=== PATIENT | female | born 1935 | race Asian ===

== ENCOUNTER 2019-10-05 23:36 | Inpatient (IN) | payer MEDICARE, MEDICAID ==
[~2019-10-05] VITALS: Ht 160 cm; Wt 46.0 kg
--- NOTE | 2019-10-05 23:40 | NUR ---
ED Nurse Note: Pt brought in by ambulance from [facility] c/o short of breath since 2199. Pt EMS, pt was satting at 77% RA and 91% on high flow NRB. Pt has pink frothy sputum. AO4 NAD. VSS. RT AT BEDSIDE FOR SUCTIONING
--- NOTE | 2019-10-05 23:40 | Emergency Room Report ---
History of Present Illness General Chief Complaint: Dyspnea/Respdistress Source: Patient, EMS Present Illness HPI 84-year-old female, presents with acute shortness of breath, hypoxia started 1 hour prior to arrival no known aggravating relieving factors severity is severe , constant, history is limited due to patient's acute shortness of breath, Allergies: Coded Allergies: No Known Allergies (Unverified , 10/05/19) Patient History Limited by: medical condition - Respiratory distress Reviewed Nursing Documentation: PMH: Agreed; PSxH: Agreed Review of Systems All Other Systems: limited - Acute shortness of breath Physical Exam Sp02 EP Interpretation: reviewed, abnormal - Reduced General Appearance: alert, moderate distress, cachetic Head: normocephalic, atraumatic Eyes: bilateral eye PERRL, bilateral eye EOMI ENT: uvula midline, dry mucus membranes Neck: supple, thyroid normal, supple/symm/no masses Respiratory: respiratory distress, decreased breath sounds, accessory muscle use, crackles, rales Cardiovascular #1: normal peripheral pulses, no edema, no gallop, no murmur, tachycardia Gastrointestinal: non tender, soft, no guarding, no rebound Musculoskeletal: normal inspection Neurologic: alert, oriented x3 Psychiatric: mood/affect normal Skin: no rash, warm/dry Procedures Critical Care Time Critical Care Time Given the critical condition in which the patient arrived, the patient was immediately assessed by myself and the nurse, and cardiac monitoring initiated due to the potential for rapid decompensation of the patient's clinical condition. During the course of the patient's stay, I spent a considerable amount of time at the bedside performing serial re-evaluations of the patient's hemodynamic and clinical status because of the recognized potential threat to life or limb in this condition. I then had a chance to review not only all of the available current laboratory and radiographic studies obtained today, but I also reviewed old records available to me at the time. Additionally, any ancillary information available including electronics test engineer records were reviewed. Sequential vital signs were obtained. Critical Care time of 37 minutes was performed exclusive of billable procedures. Medical Decision Making Diagnostic Impression: Primary Impression: Dyspnea Qualified Codes: R06.00 - Dyspnea, unspecified Additional Impressions: Respiratory distress CHF exacerbation Qualified Codes: I50.9 - Heart failure, unspecified ER Course 84-year-old female presents with acute shortness of breath, differential diagnosis includes ACS, and STEMI, CHF exacerbation, pneumonia Broad-spectrum antibiotic started, patient stated on BiPAP due to her respiratory distress patient improved with BiPAP administration additionally patient was given Lasix as well as nitroglycerin with significant improvement in her breathing Patient will be admitted to Dr. Schmitt Patient will be admitted to step down unit. Laboratory Tests Test 10/05/19 23:36 10/06/19 00:00 10/06/19 01:30 Arterial Blood pH 7.326 (7.350-7.450) Arterial Blood Partial Pressure CO2 51.0 mmHg (35.0-45.0) H Arterial Blood Partial Pressure O2 89.0 mmHg (75.0-100.0) Arterial Blood HCO3 26.0 mmol/L (22.0-26.0) Arterial Blood Oxygen Saturation 95.5 % (95-100) Arterial Blood Base Excess -0.8 (-2-2) Norm Test Positive White Blood Count 6.6 K/UL (4.8-10.8) Red Blood Count 4.45 M/UL (4.20-5.40) Hemoglobin 15.9 G/DL (12.0-16.0) Hematocrit 45.7 % (37.0-47.0) Mean Corpuscular Volume 103 FL (80-99) H Mean Corpuscular Hemoglobin 35.7 PG (27.0-31.0) H Mean Corpuscular Hemoglobin Concent 34.8 G/DL (32.0-36.0) Red Cell Distribution Width 12.9 % (11.6-14.8) Platelet Count 65 K/UL (150-450) L Mean Platelet Volume 9.4 FL (6.5-10.1) Neutrophils (%) (Auto) % (45.0-75.0) Lymphocytes (%) (Auto) % (20.0-45.0) Monocytes (%) (Auto) % (1.0-10.0) Eosinophils (%) (Auto) % (0.0-3.0) Basophils (%) (Auto) % (0.0-2.0) Differential Total Cells Counted 100 Neutrophils % (Manual) 97 % (45-75) H Lymphocytes % (Manual) 2 % (20-45) L Monocytes % (Manual) 1 % (1-10) Eosinophils % (Manual) 0 % (0-3) Basophils % (Manual) 0 % (0-2) Band Neutrophils 0 % (0-8) Platelet Estimate Decreased L Platelet Morphology Normal Prothrombin Time 13.6 SEC (9.30-11.50) H Prothrombin Time INR 1.3 (0.9-1.1) H Activated Partial Thromboplast Time 24 SEC (23-33) Urine Color Brown Urine Appearance Clear Urine pH 5 (4.5-8.0) Urine Specific [place] 1.015 (1.005-1.035) Urine Protein 2+ (NEGATIVE) H Urine Glucose (UA) Negative (NEGATIVE) Urine Ketones Negative (NEGATIVE) Urine Blood 2+ (NEGATIVE) H Urine Nitrite Negative (NEGATIVE) Urine Bilirubin Negative (NEGATIVE) Urine Urobilinogen 4 MG/DL (0.0-1.0) H Urine Leukocyte Esterase 1+ (NEGATIVE) H Urine RBC 2-4 /HPF (0 - 2) H Urine WBC 2-4 /HPF (0 - 2) Urine Squamous Epithelial Cells Occasional /LPF Urine Calcium Oxalate Crystals Few /LPF (NONE) Urine Amorphous Sediment Few /LPF (NONE) H Urine Bacteria Occasional /HPF (NONE) Urine Hyaline Casts 2-4 /LPF (NONE) H Urine Mucus Few /LPF (NONE/OCC) H Sodium Level 133 MMOL/L (136-145) L Potassium Level 5.4 MMOL/L (3.5-5.1) H Chloride Level 96 MMOL/L (98-107) L Carbon Dioxide Level 27 MMOL/L (21-32) Anion Gap 10 mmol/L (5-15) Blood Urea Nitrogen 32 mg/dL (7-18) H Creatinine 0.9 MG/DL (0.55-1.30) Estimate Glomerular Filtration Rate mL/min (>60) Glucose Level 122 MG/DL (74-106) H Lactic Acid Level 3.90 mmol/L (0.4-2.0) H 4.40 mmol/L (0.66-2.22) H Calcium Level 8.8 MG/DL (8.5-10.1) Phosphorus Level 5.2 MG/DL (2.5-4.9) H Magnesium Level 1.6 MG/DL (1.8-2.4) L Total Bilirubin 2.8 MG/DL (0.2-1.0) H Direct Bilirubin 0.9 MG/DL (0.0-0.3) H Aspartate Amino Transferase (AST) 65 U/L (15-37) H Alanine Aminotransferase (ALT) 49 U/L (12-78) Alkaline Phosphatase 103 U/L (46-116) Troponin I 0.069 ng/mL (0.000-0.056) Pro-B-Type Natriuretic Peptide > 60910 pg/mL (0-125) H Total Protein 6.7 G/DL (6.4-8.2) Albumin 3.0 G/DL (3.4-5.0) L Globulin 3.7 g/dL Albumin/Globulin Ratio 0.8 (1.0-2.7) L Lipase 134 U/L (73-393) EKG Diagnostic Results EKG Time: 00:07 EP Interpretation: Atrial fibrillation, rate 93, QTc 417, no acute ST elevations, right axis d Rhythm Strip Diag. Results Rhythm Strip Time: 02:27 EP Interpretation: yes Rate: 89 Rhythm: other - Atrial fibrillation Chest X-Ray Diagnostic Results Chest X-Ray Diagnostic Results : Chest X-Ray Ordered: Yes # of Views/Limited/Complete: 1 View Indication: Shortness of Breath EP Interpretation: Yes Interpretation: other - Pulmonary edema Impression: Other - Pulmonary edema Electronically Signed by: Rao Tafoya MD Disposition: ADMITTED INPATIENT Condition: Serious Rao Tafoya MD Oct 05, 2019 23:40
[2019-10-05] MEDS ORDERED: Cefepime HCl 2 GM in NS 110 ML IV ONE (23:45)
[2019-10-05] MEDS ORDERED: Nitroglycerin Patch 0.4mg TDERMAL ONE (23:45)
[2019-10-06] VITALS (9 sets, daily range): BP systolic 90–132; BP diastolic 41–82
--- NOTE | 2019-10-06 | NUR ---
ED Nurse Note: BANSAL INSERTED; INTACT AND PATENT; DRAINING WELL TO GRAVITY. IV ACCESS ESTABLISHED. BLOOD, INITIAL LACTIC, URINE, VRECRE MRSA SWAB COLLECTED; SENT DOWN TO LAB. WOUND NOTED ON SACRAL; PHOTO TAKEN AND UPLOADED.
[2019-10-06] MEDS ORDERED: SENOKOT8.6 MG PO (00:10)
[2019-10-06] MEDS ORDERED: COLACE100 MG ORAL (00:10)
[2019-10-06] MEDS ORDERED: SPIRONOLACTONE50 MG ORAL (00:10)
[2019-10-06] MEDS ORDERED: OMEPRAZOLE20 M2 ORAL (00:10)
[2019-10-06] MEDS ORDERED: GLUCOTROL10 MG ORAL (00:10)
[2019-10-06] MEDS ORDERED: ALBUTEROL2.5 MG/0.1 IH (00:10)
[2019-10-06] MEDS ORDERED: PANTOPRAZOLE SO40 MG ORAL (00:10)
[2019-10-06] MEDS ORDERED: GLUCOTROL5 MG ORAL (00:10)
[2019-10-06] MEDS ORDERED: Vancomycin 1 GM in NS 275 ML IVPB ONE (00:15)
[2019-10-06] MEDS ORDERED: Cefepime 2gm ONE (00:25)
[2019-10-06] MEDS ORDERED: Nitroglycerin Patch 0.4mg TDERMAL ONE (00:25)
[2019-10-06] MEDS ORDERED: TYLENOL325 M1 PO (00:44)
[2019-10-06] MEDS ORDERED: BISACODYL5 MG RECTAL (00:44)
[2019-10-06] MEDS ORDERED: PROSCAR5 MG ORAL (00:44)
[2019-10-06] MEDS ORDERED: MILK OF MA400 MG/51 ORAL (00:44)
[2019-10-06] MEDS ORDERED: NIFEDIPINE10 MG ORAL (00:44)
[2019-10-06] MEDS ORDERED: HUMULIN R100 UNIT/1 SUBQ (00:44)
[2019-10-06] MEDS ORDERED: METFORMIN HCL500 M1 ORAL (00:44)
[2019-10-06 00:45] LABS: APPEARANCE,URINE CLEAR; BILIRUBIN, URINE NEGATIVE (NEGATIVE); COLOR,URINE BROWN; GLUCOSE, URINE (UA) NEGATIVE (NEGATIVE); KETONES,URINE NEGATIVE (NEGATIVE); LEUKOCYTE ESTERASE ,URINE 1+ (NEGATIVE); NITRITE,URINE NEGATIVE (NEGATIVE); PH,URINE 5 (4.5-8.0); PROTEIN,URINE 2+ (NEGATIVE); UROBILINOGEN,URINE 4 MG/DL (0.0-1.0)
[2019-10-06 00:47] LABS: HEMATOCRIT 45.7 % (37.0-47.0); HEMOGLOBIN 15.9 G/DL (12.0-16.0); MEAN CORPUSCULAR VOLUME 103 FL (80-99); PLATELET COUNT 65 K/UL (150-450); RED BLOOD COUNT 4.45 M/UL (4.20-5.40); RED CELL DISTRIBUTION WIDTH 12.9 % (11.6-14.8); WHITE BLOOD COUNT 6.6 K/UL (4.8-10.8)
[2019-10-06 01:00] LABS: ANION GAP 10 mmol/L (5-15); BLOOD UREA NITROGEN 32 mg/dL (7-18); CALCIUM 8.8 MG/DL (8.5-10.1); CARBON DIOXIDE 27 MMOL/L (21-32); CHLORIDE 96 MMOL/L (98-107); CREATININE 0.9 MG/DL (0.55-1.30); POTASSIUM 5.4 MMOL/L (3.5-5.1); SODIUM 133 MMOL/L (136-145)
[2019-10-06 01:12] LABS: INR 1.3 (0.9-1.1)
[2019-10-06 01:19] LABS: ALANINE AMINOTRANSFERASE 49 U/L (12-78); ALBUMIN/GLOBULIN RATIO 0.8 (1.0-2.7); ALKALINE PHOSPHATASE 103 U/L (46-116); ASPARTATE AMINO TRANSFERASE 65 U/L (15-37); BILIRUBIN,TOTAL 2.8 MG/DL (0.2-1.0); PHOSPHORUS 5.2 MG/DL (2.5-4.9)
[2019-10-06 01:20] LABS: BILIRUBIN,DIRECT 0.9 MG/DL (0.0-0.3)
--- NOTE | 2019-10-06 01:33 | NUR ---
ED Nurse Note: LACTIC REFLEX COLLECTED; SENT DOWN TO LAB.
--- NOTE | 2019-10-06 02:00 | NUR ---
ED Nurse Note: patient resting in bed with no acute distress. family at bedside.
--- NOTE | 2019-10-06 04:00 | NUR ---
ED Nurse Note: patient sleeping in bed with no acute distress. pt and family member aware of pending admission. waiting for bed to be available.
--- NOTE | 2019-10-06 04:57 | NUR ---
NURSE NOTES: Received report from ROSA Angeles, pt. brought up form ER, pt.. in bed awake, appears to be alert to name xs'1- no signs or symptoms of acute cardiac or respiratory distress noted, ice cream freezer helper placed, full body assessment done- skin dry and thin, purplish reddish discoloration all over left and right arm- sacral area appears to be open wound 3" x 4"- wound care pictures taken- but unable to upload as camera is not working, wound care assessment done, call light within easy reach, bed in low position, bed engaged in position and side rails up x's3, pt. appears to be tolerating current BIPAP settings 10/5 Fio2 at 50%, Left and right AC both 18G IV s intact and patent, Orozco intact and draining to gravity, safety measures continued, will continue with plan of care. pt. has no belongings, Will call primary MD for orders. Addendum: 10/06/19 at 0525 by CODY GOULD RN RN Also upon assessment noted pace maker to left side chest area. Addendum: 10/06/19 at 0658 by CODY GOULD RN RN also noted ecchymosis to left eye.
--- NOTE | 2019-10-06 05:00 | NUR ---
TRANSFER TO FLOOR: Patient transferred to sdu 234 as ordered, per sera robbins. Report given to cony metz. patient stable for transfer. patient transferred to unit via gurney with 2 rn and rt. belongings list and admission packet sent with pt.
--- NOTE | 2019-10-06 06:23 | NUR ---
NURSE NOTES: Called Doctor for admission orders - Dr. Rincon answering- orders given over the phone- orders read back and verified- per Doctor Mckenzie, to keep pt. NPO for now as she is on BIPAP, [facility] medications gone over with doctor - to hold all Diabetes medications for now - and continue other medications okay over the phone, will carry out all orders given by doctor.
[2019-10-06] MEDS ORDERED: NIFEdipine 10mg cap ORAL PRN (06:30)
[2019-10-06] MEDS ORDERED: Milk of Magnesia 30ml Ud ORAL PRN (06:30)
[2019-10-06] MEDS: NovoLOG Insulin Flexpen SUBQ SCH ×4 (06:30→21:00)
[2019-10-06] MEDS ORDERED: Sennosides 8.6mg tab ORAL PRN (06:30)
--- NOTE | 2019-10-06 06:59 | NUR ---
HAND-OFF: Report given to ROSA Balderrama- pt. remains stable and no distress noted- nurse aware to f/u with doctor if he would like to order swallow eval, notify MD of plt 65, any lab orders and IV hydration.
--- NOTE | 2019-10-06 07:00 | NUR ---
NURSE NOTES: received patient report from ceci metz. patient is on bed awake. not in acute distress. on bipap at prescribed rate. bed is low and locked for safety. will follow plan of care. Addendum: 10/06/19 at 0740 by ALLIE SAMPSON RN disregard note above. wrong entry.
[2019-10-06] MEDS: Albuterol/Ipratropium 3ml neb HHN SCH ×5 (07:10→23:16)
--- NOTE | 2019-10-06 07:40 | NUR ---
NURSE NOTES: received patient report from cony metz. patient is on bed awake. not in acute distress. on bipap at prescribed rate. bed is low and locked for safety. will follow plan of care.
[2019-10-06] MEDS: Spironolactone 50mg tab ORAL SCH (08:57)
[2019-10-06] MEDS: Docusate 100mg cap ORAL SCH (08:57)
[2019-10-06] MEDS: Piperacillin/Tazobactam 3.375 GM in NS 110 ML IVPB SCH ×2 (08:59→15:26)
[2019-10-06] MEDS ORDERED: Heparin 5000 units/ml inj SUBQ SCH ×2 (09:00→21:00)
--- NOTE | 2019-10-06 09:30 | History and Physical Report ---
DATE OF ADMISSION: 10/06/2019 CHIEF COMPLAINT: Shortness of breath and respiratory failure. HISTORY OF PRESENT ILLNESS: The patient is an 84-year-old female. She has a history of congestive heart failure, sick sinus syndrome status post pacemaker, hyponatremia, dementia, and diabetes. She was transferred from a snf facility with complaints of acute onset of shortness of breath. On evaluation in the emergency room, the patient had x-ray evidence of possible pneumonia and congestive heart failure. She was started on broad-spectrum antibiotics. She required BiPAP for respiratory support. She is now admitted to a monitored bed. She is unable to provide any history. PAST MEDICAL HISTORY: As above. PAST SURGICAL HISTORY: Unknown. CURRENT MEDICATIONS: Reconciled and reviewed. ALLERGIES: None. FAMILY HISTORY: Unknown. SOCIAL HISTORY: There is no known history of tobacco, ethanol, or drugs. REVIEW OF SYSTEMS: From the patient is unobtainable as she is confused. PHYSICAL EXAMINATION: VITAL SIGNS: Temperature 97.5, pulse 76, respirations 20, and blood pressure 106/44. GENERAL: The patient is a thin elderly female, in no apparent distress. HEART: Regular rate and rhythm. LUNGS: Clear anteriorly with diminished breath sounds. ABDOMEN: Soft, nontender, and nondistended. EXTREMITIES: Without clubbing, cyanosis, or edema. LABORATORY DATA: Chest x-ray results are currently pending. UA showed only 2 to 4 wbc's. White count was 6, hemoglobin 15, hematocrit 45, and platelet count of 65,000. ABG showed pH of 7.326, pCO2 of 51, pO2 of 89, bicarb 26. O2 saturation 95%. Sodium is 133, potassium 5.4, chloride 96, bicarb 27. Lactic acid level is 4.4. Magnesium 1.6. Total bilirubin of 2.8 and indirect bilirubin of . Troponin was 0.069. Natriuretic peptide level was greater than 35,000. EKG showed AFib. ASSESSMENT: This is an unfortunate 84-year-old female admitted with complaints of shortness of breath secondary to congestive heart failure exacerbation, cannot rule out underlying pneumonia. Additional problems include hyponatremia, diabetes, and elevated liver function tests. PLAN: 1. Cautious diuresis. 2. IV antibiotics. 3. Supplemental oxygen. 4. Breathing treatments and BiPAP as needed. 5. Check venous duplex of the legs. 6. SCDs if duplex is negative. 7. Monitor electrolytes with diuretic treatment. Hakan Rincon M.D. DR: BENJAMÍN JOB#: [id number] CC:
--- NOTE | 2019-10-06 11:25 | Consultation ---
History of Present Illness General Date patient seen: Oct 06, 2019 Reason for Hospitalization: Dyspnea/Respdistress Present Illness HPI 84-year-old female, presents with acute shortness of breath, hypoxia started 1 hour prior to arrival no known aggravating relieving factors severity is severe , constant, history is limited due to patient's acute shortness of breath. family at bedside with her. no n/v/f/c. she has been otherwise okay. has multiple wounds on upper arms. family states she is a hard stick and multiple attempts for iv access in ED. surgery called to evaluate. abnormal LFT's, biliary obstruction? labs reviewed, exam performed. discussed with family. Allergies: Coded Allergies: No Known Allergies (Unverified , 10/05/19) Medication History Scheduled Albuterol Sulfate (Albuterol Sulfate), 2.5 MG IH EVERY 6 HOURS, (Reported) Bisacodyl* (Dulcolax*), 10 MG RECTAL PRN, (Reported) Docusate Sodium* (Colace*), 200 MG ORAL DAILY, (Reported) Glipizide* (Glipizide*), 2.5 MG ORAL BIDAC, (Reported) Glipizide* (Glipizide*), 1.25 MG ORAL BIDAC, (Reported) Metformin Hcl* (Metformin Hcl*), 500 MG ORAL TWICE A DAY, (Reported) Multivitamin Liquid* (Multi-Delyn*), 15 ML GT DAILY, (Reported) Omeprazole (Omeprazole), 20 MG ORAL DAILY, (Reported) Sennosides (Senokot), 8.6 MG PO DAILY, (Reported) Spironolactone* (Aldactone*), 50 MG ORAL DAILY, (Reported) Scheduled PRN Acetaminophen (Tylenol), 650 MG PO Q4HR PRN for Mild Pain (Pain Scale 1-3), ( Reported) Magnesium Hydroxide* (Milk Of Magnesia*), 30 ML ORAL DAILY PRN for Constipation, (Reported) Nifedipine* (Nifedipine*), 10 MG ORAL TID PRN for SBP > 170, (Reported) Miscellaneous Medications Insulin Regular, Human (Humulin R), SUBQ, (Reported) Discontinued Medications Glipizide (Glipizide Xl), 2.5 MG ORAL DAILY, (Reported) Discontinued Reason: Prescription changed Glipizide (Glipizide Er), 1.25 MG PO, (Reported) Discontinued Reason: Prescription changed Glipizide* (Glucotrol*), 2.5 MG ORAL ACBREAKFAST, (Reported) Discontinued Reason: Prescription changed Glipizide* (Glucotrol*), 1.25 MG ORAL AC, (Reported) Discontinued Reason: Prescription changed Patient History Limited by: age, medical condition History Provided By: Family Member, Medical Record, PMD Healthcare decision maker Olinda Gandara [phone]/ sandro cordova [phone] Resuscitation status Advanced Directive on File Past Medical/Surgical History Past Medical/Surgical History: (1) Hypoxia (2) Sepsis (3) PNA (pneumonia) (4) CHF exacerbation (5) Dyspnea (6) Respiratory distress Review of Systems Review of Symptoms cannot obtain given medical condition Physical Exam Physical Exam General appearance: no distress, appears stated age Head: Normocephalic, without obvious abnormality, atraumatic Eyes: conjunctivae/corneas clear. PERRL, EOM's intact. Fundi benign Throat: Lips, mucosa, and tongue normal. Teeth and gums normal Neck: supple, symmetrical, trachea midline, no adenopathy, thyroid: not enlarged, symmetric, no tenderness/mass/nodules, no carotid bruit and no JVD Lungs: clear to auscultation bilaterally Heart: regular rate and rhythm, S1, S2 normal, no murmur, click, rub or gallop Abdomen: soft, non-tender. Bowel sounds normal. No masses, no organomegaly Extremities: extremities with multiple bruises from iv sticks, mild edema in left upper arm. no cellulitis Pulses: symmetric Skin: frail with bruising Neurologic: Grossly normal Last 24 Hour Vital Signs Date Time Temp Pulse Resp B/P (MAP) Pulse Ox O2 Delivery O2 Flow Rate FiO2 10/06/19 09:05 71 28 97 Facial 30 10/06/19 08:00 Bi-pap 10/06/19 08:00 50 10/06/19 08:00 80 10/06/19 07:00 76 27 97 Facial 30 Bi-Pap 30 10/06/19 05:30 72 19 95 Facial 30 10/06/19 05:03 50 10/06/19 05:00 97.5 78 20 106/44 (64) 95 10/06/19 04:55 79 10/06/19 04:50 Bi-pap 10/06/19 04:40 99.0 79 12 126/81 97 Bi-pap 15.0 30 10/06/19 04:00 99.0 79 12 126/81 97 Bi-pap 30 10/06/19 03:04 77 19 98 Facial 30 10/06/19 02:00 99.0 86 18 132/82 97 Bi-pap 40 10/06/19 00:32 121/82 10/06/19 00:30 89 18 97 Facial 40 10/06/19 00:30 89 18 97 Bi-Pap 40 10/06/19 00:00 99.0 86 32 121/82 91 Non-Rebreather 15.0 10/06/19 00:00 86 32 Non-Rebreather 15.0 10/05/19 23:36 99.0 86 32 121/82 (95) 91 Non-Rebreather 15.0 Intake and Output 10/05/19 10/06/19 19:00 07:00 Output Total 200 ml Balance -200 ml Output Urine Total 200 ml # Bowel Movements 2 Laboratory Tests Test 10/05/19 23:36 10/06/19 00:00 10/06/19 01:30 Arterial Blood pH 7.326 (7.350-7.450) Arterial Blood Partial Pressure CO2 51.0 mmHg (35.0-45.0) H Arterial Blood Partial Pressure O2 89.0 mmHg (75.0-100.0) Arterial Blood HCO3 26.0 mmol/L (22.0-26.0) Arterial Blood Oxygen Saturation 95.5 % (95-100) Arterial Blood Base Excess -0.8 (-2-2) Norm Test Positive White Blood Count 6.6 K/UL (4.8-10.8) Red Blood Count 4.45 M/UL (4.20-5.40) Hemoglobin 15.9 G/DL (12.0-16.0) Hematocrit 45.7 % (37.0-47.0) Mean Corpuscular Volume 103 FL (80-99) H Mean Corpuscular Hemoglobin 35.7 PG (27.0-31.0) H Mean Corpuscular Hemoglobin Concent 34.8 G/DL (32.0-36.0) Red Cell Distribution Width 12.9 % (11.6-14.8) Platelet Count 65 K/UL (150-450) L Mean Platelet Volume 9.4 FL (6.5-10.1) Neutrophils (%) (Auto) % (45.0-75.0) Lymphocytes (%) (Auto) % (20.0-45.0) Monocytes (%) (Auto) % (1.0-10.0) Eosinophils (%) (Auto) % (0.0-3.0) Basophils (%) (Auto) % (0.0-2.0) Differential Total Cells Counted 100 Neutrophils % (Manual) 97 % (45-75) H Lymphocytes % (Manual) 2 % (20-45) L Monocytes % (Manual) 1 % (1-10) Eosinophils % (Manual) 0 % (0-3) Basophils % (Manual) 0 % (0-2) Band Neutrophils 0 % (0-8) Platelet Estimate Decreased L Platelet Morphology Normal Prothrombin Time 13.6 SEC (9.30-11.50) H Prothromb Time International Ratio 1.3 (0.9-1.1) H Activated Partial Thromboplast Time 24 SEC (23-33) Urine Color Brown Urine Appearance Clear Urine pH 5 (4.5-8.0) Urine Specific [place] 1.015 (1.005-1.035) Urine Protein 2+ (NEGATIVE) H Urine Glucose (UA) Negative (NEGATIVE) Urine Ketones Negative (NEGATIVE) Urine Blood 2+ (NEGATIVE) H Urine Nitrite Negative (NEGATIVE) Urine Bilirubin Negative (NEGATIVE) Urine Urobilinogen 4 MG/DL (0.0-1.0) H Urine Leukocyte Esterase 1+ (NEGATIVE) H Urine RBC 2-4 /HPF (0 - 2) H Urine WBC 2-4 /HPF (0 - 2) Urine Squamous Epithelial Cells Occasional /LPF Urine Calcium Oxalate Crystals Few /LPF (NONE) Urine Amorphous Sediment Few /LPF (NONE) H Urine Bacteria Occasional /HPF (NONE) Urine Hyaline Casts 2-4 /LPF (NONE) H Urine Mucus Few /LPF (NONE/OCC) H Sodium Level 133 MMOL/L (136-145) L Potassium Level 5.4 MMOL/L (3.5-5.1) H Chloride Level 96 MMOL/L (98-107) L Carbon Dioxide Level 27 MMOL/L (21-32) Anion Gap 10 mmol/L (5-15) Blood Urea Nitrogen 32 mg/dL (7-18) H Creatinine 0.9 MG/DL (0.55-1.30) Estimat Glomerular Filtration Rate mL/min (>60) Glucose Level 122 MG/DL (74-106) H Lactic Acid Level 3.90 mmol/L (0.4-2.0) H 4.40 mmol/L (0.66-2.22) H Calcium Level 8.8 MG/DL (8.5-10.1) Phosphorus Level 5.2 MG/DL (2.5-4.9) H Magnesium Level 1.6 MG/DL (1.8-2.4) L Total Bilirubin 2.8 MG/DL (0.2-1.0) H Direct Bilirubin 0.9 MG/DL (0.0-0.3) H Aspartate Amino Transf (AST/SGOT) 65 U/L (15-37) H Alanine Aminotransferase (ALT/SGPT) 49 U/L (12-78) Alkaline Phosphatase 103 U/L (46-116) Troponin I 0.069 ng/mL (0.000-0.056) Pro-B-Type Natriuretic Peptide > 39090 pg/mL (0-125) H Total Protein 6.7 G/DL (6.4-8.2) Albumin 3.0 G/DL (3.4-5.0) L Globulin 3.7 g/dL Albumin/Globulin Ratio 0.8 (1.0-2.7) L Lipase 134 U/L (73-393) Height (Feet): 5 Height (Inches): 3.00 Weight (Pounds): 110 Medications Current Medications Medications (Trade) Dose Ordered Sig/Zach Route PRN Reason Start Time Stop Time Status Last Admin Dose Admin Acetaminophen (Tylenol) 650 mg Q4H PRN ORAL Mild Pain/Temp > 100.5 10/06/19 06:30 11/05/19 06:29 Albuterol/ Ipratropium (Albuterol/ Ipratropium) 3 ml Q4HRT HHN 10/06/19 07:00 10/11/19 06:59 10/06/19 07:10 Bisacodyl (Dulcolax) 10 mg DAILYPRN PRN RECTAL Constipation 10/06/19 06:30 11/05/19 06:29 Dextrose (Dextrose 50%) 25 ml Q30M PRN IV Hypoglycemia 10/06/19 06:30 11/05/19 06:29 Dextrose (Dextrose 50%) 50 ml Q30M PRN IV Hypoglycemia 10/06/19 06:30 11/05/19 06:29 Docusate Sodium (Colace) 200 mg DAILY ORAL 10/06/19 09:00 11/05/19 08:59 10/06/19 08:57 Furosemide (Lasix) 40 mg DAILY IV 10/06/19 09:00 11/05/19 08:59 10/06/19 08:57 Heparin Sodium (Porcine) (Heparin 5000 units/ml) 5,000 units EVERY 12 HOURS SUBQ 10/06/19 09:00 11/05/19 08:59 UNV Insulin Aspart (NovoLOG) BEFORE MEALS AND HS SUBQ 10/06/19 06:30 11/05/19 06:29 Magnesium Hydroxide (Mom) 30 ml DAILYPRN PRN ORAL Constipation 10/06/19 06:30 11/05/19 06:29 Midodrine (Pro-Amatine) 2.5 mg THREE TIMES A DAY ORAL 10/06/19 09:00 11/05/19 08:59 10/06/19 08:57 Nifedipine (Adalat) 10 mg Q8HR PRN ORAL SBP >170 10/06/19 06:30 11/05/19 06:29 Pantoprazole (Protonix) 40 mg 0630 ORAL 10/07/19 06:30 11/06/19 06:29 Piperacillin Sod/ Tazobactam Sod 3.375 gm/Sodium Chloride 110 ml @ 27.5 mls/hr Q8H IVPB 10/06/19 08:00 10/13/19 07:59 10/06/19 08:59 Sennosides (Senokot) 8.6 mg DAILY PRN ORAL Constipation 10/06/19 06:30 11/05/19 06:29 Spironolactone (Aldactone) 50 mg DAILY ORAL 10/06/19 09:00 11/05/19 08:59 Vancomycin HCl (Vanco rx to dose) 1 ea DAILY PRN MISC Per rx protocol 10/06/19 06:30 11/05/19 06:29 Vancomycin HCl 1 gm/Sodium Chloride 275 ml @ 183.708 mls/hr Q24H IVPB 10/07/19 00:00 10/12/19 00:00 Assessment/Plan Problem List: (1) Abnormal LFTs (liver function tests) Assessment & Plan: lactic acidosis t bili elevated lft's abnormal US abd ordered trend labs okay for diet will follow with recs thank you ICD Codes: R94.5 - Abnormal results of liver function studies SNOMED: 409303126 (2) Decubitus skin ulcer ICD Codes: L89.90 - Pressure ulcer of unspecified site, unspecified stage SNOMED: 645622760 Norris Davies Oct 06, 2019 11:25
--- NOTE | 2019-10-06 14:00 | NUR ---
NURSE NOTES: dr sanchez made aware that patients Na133, k 5.4, mag 1.6 and l[address] acid 4.40. [address] sanchez ordered kayexalate 30g enema. will take note and carry out.
[2019-10-06] MEDS ORDERED: Sodium Polystyrene Sulfonate Enema RECTAL ONE (15:30)
[2019-10-06] MEDS: Xarelto 15mg tab ORAL SCH (17:28)
--- NOTE | 2019-10-06 19:29 | NUR ---
NURSE NOTES: report given to hazel metz
--- NOTE | 2019-10-06 19:30 | NUR ---
NURSE NOTES: received pt from ROSA Balderrama. pt is observed in bed, AO X1, no s/sx of pain noted at this time. pt's son is at bedside. pt is on 2 L O2 via NC, tolerating well. no s/sx of respiratory distress noted. no acute cardiac distress noted. F/C is patent and intact, draining larry urine to gravity. skin alterations noted. LAC 18 g and RAC 18 g IV sites are patent and intact, asymptomatic. bed in lowest position and locked, siderails up X3, call light within reach. will continue to monitor.
--- NOTE | 2019-10-06 20:54 | NUR ---
NURSE NOTES: called and informed MD regarding pt's low BP readings of 88/38 and 85/42. received new orders from MD. will carry out.
[2019-10-06] MEDS ORDERED: NS 250 ML IVPB ONE (21:15)
[2019-10-06] MEDS ORDERED: Midodrine 10mg tab ORAL SCH (21:15)
[2019-10-06] MEDS: Vancomycin 1 GM in NS 275 ML IVPB SCH (23:52)
[2019-10-07] VITALS: BP 93/45
[2019-10-07] MEDS: Piperacillin/Tazobactam 3.375 GM in NS 110 ML IVPB SCH ×3 (00:28→15:57)
[2019-10-07] MEDS: Albuterol/Ipratropium 3ml neb HHN SCH ×5 (02:50→21:27)
[2019-10-07 04:00] VITALS: BP 108/64
[2019-10-07 05:18] LABS: HEMATOCRIT 39.3 % (37.0-47.0); HEMOGLOBIN 14.1 G/DL (12.0-16.0); MEAN CORPUSCULAR VOLUME 101 FL (80-99); PLATELET COUNT 70 K/UL (150-450); RED BLOOD COUNT 3.88 M/UL (4.20-5.40); RED CELL DISTRIBUTION WIDTH 12.9 % (11.6-14.8); WHITE BLOOD COUNT 10.7 K/UL (4.8-10.8)
[2019-10-07 05:22] LABS: INR 1.6 (0.9-1.1)
[2019-10-07 06:19] LABS: ALANINE AMINOTRANSFERASE 41 U/L (12-78); ALBUMIN 2.4 G/DL (3.4-5.0); ALBUMIN/GLOBULIN RATIO 0.8 (1.0-2.7); ALKALINE PHOSPHATASE 72 U/L (46-116); ANION GAP 5 mmol/L (5-15); ASPARTATE AMINO TRANSFERASE 45 U/L (15-37); BILIRUBIN,TOTAL 2.5 MG/DL (0.2-1.0); BLOOD UREA NITROGEN 30 mg/dL (7-18); CALCIUM 8.1 MG/DL (8.5-10.1); CARBON DIOXIDE 35 MMOL/L (21-32); CHLORIDE 99 MMOL/L (98-107); CREATININE 0.8 MG/DL (0.55-1.30); POTASSIUM 2.9 MMOL/L (3.5-5.1); SODIUM 139 MMOL/L (136-145)
[2019-10-07] MEDS: NovoLOG Insulin Flexpen SUBQ SCH ×4 (06:30→21:39)
--- NOTE | 2019-10-07 07:30 | NUR ---
NURSE NOTES: Received report from ROSA Vidal. Patient is resting in bed, in stable condition. Observed no presence of pain or discomfort a this time. Dr. Rincon at nurse station, made aware of potassium level of 2.9 no new orders at this time. Dr. Rincon ordered STAT ABG and to be made aware of results. Patient is on 2 L nasal cannula SpO2 100%. Bed is in lowest position, brakes engaged. Call light is kept within easy reach. Will continue to monitor patient.
--- NOTE | 2019-10-07 07:41 | General Progress Note ---
Assessment/Plan Problem List: (1) Afib ICD Codes: I48.91 - Unspecified atrial fibrillation SNOMED: 73315760 (2) CHF exacerbation ICD Codes: I50.9 - Heart failure, unspecified SNOMED: 412460826, [id number] Qualifiers: Qualified Codes: I50.9 - Heart failure, unspecified (3) Sepsis ICD Codes: A41.9 - Sepsis, unspecified organism SNOMED: 97083674 (4) PNA (pneumonia) ICD Codes: J18.9 - Pneumonia, unspecified organism SNOMED: 928914765 (5) Decubitus skin ulcer ICD Codes: L89.90 - Pressure ulcer of unspecified site, unspecified stage SNOMED: 419357215 (6) Abnormal LFTs (liver function tests) ICD Codes: R94.5 - Abnormal results of liver function studies SNOMED: 564586878 Status: stable, not improved, unchanged Assessment/Plan: cautious diuresis echo follow up cxr iv abx abg pending bipap resp rx swallow eval abd us Subjective ROS Limited/Unobtainable: No Constitutional: Reports: malaise, weakness HEENT: Reports: no symptoms Cardiovascular: Reports: no symptoms Respiratory: Reports: SOB at rest Gastrointestinal/Abdominal: Reports: difficulty swallowing Genitourinary: Reports: no symptoms Neurologic/Psychiatric: Reports: pre-existing deficit Endocrine: Reports: no symptoms Hematologic/Lymphatic: Reports: anemia Allergies: Coded Allergies: No Known Allergies (Unverified , 10/05/19) All Systems: reviewed and negative except above Subjective hypotensive last night. +sob. given ivf bolus. weak. off bipap currently. Objective Last 24 Hour Vital Signs Date Time Temp Pulse Resp B/P (MAP) Pulse Ox O2 Delivery O2 Flow Rate FiO2 10/07/19 04:00 81 10/07/19 04:00 Bi-pap 10/07/19 04:00 97.6 71 16 108/64 (79) 100 10/07/19 04:00 2.0 10/07/19 02:50 60 20 100 65 20 100 10/07/19 02:50 62 18 100 Nasal Cannula 2.0 28 60 18 100 10/07/19 00:00 98.1 69 20 93/45 (61) 100 10/07/19 00:00 Bi-pap 2/3/20 00:00 2.0 10/07/19 00:00 75 10/06/19 23:16 70 20 100 72 20 100 10/06/19 23:16 72 18 100 Nasal Cannula 2.0 28 70 18 100 10/06/19 20:09 63 20 100 65 20 100 10/06/19 20:09 70 18 100 Nasal Cannula 2.0 28 68 18 100 10/06/19 20:09 68 18 100 Nasal Cannula 2.0 28 10/06/19 20:00 2.0 10/06/19 20:00 74 10/06/19 20:00 Bi-pap 10/06/19 17:07 81 10/06/19 16:46 97.7 74 24 100/42 (61) 97 10/06/19 16:00 Bi-pap 10/06/19 16:00 97.6 70 25 96/41 (59) 100 10/06/19 16:00 14.0 10/06/19 15:28 65 20 99 62 20 100 10/06/19 12:13 68 20 98 65 18 99 10/06/19 12:07 14.0 10/06/19 12:00 Bi-pap 10/06/19 12:00 97.6 70 25 96/41 (59) 100 10/06/19 11:44 63 10/06/19 11:00 69 16 99 10/06/19 09:05 71 28 97 Facial 30 10/06/19 08:00 Bi-pap 10/06/19 08:00 50 10/06/19 08:00 97.9 73 31 90/42 (58) 97 10/06/19 08:00 80 Intake and Output 10/06/19 10/07/19 19:00 07:00 Intake Total 385.000 ml Output Total 500 ml 1600 ml Balance -500 ml -1215.000 ml Intake IV Total 385.000 ml Output Urine Total 500 ml 1600 ml # Bowel Movements 4 4 Laboratory Tests 10/07/19 04:25: White Blood Count 10.7#, Red Blood Count 3.88L, Hemoglobin 14.1, Hematocrit 39.3 , Mean Corpuscular Volume 101H, Mean Corpuscular Hemoglobin 36.3H, Mean Corpuscular Hemoglobin Concent 35.9, Red Cell Distribution Width 12.9, Platelet Count 70L, Mean Platelet Volume 8.2, Neutrophils (%) (Auto) , Lymphocytes (%) ( Auto) , Monocytes (%) (Auto) , Eosinophils (%) (Auto) , Basophils (%) (Auto) , Neutrophils % (Manual) [Pending], Lymphocytes % (Manual) [Pending], Platelet Estimate [Pending], Platelet Morphology [Pending], Erythrocyte Sedimentation Rate 18, Prothrombin Time 16.4H, Prothromb Time International Ratio 1.6H, Activated Partial Thromboplast Time 33, Sodium Level 139, Potassium Level 2.9L, Chloride Level 99, Carbon Dioxide Level 35H, Anion Gap 5, Blood Urea Nitrogen 30H, Creatinine 0.8, Estimat Glomerular Filtration Rate , Glucose Level 110H, Lactic Acid Level 1.10, Calcium Level 8.1L, Total Bilirubin 2.5H, Direct Bilirubin 1.0H, Aspartate Amino Transf (AST/SGOT) 45H, Alanine Aminotransferase (ALT/SGPT) 41, Alkaline Phosphatase 72, C-Reactive Protein, Quantitative 15.5H, Total Protein 5.5L, Albumin 2.4L, Globulin 3.1, Albumin/Globulin Ratio 0.8L, Amylase Level 17L, Lipase 70L Height (Feet): 5 Height (Inches): 3.00 Weight (Pounds): 110 General Appearance: WD/WN, lethargic, confused, cachetic, thin Neck: supple Cardiovascular: normal rate, regular rhythm Respiratory/Chest: lungs clear Abdomen: normal bowel sounds, non tender, soft, no organomegaly Edema: no edema noted Arm (L), no edema noted Arm (R), no edema noted Leg (L), no edema noted Leg (R), no edema noted Pedal (L), no edema noted Pedal (R), no edema noted Generalized Hakan Rincon MD Oct 07, 2019 07:41
[2019-10-07] MEDS ORDERED: Sodium Chloride for KCL Premix X 3hrs IV SCH (07:45)
[2019-10-07] MEDS: Spironolactone 50mg tab ORAL SCH (08:11)
[2019-10-07] MEDS: Xarelto 15mg tab ORAL SCH (08:11)
[2019-10-07] MEDS: Docusate 100mg cap ORAL SCH (08:12)
--- NOTE | 2019-10-07 08:30 | NUR ---
NURSE NOTES: Dr. Villanueva seen and examined patient at bedside. Made aware of this morning's, 10/07/19, ABG results, Dr. Villanueva acknowledged and states has seen them. No new orders given at this time. Noted. Will continue to monitor patient.
--- NOTE | 2019-10-07 08:43 | Pulmonology Progress Note ---
Assessment/Plan Assessment/Plan CHF pulmonary edema acute respiratory failure pulmonary congestion sepsis hypoxemia severe PCM PLAN care noted monitor fluids respiratory care acid base better antibiotics empiric care noted impression, plan, and exam edited and reviewed in detail care discussed with RN Subjective ROS Limited/Unobtainable: Yes Allergies: Coded Allergies: No Known Allergies (Unverified , 10/05/19) Subjective care noted respiratory care reviewed on oxygen Objective Last 24 Hour Vital Signs Date Time Temp Pulse Resp B/P (MAP) Pulse Ox O2 Delivery O2 Flow Rate FiO2 10/07/19 08:00 Bi-pap 10/07/19 08:00 2.0 10/07/19 07:08 51 16 97 Nasal Cannula 2.0 28 50 16 95 10/07/19 04:00 81 10/07/19 04:00 Bi-pap 10/07/19 04:00 97.6 71 16 108/64 (79) 100 10/07/19 04:00 2.0 10/07/19 02:50 60 20 100 65 20 100 10/07/19 02:50 62 18 100 Nasal Cannula 2.0 28 60 18 100 10/07/19 00:00 98.1 69 20 93/45 (61) 100 10/07/19 00:00 Bi-pap 10/07/19 00:00 2.0 10/07/19 00:00 75 10/06/19 23:16 70 20 100 72 20 100 10/06/19 23:16 72 18 100 Nasal Cannula 2.0 28 70 18 100 10/06/19 20:09 63 20 100 65 20 100 10/06/19 20:09 70 18 100 Nasal Cannula 2.0 28 68 18 100 10/06/19 20:09 68 18 100 Nasal Cannula 2.0 28 10/06/19 20:00 2.0 10/06/19 20:00 74 10/06/19 20:00 Bi-pap 10/06/19 17:07 81 10/06/19 16:46 97.7 74 24 100/42 (61) 97 10/06/19 16:00 Bi-pap 10/06/19 16:00 97.6 70 25 96/41 (59) 100 10/06/19 16:00 14.0 10/06/19 15:28 65 20 99 62 20 100 10/06/19 12:13 68 20 98 65 18 99 10/06/19 12:07 14.0 10/06/19 12:00 Bi-pap 10/06/19 12:00 97.6 70 25 96/41 (59) 100 10/06/19 11:44 63 10/06/19 11:00 69 16 99 10/06/19 09:05 71 28 97 Facial 30 Intake and Output 10/06/19 10/07/19 19:00 07:00 Intake Total 385.000 ml Output Total 500 ml 1600 ml Balance -500 ml -1215.000 ml Intake IV Total 385.000 ml Output Urine Total 500 ml 1600 ml # Bowel Movements 4 4 Objective WDWN cachectic reduced breath sounds bilaterally without rhonchi or wheeze [id number] without MRG NABS nontender no HSM no CCE nonfocal reduced skin turgor reviewed and edited Microbiology Date/Time Source Procedure Growth Status 10/06/19 00:15 Blood Blood Culture - Preliminary NO GROWTH AFTER 24 HOURS Resulted 10/06/19 00:00 Blood Blood Culture - Preliminary NO GROWTH AFTER 24 HOURS Resulted Laboratory Tests 10/07/19 04:25: White Blood Count 10.7#, Red Blood Count 3.88L, Hemoglobin 14.1, Hematocrit 39.3 , Mean Corpuscular Volume 101H, Mean Corpuscular Hemoglobin 36.3H, Mean Corpuscular Hemoglobin Concent 35.9, Red Cell Distribution Width 12.9, Platelet Count 70L, Mean Platelet Volume 8.2, Neutrophils (%) (Auto) , Lymphocytes (%) ( Auto) , Monocytes (%) (Auto) , Eosinophils (%) (Auto) , Basophils (%) (Auto) , Neutrophils % (Manual) [Pending], Lymphocytes % (Manual) [Pending], Platelet Estimate [Pending], Platelet Morphology [Pending], Erythrocyte Sedimentation Rate 18, Prothrombin Time 16.4H, Prothromb Time International Ratio 1.6H, Activated Partial Thromboplast Time 33, Sodium Level 139, Potassium Level 2.9L, Chloride Level 99, Carbon Dioxide Level 35H, Anion Gap 5, Blood Urea Nitrogen 30H, Creatinine 0.8, Estimat Glomerular Filtration Rate , Glucose Level 110H, Lactic Acid Level 1.10, Calcium Level 8.1L, Total Bilirubin 2.5H, Direct Bilirubin 1.0H, Aspartate Amino Transf (AST/SGOT) 45H, Alanine Aminotransferase (ALT/SGPT) 41, Alkaline Phosphatase 72, C-Reactive Protein, Quantitative 15.5H, Total Protein 5.5L, Albumin 2.4L, Globulin 3.1, Albumin/Globulin Ratio 0.8L, Amylase Level 17L, Lipase 70L 10/07/19 07:40: Arterial Blood pH 7.374, Arterial Blood Partial Pressure CO2 58.5*H, Arterial Blood Partial Pressure O2 72.5L, Arterial Blood HCO3 33.4H, Arterial Blood Oxygen Saturation 93.9L, Arterial Blood Base Excess 6.2H, Norm Test Positive Current Medications Medications (Trade) Dose Ordered Sig/Zach Route PRN Reason Start Time Stop Time Status Last Admin Dose Admin Acetaminophen (Tylenol) 650 mg Q4H PRN ORAL Mild Pain/Temp > 100.5 10/06/19 06:30 11/05/19 06:29 Albuterol/ Ipratropium (Albuterol/ Ipratropium) 3 ml Q4HRT HHN 10/06/19 07:00 10/11/19 06:59 10/07/19 06:58 Bisacodyl (Dulcolax) 10 mg DAILYPRN PRN RECTAL Constipation 10/06/19 06:30 11/05/19 06:29 Dextrose (Dextrose 50%) 25 ml Q30M PRN IV Hypoglycemia 10/06/19 06:30 11/05/19 06:29 Dextrose (Dextrose 50%) 50 ml Q30M PRN IV Hypoglycemia 10/06/19 06:30 11/05/19 06:29 Docusate Sodium (Colace) 200 mg DAILY ORAL 10/06/19 09:00 11/05/19 08:59 10/06/19 08:57 Furosemide (Lasix) 40 mg DAILY IV 10/06/19 09:00 11/05/19 08:59 10/07/19 08:10 Insulin Aspart (NovoLOG) BEFORE MEALS AND HS SUBQ 10/06/19 06:30 11/05/19 06:29 Magnesium Hydroxide (Mom) 30 ml DAILYPRN PRN ORAL Constipation 10/06/19 06:30 11/05/19 06:29 Midodrine (Pro-Amatine) 10 mg THREE TIMES A DAY ORAL 10/07/19 09:00 11/05/19 08:59 10/07/19 08:11 Nifedipine (Adalat) 10 mg Q8HR PRN ORAL SBP >170 10/06/19 06:30 11/05/19 06:29 Pantoprazole (Protonix) 40 mg 0630 ORAL 10/07/19 06:30 11/06/19 06:29 10/07/19 06:27 Piperacillin Sod/ Tazobactam Sod 3.375 gm/Sodium Chloride 110 ml @ 27.5 mls/hr Q8H IVPB 10/06/19 08:00 10/13/19 07:59 10/07/19 08:13 Potassium Chloride 100 ml @ 100 mls/hr Q1HR IVPB 10/07/19 08:00 10/07/19 10:59 10/07/19 08:10 Rivaroxaban (Xarelto) 15 mg DAILY ORAL 10/06/19 17:10 11/06/19 08:59 10/07/19 08:11 Sennosides (Senokot) 8.6 mg DAILY PRN ORAL Constipation 10/06/19 06:30 11/05/19 06:29 Sodium Chloride 300 ml @ 100 mls/hr Q3H IV 10/07/19 07:45 10/07/19 10:44 10/07/19 08:10 Spironolactone (Aldactone) 50 mg DAILY ORAL 10/06/19 09:00 11/05/19 08:59 10/07/19 08:11 Vancomycin HCl (Vanco rx to dose) 1 ea DAILY PRN MISC Per rx protocol 10/06/19 06:30 11/05/19 06:29 Vancomycin HCl 1 gm/Sodium Chloride 275 ml @ 183.708 mls/hr Q24H IVPB 10/07/19 00:00 10/12/19 00:00 10/06/19 23:52 Mason Villanueva MD Oct 07, 2019 08:43
[2019-10-07] MEDS ORDERED: Xarelto 15mg tab ORAL SCH (09:00)
--- NOTE | 2019-10-07 09:01 | Consultation ---
DATE OF CONSULTATION: 10/06/2019 PULMONARY CONSULTATION CONSULTING PHYSICIAN: Mason Villanueva M.D. REFERRING PHYSICIAN: Amrit Schmitt M.D. REASON FOR CONSULTATION: Shortness of breath and respiratory distress. HISTORY OF PRESENT ILLNESS: This is an 84-year-old female patient with history of CHF and sick sinus syndrome. The patient was transferred with noted worsening shortness of breath and distress. X-ray with possible pneumonia and CHF. The patient was placed on IV antibiotics and admitted to the telemetry/step-down unit. The patient requiring BiPAP therapy on admit. The patient's current evaluation reveals that she is currently on a facial mask. She does have evidence of acute respiratory acidosis at present She is unable to provide any history. History is noted from chart. ER chart was reviewed. Care discussed with admitting physician as well. The patient remains ill and withdrawn at this time. The patient has had multiple medical problems. The patient is at risk for respiratory failure. PAST MEDICAL HISTORY: Notable for CHF, sick sinus syndrome, pacemaker, dementia, and diabetes. MEDICATIONS: Reviewed. ALLERGIES: Reviewed. SOCIAL HISTORY: The patient is a [facility] patient. Nonsmoker and nondrinker at this time. FAMILY HISTORY: Not obtainable. REVIEW OF SYSTEMS: Not obtainable. PHYSICAL EXAMINATION: GENERAL: The patient is an ill-appearing female of advanced age. VITAL SIGNS: Blood pressure 106/44, heart rate 76, respiratory rate 20, saturation is 100%. The patient is on 30% facial mask. HEENT: Overall negative. NECK: Supple. The patient has mild jugular venous distention. LUNGS: With coarse breath sounds. Moderate air entry. CARDIAC: S1 and S2, noted. Soft systolic murmur. The patient's rhythm is irregularly irregular. ABDOMEN: Soft, nontender. No distention. EXTREMITIES: No cyanosis or clubbing. NEUROLOGICAL: Withdrawn at this time, responds to pain. SKIN: Noted. LABORATORY DATA: Reviewed. Platelets of 65,000, CBC is otherwise negative. Arterial blood gas, 7.32/51/89/26. Chemistries with lactic acid 3.9, sodium 133, potassium 5.4. Troponin is elevated. [place] [address]. IMPRESSION: 1. Acute on chronic respiratory failure. 2. Pulmonary edema. 3. Possible pneumonia. 4. Thrombocytopenia of unclear etiology. 5. Hyponatremia. 6. Hyperkalemia. 7. Mild protein-calorie malnutrition. 8. Possible non-STEMI. 9. Dementia. 10. Hypoxic metabolic encephalopathy. RECOMMENDATIONS: Supportive care. IV antibiotics empirically. BiPAP as needed. Monitor arterial blood gases. Lasix daily and monitor natriuretic peptide. DVT prophylaxis. Close followup of imaging. At present, the patient is Full Code. Monitor for acute deterioration in respiratory failure. Mason Villanueva M.D. DR: GIANCARLO JOB#: [id number] CC: [email or web address]
--- NOTE | 2019-10-07 09:19 | NUR ---
RADIOLOGY DEPT., CHEST X-RAY DONE.-P.DYE
--- NOTE | 2019-10-07 10:09 | NUR ---
RD ASSESSMENT & RECOMMENDATIONS SEE CARE ACTIVITY FOR COMPLETE ASSESSMENT DAILY ESTIMATED NEEDS: Needs based on Underweight, wound 48.4kg 30-35 kcals/kg 3020-0953 total kcals 1.25-1.5 g protein/kg 61-73 g total protein Fluid per MD, on lasix NUTRITION DIAGNOSIS: Increased kcal and pro needs r/t wound healing and wasting as evidenced by sacral wound, eval pending, pt w/ generalized moderate to severe muscle and fat wasting. CURRENT DIET: NPO PO DIET RECOMMENDATIONS-->> Liberalized REGULAR DIET / texture per BURR MACHINE OPERATOR ENTERAL NUTRITION RECOMMENDATIONS: Consult RD for non oral feeds should pt remain not alert ADDITIONAL RECOMMENDATIONS: 1) Maintain calibrated bed scale wts 2) B[employer] MACHINE OPERATOR EVAL PRIOR TO ORAL DIET -> consider non oral feeds if pt remains minimally alert 3) Wound care: w/ diet order add JERRY BID + Vit C 250,g daily 4) Continuous oral hygiene care-> pt appears to have severe dry mouth 5) Rec Ensure TID w/ oral diet 6) Rec added D5 w/ NPO status to prevent hypoglycemia
--- NOTE | 2019-10-07 11:05 | Surgery Progress Note ---
Surgery Progress Note Subjective Additional Comments no acute events lactic acidosis resolved labs reviewed exam stable Objective Last 24 Hour Vital Signs Date Time Temp Pulse Resp B/P (MAP) Pulse Ox O2 Delivery O2 Flow Rate FiO2 10/07/19 08:00 Bi-pap 10/07/19 08:00 2.0 10/07/19 07:08 51 16 97 Nasal Cannula 2.0 28 50 16 95 10/07/19 04:00 81 10/07/19 04:00 Bi-pap 10/07/19 04:00 97.6 71 16 108/64 (79) 100 10/07/19 04:00 2.0 10/07/19 02:50 60 20 100 65 20 100 10/07/19 02:50 62 18 100 Nasal Cannula 2.0 28 60 18 100 10/07/19 00:00 98.1 69 20 93/45 (61) 100 10/07/19 00:00 Bi-pap 10/07/19 00:00 2.0 10/07/19 00:00 75 10/06/19 23:16 70 20 100 72 20 100 10/06/19 23:16 72 18 100 Nasal Cannula 2.0 28 70 18 100 10/06/19 20:09 63 20 100 65 20 100 10/06/19 20:09 70 18 100 Nasal Cannula 2.0 28 68 18 100 10/06/19 20:09 68 18 100 Nasal Cannula 2.0 28 10/06/19 20:00 2.0 10/06/19 20:00 74 10/06/19 20:00 Bi-pap 10/06/19 17:07 81 10/06/19 16:46 97.7 74 24 100/42 (61) 97 10/06/19 16:00 Bi-pap 10/06/19 16:00 97.6 70 25 96/41 (59) 100 10/06/19 16:00 14.0 10/06/19 15:28 65 20 99 62 20 100 10/06/19 12:13 68 20 98 65 18 99 10/06/19 12:07 14.0 10/06/19 12:00 Bi-pap 10/06/19 12:00 97.6 70 25 96/41 (59) 100 10/06/19 11:44 63 I&O Intake and Output 10/06/19 10/07/19 19:00 07:00 Intake Total 385.000 ml Output Total 500 ml 1600 ml Balance -500 ml -1215.000 ml Intake IV Total 385.000 ml Output Urine Total 500 ml 1600 ml # Bowel Movements 4 4 Dressing: dry Wound: clean Cardiovascular: RSR Respiratory: clear, decreased breath sounds Abdomen: soft, present bowel sounds Extremities: no cyanosis, other Laboratory Tests Test 10/07/19 04:25 10/07/19 07:40 White Blood Count 10.7 K/UL (4.8-10.8) # Red Blood Count 3.88 M/UL (4.20-5.40) L Hemoglobin 14.1 G/DL (12.0-16.0) Hematocrit 39.3 % (37.0-47.0) Mean Corpuscular Volume 101 FL (80-99) H Mean Corpuscular Hemoglobin 36.3 PG (27.0-31.0) H Mean Corpuscular Hemoglobin Concent 35.9 G/DL (32.0-36.0) Red Cell Distribution Width 12.9 % (11.6-14.8) Platelet Count 70 K/UL (150-450) L Mean Platelet Volume 8.2 FL (6.5-10.1) Neutrophils (%) (Auto) % (45.0-75.0) Lymphocytes (%) (Auto) % (20.0-45.0) Monocytes (%) (Auto) % (1.0-10.0) Eosinophils (%) (Auto) % (0.0-3.0) Basophils (%) (Auto) % (0.0-2.0) Differential Total Cells Counted 100 Neutrophils % (Manual) 94 % (45-75) H Lymphocytes % (Manual) 2 % (20-45) L Monocytes % (Manual) 4 % (1-10) Eosinophils % (Manual) 0 % (0-3) Basophils % (Manual) 0 % (0-2) Band Neutrophils 0 % (0-8) Platelet Estimate Decreased L Platelet Morphology Normal Macrocytosis 1+ Erythrocyte Sedimentation Rate 18 MM/HR (0-30) Prothrombin Time 16.4 SEC (9.30-11.50) H Prothromb Time International Ratio 1.6 (0.9-1.1) H Activated Partial Thromboplast Time 33 SEC (23-33) Sodium Level 139 MMOL/L (136-145) Potassium Level 2.9 MMOL/L (3.5-5.1) L Chloride Level 99 MMOL/L (98-107) Carbon Dioxide Level 35 MMOL/L (21-32) H Anion Gap 5 mmol/L (5-15) Blood Urea Nitrogen 30 mg/dL (7-18) H Creatinine 0.8 MG/DL (0.55-1.30) Estimat Glomerular Filtration Rate mL/min (>60) Glucose Level 110 MG/DL (74-106) H Lactic Acid Level 1.10 mmol/L (0.4-2.0) Calcium Level 8.1 MG/DL (8.5-10.1) L Total Bilirubin 2.5 MG/DL (0.2-1.0) H Direct Bilirubin 1.0 MG/DL (0.0-0.3) H Aspartate Amino Transf (AST/SGOT) 45 U/L (15-37) H Alanine Aminotransferase (ALT/SGPT) 41 U/L (12-78) Alkaline Phosphatase 72 U/L (46-116) C-Reactive Protein, Quantitative 15.5 mg/dL (0.00-0.90) H Total Protein 5.5 G/DL (6.4-8.2) L Albumin 2.4 G/DL (3.4-5.0) L Globulin 3.1 g/dL Albumin/Globulin Ratio 0.8 (1.0-2.7) L Amylase Level 17 U/L (25-115) L Lipase 70 U/L (73-393) L Arterial Blood pH 7.374 (7.350-7.450) Arterial Blood Partial Pressure CO2 58.5 mmHg (35.0-45.0) *H Arterial Blood Partial Pressure O2 72.5 mmHg (75.0-100.0) L Arterial Blood HCO3 33.4 mmol/L (22.0-26.0) H Arterial Blood Oxygen Saturation 93.9 % (95-100) L Arterial Blood Base Excess 6.2 (-2-2) H Norm Test Positive Plan Problems: (1) Abnormal LFTs (liver function tests) Assessment & Plan: lactic acidosis t bili elevated lft's abnormal US abd ordered trend labs okay for diet will follow with recs thank you (2) Decubitus skin ulcer Norris Davies Oct 07, 2019 11:05
[2019-10-07 12:00] VITALS: BP_SYST 101; BP_DIAS 42; BP_DIAS 48
--- NOTE | 2019-10-07 12:05 | NUR ---
NURSE NOTES: Called and informed Dr. Rincon that patient's blood sugar was 44 mg/dL, gave PRN D50W IVP as ordered, reassessed blood sugar 15 minutes later and showed 145 mg/dL, patient is NPO awaiting speech therapist evaluation. Dr. Rincon acknowledged and ordered to start patient on D5NS IV 50 ml/hr, discontinue IV fluids when patient is placed on PO diet. Also informed Dr. 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 Rincon acknowledged and stated Xarelto 15 mg PO daily is okay for therapy. Orders entered, noted, and carried out. Will continue to monitor patient.
[2019-10-07] MEDS ORDERED: D5NS 1,000 ML IV SCH ×2 (13:00)
--- NOTE | 2019-10-07 13:45 | Consultation ---
DATE OF CONSULTATION: 10/07/2019 INFECTIOUS DISEASES CONSULTATION CONSULTING PHYSICIAN: Dalila Zuniga M.D. REFERRING PHYSICIAN: Hakan Rincon M.D. REASON FOR CONSULTATION: Pneumonia. HISTORY OF PRESENTING ILLNESS: This is an 84-year-old lady with history of congestive heart failure, diabetes, dementia, sick sinus syndrome, status post pacemaker placement, who came in with shortness of breath. She was found to have congestive heart failure and possible pneumonia and an Infectious Diseases consultation has been obtained for antibiotics. PAST MEDICAL HISTORY: 1. History of diabetes. 2. Dementia. 3. Sick sinus syndrome, status post pacemaker placement. 4. Congestive heart failure. SOCIAL HISTORY: No history of smoking, alcohol, or drug use. FAMILY HISTORY: Unknown. REVIEW OF SYSTEMS: Unable to obtain currently. MEDICATIONS: As an inpatient, she is on midodrine, potassium, Protonix, vancomycin, Xarelto, docusate, spironolactone, Lasix, Zosyn, albuterol ipratropium, insulin, Tylenol, Dulcolax, milk of magnesia, nifedipine, and senna. ALLERGIES: No known drug allergies. PHYSICAL EXAMINATION: VITAL SIGNS: Temperature of 97.6, T-max of 99, pulse of 51, respiratory rate 16, blood pressure 108/64, O2 saturation of 95%. HEENT: Pupils equally reactive to light and accommodation. Mouth appears clean without thrush. NECK: Supple. No adenopathy. No JVD. CARDIOVASCULAR: Regular rate and rhythm. No murmurs. LUNGS: Clear to auscultation bilaterally. No crackles. No wheezes. ABDOMEN: Soft and nontender. No organomegaly. EXTREMITIES: No cyanosis, no clubbing, no edema. LABORATORY AND DIAGNOSTIC DATA: White count 10.7, hemoglobin 14.1, hematocrit 39.3, MCV 101, platelet count of 70, neutrophils of 94%. Sodium 139, potassium 2.9, chloride 99, bicarb 35, BUN 30, creatinine 0.8, glucose 110, and calcium 8.1. Total bilirubin 2.5, direct bilirubin 1. AST 45, ALT 41, alkaline phosphatase 72. Total protein 5.5. Albumin 2.4. Amylase of 17, lipase of 70. UA is showing 2 to 4 white cells. Blood cultures are negative. Chest x-ray is showing pulmonary edema. ASSESSMENT: This is an 84-year-old lady with history of diabetes, dementia, congestive heart failure, who comes in with shortness of breath and was found to have: 1. Possible community-acquired pneumonia. 2. Congestive heart failure. 3. Diabetes. PLAN: 1. Continue vancomycin and Zosyn for now. 2. We will order sputum for Gram stain and culture. 3. We will follow up cultures and adjust antibiotics accordingly. I would like to thank, Dr. Rincon for this consultation. Dalila Zuniga M.D. DR: ELIAS JOB#: [id number] CC: Hakan Rincon M.D.
--- NOTE | 2019-10-07 14:29 | NUR ---
ST NOTES: REFERRED FOR SWALLOW EVAL ACUTE POSS PNA (ALSO AT [facility] 09/24/19), ACUTE ON CHRONIC RESPIRATORY FAILURE REQUIRED BIPAP YESTERDAY AND EARLIER TODAY NOW ON 2 LITERS NC, 89-100 SP02 AND RR 18, PULMONARY CONGESTION AND EDEMA, MET ENCEPHALOPATHY, LOW BLOOD PRESSURE. 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 NO POLST BUT HAD ADVANCE DIRECTIVE NOT IN CHART. PER DTR, OK TO HAVE TEMPORARY NGT (12 MOZAMBICAN) FOR NOW. AT SNF ON A CARB CONTROLLED PUREED DIET AND THIN LIQUIDS BUT VERY SLOW INTAKE AND POOR INTAKE. NOW NPO SINCE YESTERDAY. REFUSED PO CRUSHED MEDS WITH APPLESAUCE WITH [facility] OPENER AND RN. PER RN, DIFFICULTY WITH NECTAR THICK WATER TSP, NEEDED TO GIVE ANOTHER TSP TO PUSH BACK LIQUID. ALERT BUT VERY TIRED AND VOICE IS WEAK AND BARELY AUDIBLE. HAD SOME TEETH BUT DIFFICULT TO SEE. DID NOT FOLLOW ORAL COMMANDS. INITIAL IMPRESSIONS: S/S OF A SIGNIFICANT OROPHARYNGEAL DYSPHAGIA WITH SOME RISK FOR SILENT ASPIRATION GIVEN H/O CVA AND DEMENTIA PROBLEMS COMPOUNDED BY CURRENT REFUSAL OF PO (POOR APPETITE SINCE 5 YEARS AGO), FATIGUE, POSSIBLE PNA AND RESP DISTRESS/FAILURE GIVEN TSP NECTAR THICK WATER, THE PATIENT HELD IT IN HER MOUTH AND DID NOT SWALLOW FOR 10 SECONDS WITH MILD DECREASE IN HYOLARYNGEAL EXCURSION. NO OVERT ASPIRATION, HAS SILENT ASPIRATION RISK PATIENT REFUSED FURTHER TRIALS DIFFERENT FOODS/LIQUIDS OFFERED TO HER. HIGH RISK FOR MALNUTRITION/DEHYDRATION RECOMMENDATIONS: CONSIDER INITIATING NONORAL FEEDINGS (PREFER 12 MOZAMBICAN SMALLER BORE SO IT DOESN'T AFFECT SWALLOW STUDY LATER). CONTINUE WITH ORAL CARE (NO APPARENT NEED FOR SUCTION) CONSIDER MODIFIED BARIUM SWALLOW STUDY WHEN PATIENT IS RECEPTIVE TO AT LEAST SOME PO TRIALS WITH [facility] OPENER AT BEDSIDE TO FURTHER ASSESS SWALLOW, DETERMINE SILENT ASP RISK/ETIOLOGY, AND ATTEMPT TRIAL TX TECHNIQUES D/W RN,FAMILIA, DR CARPENTER, HER DTR WHO AGREED TO NGT, AND RD (WHO WILL PUT IN FORMULA FOR TUBE FEEDINGS). EDUCATED/TRAINED RN IN POSTED ASPIRATION PRECAUTIONS WITH TUBE FEEDINGS RUNNING AND ORAL CARE NEEDS.
--- NOTE | 2019-10-07 14:36 | NUR ---
NURSE NOTES: Called and informed Dr. Rincon that patient has failed speech therapy swallow evaluation and per recommendations to insert NGT [address] Rincon acknowledged and ordered to insert NGT, speech therapist spoke with patient's daughter Olinda Gandara and per Ms. Olinda leigh to insert NGT. Dr. Rincon also ordered nutrition consult and. Also informed Dr. Rincon that patient's current blood pressure is 93/36, unable to swallow Midodrine 10 mg PO, current urine output 1000 ml, no s/sx of SOB patient is on 2LNC SpO2 98%. Dr. Rincon acknowledged and gave no new orders regarding blood pressure at this time. Noted. Will continue to monitor patient.
--- NOTE | 2019-10-07 14:46 | NUR ---
RD ASSESSMENT & RECOMMENDATIONS SEE CARE ACTIVITY FOR COMPLETE ASSESSMENT DAILY ESTIMATED NEEDS: Needs based on Underweight, wound 48.4kg 30-35 kcals/kg 9045-7064 total kcals 1.25-1.5 g protein/kg 61-73 g total protein Fluid per MD, on lasix NUTRITION DIAGNOSIS: Increased kcal and pro needs r/t wound healing and wasting as evidenced by sacral wound, eval pending, pt w/ generalized moderate to severe muscle and fat wasting. ENTERAL NUTRITION RECOMMENDATIONS: Glucerna 1.2 @55ml/hr x24 hrs to provide 1320ml, 1584 kcal, 73g pro, 1063ml free H2O - Obtain GI access, initiate Glucerna 1.2 @low rate 15ml/hr. - Advance as tolerated 10ml/hr q4-6 hrs to goal - Flush per MD. HOB over 30 degrees ADDITIONAL RECOMMENDATIONS: 1) Maintain calibrated bed scale wts 2) DIRECTOR OF MEDICARE EVAL PRIOR TO ORAL DIET -> consider non oral feeds if pt remains minimally alert 3) Wound care: w/ diet order add JERRY BID + Vit C 250,g daily 4) Continuous oral hygiene care-> pt appears to have severe dry mouth 5) TF recs as above 6) Rec added D5 w/ NPO status to prevent hypoglycemia
[2019-10-07] MEDS ORDERED: NS 275ml ONE (14:58)
[2019-10-07] MEDS ORDERED: NS 500ML ONE (14:58)
[2019-10-07] MEDS ORDERED: Tubing IV Secondary IV ONE (14:58)
--- NOTE | 2019-10-07 15:28 | NUR ---
NURSE NOTES:WOUND CARE NOTES:Pt presented on admission with multiple pressure injuries. DTPI sacrum that is partially opened at upper sacrum with an area of soft necrosis. Non-blanching erythema along borders and periwound. (L)8.5cm x (W)11cm. DTPI L heel. Base of wound is purple in center with surrounding maroon colour and is fluctuant. Periwound boggy but blanchable. (L)4cm x (W)6cm. DTPI R heel. Base of wound is maroon with marginal erythema and is fluctuant(L)4.5cm x (W)6cm. Both feet and toes are dusky and cool to touch . No other skin concerns noted.Cavilon Skin barrier applied to bony prominences of both shoulders ,both hips/trochanterics,and malleoli and each site mentioned covered with Optifoam drsgs to minimize pressure and friction. Tx.plan: Cleanse Sacral wound with Saline. Apply Therahoney. Cover with Optifoam drsg. Daily and prn. Apply Cavilon Skin Barrier to R and L hips/trochanteric areas. Cover each area with Optifoam drsg. Change every 7 days and prn. Apply Cavilon Skin Barrier to Both heels and malleoli. Cover each site with Optifoam drsgs. Change every 7 days and prn. APM/CARLA Mattress overlay. Reposition at least every 2hours or as tolerated. Off-load heels with pillow.
[2019-10-07 16:00] VITALS: BP 104/45
--- NOTE | 2019-10-07 16:34 | Diagnostic Imaging Report ---
Indication: Dyspnea Comparison: 10/06/2019 A single view chest radiograph was obtained. Findings: Prominent pulmonary vascularity and interstitium are demonstrated. There is evidence of a left pleural effusion once again. Groundglass opacities also present within both lungs. Left-sided pacemaker is noted. IMPRESSION: Worsening CHF
--- NOTE | 2019-10-07 17:00 | Diagnostic Imaging Report ---
Indication: Abdominal pain Technique: Grayscale and duplex Doppler imaging of the abdomen performed. Comparison: None Findings: The liver is heterogeneous with surface nodularity. Doppler interrogation of the main portal vein shows patency with hepatopedal, monophasic flow. There is no biliary ductal dilatation identified. Gallbladder is absent. CBD is 7.4 mm. Accounting for age and prior cholecystectomy this could be normal. Correlate clinically. There demonstrated part of the pancreas shows no definite abnormalities. Aorta is heavily calcified. Renal echogenicity is abnormally increased bilaterally. There is no hydronephrosis. Orozco catheter noted. There is a moderate right pleural effusion. IMPRESSION: Chronic liver disease/cirrhosis. Status post cholecystectomy Right pleural effusion Medical renal disease. Orozco catheter Atherosclerotic disease
--- NOTE | 2019-10-07 17:15 | NUR ---
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 98.9 HR 86 RR 32 B/P 121/82 BIPAP FIO2 40% NA 133 K 5.4 TROP 0.069 BNP>38552 AST 65 CXR=Worsening CHF IS: LASIX IV CEFEPIME IV IV BOLUS NS X 1 LITER VANCO IV ADMITTED TO STEP DOWN @ 0440 STEP DOWN STATUS DCP PENDING HOSPITAL STAY
[2019-10-07] MEDS: Midodrine 10mg tab ORAL SCH (18:00)
--- NOTE | 2019-10-07 18:15 | Diagnostic Imaging Report ---
Indication: Abdominal pain Comparison: None Single view of the abdomen obtained Findings: Bowel gas pattern is nonspecific. No mass, ectopic calcifications, or abnormal gas collections are identified. NG tube is present in good position. The bones are osteopenic. Impression: No acute findings
--- NOTE | 2019-10-07 19:00 | NUR ---
NURSE NOTES: Contacted Dr. Rincon, patient is on Xarelto 15 mg PO daily, patient has chronic left leg DVT, patient's platelet level today is 70,000. Inquired from Dr. Rincon if still okay to give Xarelto [address] Rincon acknowledged and stated still okay to give Xarelto 15 mg PO daily at this time. Noted.
--- NOTE | 2019-10-07 19:07 | NUR ---
NURSE NOTES: Received report from Paul Torres RN. Patient resting in bed. No signs of distress. On O2 2L via NC, tolerating well. NGT in place. Safety precautions in place. HOB elevated. Bed locked and lowest position. Call light within reach. Will continue to monitor.
[2019-10-07] MEDS ORDERED: GLIPIZIDE XL2.5 MG ORAL (19:10)
[2019-10-07] MEDS ORDERED: GLIPIZIDE ER2.5 MG PO (19:10)
[2019-10-07] MEDS ORDERED: MULTI-DELYN237 ML GT (19:10)
[2019-10-07] MEDS ORDERED: GLIPIZIDE5 MG ORAL (19:16)
--- NOTE | 2019-10-07 19:30 | NUR ---
HAND-OFF: Report given to ROSA Aguilera.
[2019-10-07 20:00] VITALS: BP 90/64
[2019-10-08] VITALS: BP 100/51
[2019-10-08] MEDS: Vancomycin 1 GM in NS 275 ML IVPB SCH (00:19)
[2019-10-08] MEDS: Albuterol/Ipratropium 3ml neb HHN SCH ×7 (00:47→23:05)
--- NOTE | 2019-10-08 01:20 | NUR ---
Spoke with Bud from [facility] to reschedule Zosyn IVPB. Explained to him that patient only has one line and has 2 medications due at the same time and they are incompatible and unable to start another IV. Waiting for call back. Waiting for med to be rescheduled. Will continue to monitor. Addendum: 10/08/19 at 0440 by Ale Carson RN NURSE NOTES: Spoke with Bud from [facility] to reschedule Zosyn IVPB. Explained to him that patient only has one line and has 2 medications due at the same time and they are incompatible and unable to start another IV. Waiting for call back. Waiting for med to be rescheduled. Will continue to monitor.
--- NOTE | 2019-10-08 02:33 | NUR ---
NURSE NOTES: Spoke with Lynsey from [facility] regarding reschedule of Zosyn IV. Wanted to verify if med can still be rescheduled. Pt still unable to insert another IV with 2 nurse attempts. Lynsey stated, she will let the pharmacist know. Will continue to monitor.
--- NOTE | 2019-10-08 02:38 | NUR ---
NURSE NOTES: Spoke with Lucretia from [facility]. Stated to pharmacist that 2 nurses are unable to start another IV to run Vanco and Zosyn that was due at midnight on 10/08/19. Pharmacist acknowledged and stated will reschedule Zosyn.
[2019-10-08] MEDS: Piperacillin/Tazobactam 3.375 GM in NS 110 ML IVPB SCH ×3 (03:29→19:37)
[2019-10-08 04:00] VITALS: BP 98/50
[2019-10-08] MEDS ORDERED: Albuterol/Ipratropium 3ml neb ONE (04:05)
--- NOTE | 2019-10-08 05:38 | General Progress Note ---
Assessment/Plan Problem List: (1) Afib ICD Codes: I48.91 - Unspecified atrial fibrillation SNOMED: 96755078 (2) CHF exacerbation ICD Codes: I50.9 - Heart failure, unspecified SNOMED: 225320641, [id number] Qualifiers: Qualified Codes: I50.9 - Heart failure, unspecified (3) Sepsis ICD Codes: A41.9 - Sepsis, unspecified organism SNOMED: 96263687 (4) PNA (pneumonia) ICD Codes: J18.9 - Pneumonia, unspecified organism SNOMED: 772028473 (5) Decubitus skin ulcer ICD Codes: L89.90 - Pressure ulcer of unspecified site, unspecified stage SNOMED: 133116326 (6) Abnormal LFTs (liver function tests) ICD Codes: R94.5 - Abnormal results of liver function studies SNOMED: 224572007 Status: stable, not improved, unchanged Assessment/Plan: cautious diuresis echo follow up cxr iv abx monitor abg bipap as needed resp rx swallow rx abd us picc line Subjective ROS Limited/Unobtainable: Yes Constitutional: Reports: malaise, weakness HEENT: Reports: no symptoms Cardiovascular: Reports: no symptoms Respiratory: Reports: cough Gastrointestinal/Abdominal: Reports: difficulty swallowing Genitourinary: Reports: no symptoms Neurologic/Psychiatric: Reports: pre-existing deficit Endocrine: Reports: no symptoms Hematologic/Lymphatic: Reports: no symptoms Allergies: Coded Allergies: No Known Allergies (Unverified , 10/05/19) All Systems: reviewed and negative except above Subjective no events. failed swallow eval. ngt in place. tolerating feeds. poor iv access. on multiple abx. Objective Last 24 Hour Vital Signs Date Time Temp Pulse Resp B/P (MAP) Pulse Ox O2 Delivery O2 Flow Rate FiO2 10/08/19 04:00 97.5 74 16 98/50 (66) 100 10/08/19 04:00 74 18 97 Nasal Cannula 2.0 28 71 18 96 10/08/19 04:00 2.0 10/08/19 03:25 74 10/08/19 00:00 76 18 100 Nasal Cannula 2.0 28 72 18 98 10/08/19 00:00 Bi-pap 10/08/19 00:00 97.5 72 12 100/51 (67) 100 10/08/19 00:00 2.0 10/07/19 23:46 81 10/07/19 21:30 98 Nasal Cannula 2.0 28 10/07/19 20:00 80 10/07/19 20:00 70 18 100 Nasal Cannula 2.0 28 69 18 100 10/07/19 20:00 2.0 10/07/19 20:00 Bi-pap 10/07/19 20:00 97.8 78 12 90/64 (73) 100 10/07/19 16:00 76 10/07/19 16:00 97.8 61 16 104/45 (64) 100 10/07/19 16:00 2.0 10/07/19 16:00 Bi-pap 10/07/19 15:22 72 18 100 Nasal Cannula 2.0 28 70 18 100 10/07/19 12:00 80 10/07/19 12:00 Bi-pap 10/07/19 12:00 97.9 80 16 101/48 (65) 100 10/07/19 12:00 2.0 10/07/19 11:14 64 18 96 Nasal Cannula 2.0 28 62 18 96 10/07/19 08:00 94 10/07/19 08:00 Bi-pap 10/07/19 08:00 2.0 10/07/19 07:08 51 16 97 Nasal Cannula 2.0 28 50 16 95 Intake and Output 10/07/19 10/08/19 19:00 07:00 Output Total 1000 ml Balance -1000 ml Output Urine Total 1000 ml # Bowel Movements 3 2 Laboratory Tests 10/07/19 07:40: Arterial Blood pH 7.374, Arterial Blood Partial Pressure CO2 58.5*H, Arterial Blood Partial Pressure O2 72.5L, Arterial Blood HCO3 33.4H, Arterial Blood Oxygen Saturation 93.9L, Arterial Blood Base Excess 6.2H, Norm Test Positive Height (Feet): 5 Height (Inches): 3.00 Weight (Pounds): 110 Objective General Appearance: WD/WN, lethargic, confused, cachetic, thin Neck: supple Cardiovascular: normal rate, regular rhythm Respiratory/Chest: lungs clear Abdomen: normal bowel sounds, non tender, soft, no organomegaly Edema: no edema noted Arm (L), no edema noted Arm (R), no edema noted Leg (L), no edema noted Leg (R), no edema noted Pedal (L), no edema noted Pedal (R), no edema noted Generalized Hakan Rincon MD Oct 08, 2019 05:38
[2019-10-08] MEDS ORDERED: Lidocaine 1% Plain 30 ml INJ SCH (05:45)
[2019-10-08] MEDS ORDERED: Heparin1,000 units/500ml Premix(Conc:2 units/ml) IV SCH (05:45)
[2019-10-08] MEDS: NovoLOG Insulin Flexpen SUBQ SCH ×4 (06:17→20:51)
[2019-10-08] MEDS ORDERED: Heparin1,000 units/500ml Premix(Conc:2 units/ml) ONE (07:00)
[2019-10-08] MEDS ORDERED: Lidocaine 1% Plain 30 ml INJ ONE (07:00)
--- NOTE | 2019-10-08 07:25 | NUR ---
HAND-OFF: Report given to ROSA Cooper. Patient in stable condition. Telephone consent for PICC given by patient's daughter, Olinda Gandara.
--- NOTE | 2019-10-08 07:26 | NUR ---
NURSE NOTES: Received pt, drowsy, arousable to touch and voice. Nods for yes or no. A/Ox3; primarily speaks Macedonian. 2LNC, Spo2 100%. Bilateral breath sounds are diminished. NGT running Glucerna 1.2@30ml/hr. RAC 18G patent and asymptomatic. FC draining well to gravity. Bilateral upper extremities edematous without pitting. PICC consent signed. Bed locked, alarmed and in lowest position. No signs of distress noted.
[2019-10-08 07:29] LABS: ALANINE AMINOTRANSFERASE 48 U/L (12-78); ALBUMIN 2.6 G/DL (3.4-5.0); ALBUMIN/GLOBULIN RATIO 0.7 (1.0-2.7); ALKALINE PHOSPHATASE 91 U/L (46-116); ANION GAP 6 mmol/L (5-15); ASPARTATE AMINO TRANSFERASE 45 U/L (15-37); BILIRUBIN,TOTAL 2.2 MG/DL (0.2-1.0); BLOOD UREA NITROGEN 26 mg/dL (7-18); CALCIUM 8.6 MG/DL (8.5-10.1); CARBON DIOXIDE 37 MMOL/L (21-32); CHLORIDE 100 MMOL/L (98-107); CREATININE 0.7 MG/DL (0.55-1.30); POTASSIUM 3.3 MMOL/L (3.5-5.1); SODIUM 143 MMOL/L (136-145)
[2019-10-08 07:57] LABS: BILIRUBIN,DIRECT 0.7 MG/DL (0.0-0.3)
--- NOTE | 2019-10-08 08:13 | NUR ---
NURSE NOTES: Received orders to give K-dur 40meq x1 via NGT per Dr. Rincon. Read back given and verified.
[2019-10-08] MEDS: Docusate 100mg cap ORAL SCH (08:28)
[2019-10-08] MEDS: Pantoprazole Inj IVP SCH (08:28)
--- NOTE | 2019-10-08 08:29 | Pulmonology Progress Note ---
Assessment/Plan Assessment/Plan CHF pulmonary edema acute respiratory failure pulmonary congestion sepsis hypoxemia severe PCM PLAN care noted monitor fluids respiratory care acid base better antibiotics empiric and taper repeat imaging care noted impression, plan, and exam edited and reviewed in detail care discussed with RN Subjective ROS Limited/Unobtainable: Yes Allergies: Coded Allergies: No Known Allergies (Unverified , 10/05/19) Subjective care noted respiratory care reviewed on oxygen low flow weak Objective Last 24 Hour Vital Signs Date Time Temp Pulse Resp B/P (MAP) Pulse Ox O2 Delivery O2 Flow Rate FiO2 10/08/19 07:18 71 20 100 Nasal Cannula 2.0 28 70 20 100 10/08/19 07:06 100 Nasal Cannula 2.0 28 10/08/19 04:00 97.5 74 16 98/50 (66) 100 10/08/19 04:00 74 18 97 Nasal Cannula 2.0 28 71 18 96 10/08/19 04:00 Bi-pap 10/08/19 04:00 2.0 10/08/19 03:25 74 10/08/19 00:00 76 18 100 Nasal Cannula 2.0 28 72 18 98 10/08/19 00:00 Bi-pap 10/08/19 00:00 97.5 72 12 100/51 (67) 100 10/08/19 00:00 2.0 10/07/19 23:46 81 10/07/19 21:30 98 Nasal Cannula 2.0 28 10/07/19 20:00 80 10/07/19 20:00 70 18 100 Nasal Cannula 2.0 28 69 18 100 10/07/19 20:00 2.0 10/07/19 20:00 Bi-pap 10/07/19 20:00 97.8 78 12 90/64 (73) 100 10/07/19 16:00 76 10/07/19 16:00 97.8 61 16 104/45 (64) 100 10/07/19 16:00 2.0 10/07/19 16:00 Bi-pap 10/07/19 15:22 72 18 100 Nasal Cannula 2.0 28 70 18 100 10/07/19 12:00 80 10/07/19 12:00 Bi-pap 10/07/19 12:00 97.9 80 16 101/48 (65) 100 10/07/19 12:00 2.0 10/07/19 11:14 64 18 96 Nasal Cannula 2.0 28 62 18 96 Intake and Output 10/07/19 10/08/19 19:00 07:00 Intake Total 530.708 ml Output Total 1000 ml 800 ml Balance -1000 ml -269.292 ml Intake Free Water 50 ml IV Total 330.708 ml Tube Feeding 150 ml Output Urine Total 1000 ml 800 ml # Bowel Movements 3 3 Objective WDWN cachectic reduced breath sounds bilaterally with some rhonchi [id number] without MRG NABS nontender no HSM no CCE nonfocal reduced skin turgor reviewed and edited Microbiology Date/Time Source Procedure Growth Status 10/06/19 00:15 Blood Blood Culture - Preliminary NO GROWTH AFTER 48 HOURS Resulted 10/06/19 00:00 Blood Blood Culture - Preliminary NO GROWTH AFTER 48 HOURS Resulted Laboratory Tests 10/08/19 04:51: Sodium Level 143, Potassium Level 3.3L, Chloride Level 100, Carbon Dioxide Level 37H, Anion Gap 6, Blood Urea Nitrogen 26H, Creatinine 0.7, Estimat Glomerular Filtration Rate , Glucose Level 148H, Calcium Level 8.6, Total Bilirubin 2.2H, Direct Bilirubin 0.7H, Aspartate Amino Transf (AST/SGOT) 45H, Alanine Aminotransferase (ALT/SGPT) 48, Alkaline Phosphatase 91, Total Protein 6.2L, Albumin 2.6L, Globulin 3.6, Albumin/Globulin Ratio 0.7L Current Medications Medications (Trade) Dose Ordered Sig/Zach Route PRN Reason Start Time Stop Time Status Last Admin Dose Admin Acetaminophen (Tylenol) 650 mg Q4H PRN ORAL Mild Pain/Temp > 100.5 10/06/19 06:30 11/05/19 06:29 Albuterol/ Ipratropium (Albuterol/ Ipratropium) 3 ml Q4HRT HHN 10/06/19 07:00 10/11/19 06:59 10/08/19 07:06 Bisacodyl (Dulcolax) 10 mg DAILYPRN PRN RECTAL Constipation 10/06/19 06:30 11/05/19 06:29 Chlorhexidine Gluconate (Elayne-Hex 2%) 1 applic DAILY@2000 TOPIC 10/08/19 20:00 11/07/19 19:59 Dextrose (Dextrose 50%) 25 ml Q30M PRN IV Hypoglycemia 10/06/19 06:30 11/05/19 06:29 Dextrose (Dextrose 50%) 50 ml Q30M PRN IV Hypoglycemia 10/06/19 06:30 11/05/19 06:29 10/07/19 11:43 Docusate Sodium (Colace) 200 mg DAILY ORAL 10/06/19 09:00 11/05/19 08:59 10/06/19 08:57 Furosemide (Lasix) 40 mg DAILY IV 10/06/19 09:00 11/05/19 08:59 10/07/19 08:10 Heparin Sodium/ Sodium Chloride (Heparin 1000 units/500ml Premix) 1,000 unit ONCE IV 10/08/19 05:45 10/08/19 16:00 Insulin Aspart (NovoLOG) BEFORE MEALS AND HS SUBQ 10/06/19 06:30 11/05/19 06:29 10/08/19 06:17 Lidocaine HCl (Xylocaine 1% 30ml) 30 ml ONCE INJ 10/08/19 05:45 10/08/19 16:00 Magnesium Hydroxide (Mom) 30 ml DAILYPRN PRN ORAL Constipation 10/06/19 06:30 11/05/19 06:29 Midodrine (Pro-Amatine) 10 mg THREE TIMES A DAY ORAL 10/07/19 18:00 11/06/19 17:59 Nifedipine (Adalat) 10 mg Q8HR PRN ORAL SBP >170 10/06/19 06:30 11/05/19 06:29 Pantoprazole (Protonix) 40 mg DAILY IVP 10/08/19 09:00 11/07/19 08:59 Piperacillin Sod/ Tazobactam Sod 3.375 gm/Sodium Chloride 110 ml @ 27.5 mls/hr Q8H IVPB 10/08/19 03:00 10/15/19 02:59 10/08/19 03:29 Potassium Chloride (K-Dur) 40 meq ONCE ORAL 10/08/19 09:00 10/08/19 10:00 Rivaroxaban (Xarelto) 15 mg DAILY ORAL 10/08/19 09:00 11/07/19 08:59 Sennosides (Senokot) 8.6 mg DAILY PRN ORAL Constipation 10/06/19 06:30 11/05/19 06:29 Spironolactone (Aldactone) 50 mg DAILY ORAL 10/06/19 09:00 11/05/19 08:59 10/07/19 08:11 Vancomycin HCl (Vanco rx to dose) 1 ea DAILY PRN MISC Per rx protocol 10/06/19 06:30 11/05/19 06:29 Vancomycin HCl 1 gm/Sodium Chloride 275 ml @ 183.708 mls/hr Q24H IVPB 10/07/19 00:00 10/12/19 00:00 10/08/19 00:19 Mason Villanueva MD Oct 08, 2019 08:29
[2019-10-08] MEDS: Xarelto 15mg tab ORAL SCH (08:36)
[2019-10-08] MEDS: Spironolactone 50mg tab ORAL SCH (08:36)
[2019-10-08] MEDS: Midodrine 10mg tab ORAL SCH ×3 (08:36→17:51)
--- NOTE | 2019-10-08 09:20 | Infectious Diseases Prog Note ---
Assessment/Plan Assessment/Plan A; 1. Possible community-acquired pneumonia. 2. Congestive heart failure. 3. Diabetes. 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 Cirrhosis 6. Anemia 7. Thrombocytopenia PLAN: 1. Continue vancomycin and Zosyn for now. 2. We will follow up cultures and adjust antibiotics accordingly Subjective ROS Limited/Unobtainable: Yes Constitutional: Denies: fever Allergies: Coded Allergies: No Known Allergies (Unverified , 10/05/19) Objective Vital Signs Last 24 Hour Vital Signs Date Time Temp Pulse Resp B/P (MAP) Pulse Ox O2 Delivery O2 Flow Rate FiO2 10/08/19 07:18 71 20 100 Nasal Cannula 2.0 28 70 20 100 10/08/19 07:06 100 Nasal Cannula 2.0 28 10/08/19 04:00 97.5 74 16 98/50 (66) 100 10/08/19 04:00 74 18 97 Nasal Cannula 2.0 28 71 18 96 10/08/19 04:00 Bi-pap 10/08/19 04:00 2.0 10/08/19 03:25 74 10/08/19 00:00 76 18 100 Nasal Cannula 2.0 28 72 18 98 10/08/19 00:00 Bi-pap 10/08/19 00:00 97.5 72 12 100/51 (67) 100 10/08/19 00:00 2.0 10/07/19 23:46 81 10/07/19 21:30 98 Nasal Cannula 2.0 28 10/07/19 20:00 80 10/07/19 20:00 70 18 100 Nasal Cannula 2.0 28 69 18 100 10/07/19 20:00 2.0 10/07/19 20:00 Bi-pap 10/07/19 20:00 97.8 78 12 90/64 (73) 100 10/07/19 16:00 76 10/07/19 16:00 97.8 61 16 104/45 (64) 100 10/07/19 16:00 2.0 10/07/19 16:00 Bi-pap 10/07/19 15:22 72 18 100 Nasal Cannula 2.0 28 70 18 100 10/07/19 12:00 80 10/07/19 12:00 Bi-pap 10/07/19 12:00 97.9 80 16 101/48 (65) 100 10/07/19 12:00 2.0 10/07/19 11:14 64 18 96 Nasal Cannula 2.0 28 62 18 96 Height (Feet): 5 Height (Inches): 3.00 Weight (Pounds): 110 General Appearance: cachetic HEENT: other - dry mouth Respiratory/Chest: lungs clear Cardiovascular: normal rate Abdomen: soft, non tender, other - NG tube feeding Extremities: no edema Skin: other - left eye bruise, icterus Neurologic/Psychiatric: alert, responsive Microbiology Date/Time Source Procedure Growth Status 10/06/19 00:15 Blood Blood Culture - Preliminary NO GROWTH AFTER 48 HOURS Resulted 10/06/19 00:00 Blood Blood Culture - Preliminary NO GROWTH AFTER 48 HOURS Resulted 10/06/19 00:00 Nasal Nares MRSA Culture - Final NO METHICILLIN RESISTANT STAPH AUREUS... Complete 10/06/19 00:00 Rectum VRE Culture - Final Enterococcus Faecium - Vre Complete 10/06/19 00:00 Rectum - Final NO CARBAPENEM-RESISTANT ENTEROBACTERI... Complete Laboratory Tests Test 10/08/19 04:51 Sodium Level 143 MMOL/L (136-145) Potassium Level 3.3 MMOL/L (3.5-5.1) L Chloride Level 100 MMOL/L (98-107) Carbon Dioxide Level 37 MMOL/L (21-32) H Anion Gap 6 mmol/L (5-15) Blood Urea Nitrogen 26 mg/dL (7-18) H Creatinine 0.7 MG/DL (0.55-1.30) Estimat Glomerular Filtration Rate mL/min (>60) Glucose Level 148 MG/DL (74-106) H Calcium Level 8.6 MG/DL (8.5-10.1) Total Bilirubin 2.2 MG/DL (0.2-1.0) H Direct Bilirubin 0.7 MG/DL (0.0-0.3) H Aspartate Amino Transf (AST/SGOT) 45 U/L (15-37) H Alanine Aminotransferase (ALT/SGPT) 48 U/L (12-78) Alkaline Phosphatase 91 U/L (46-116) Total Protein 6.2 G/DL (6.4-8.2) L Albumin 2.6 G/DL (3.4-5.0) L Globulin 3.6 g/dL Albumin/Globulin Ratio 0.7 (1.0-2.7) L Current Medications Medications (Trade) Dose Ordered Sig/Zach Route PRN Reason Start Time Stop Time Status Last Admin Dose Admin Acetaminophen (Tylenol) 650 mg Q4H PRN ORAL Mild Pain/Temp > 100.5 10/06/19 06:30 11/05/19 06:29 Albuterol/ Ipratropium (Albuterol/ Ipratropium) 3 ml Q4HRT HHN 10/06/19 07:00 10/11/19 06:59 10/08/19 07:06 Bisacodyl (Dulcolax) 10 mg DAILYPRN PRN RECTAL Constipation 10/06/19 06:30 11/05/19 06:29 Chlorhexidine Gluconate (Elayne-Hex 2%) 1 applic DAILY@2000 TOPIC 10/08/19 20:00 11/07/19 19:59 Dextrose (Dextrose 50%) 25 ml Q30M PRN IV Hypoglycemia 10/06/19 06:30 11/05/19 06:29 Dextrose (Dextrose 50%) 50 ml Q30M PRN IV Hypoglycemia 10/06/19 06:30 11/05/19 06:29 10/07/19 11:43 Docusate Sodium (Colace) 200 mg DAILY ORAL 10/06/19 09:00 11/05/19 08:59 10/08/19 08:28 Furosemide (Lasix) 40 mg DAILY IV 10/06/19 09:00 11/05/19 08:59 10/08/19 08:36 Heparin Sodium/ Sodium Chloride (Heparin 1000 units/500ml Premix) 1,000 unit ONCE IV 10/08/19 05:45 10/08/19 16:00 Insulin Aspart (NovoLOG) BEFORE MEALS AND HS SUBQ 10/06/19 06:30 11/05/19 06:29 10/08/19 06:17 Lidocaine HCl (Xylocaine 1% 30ml) 30 ml ONCE INJ 10/08/19 05:45 10/08/19 16:00 Magnesium Hydroxide (Mom) 30 ml DAILYPRN PRN ORAL Constipation 10/06/19 06:30 11/05/19 06:29 Midodrine (Pro-Amatine) 10 mg THREE TIMES A DAY ORAL 10/07/19 18:00 11/06/19 17:59 10/08/19 08:36 Nifedipine (Adalat) 10 mg Q8HR PRN ORAL SBP >170 10/06/19 06:30 11/05/19 06:29 Pantoprazole (Protonix) 40 mg DAILY IVP 10/08/19 09:00 11/07/19 08:59 10/08/19 08:28 Piperacillin Sod/ Tazobactam Sod 3.375 gm/Sodium Chloride 110 ml @ 27.5 mls/hr Q8H IVPB 10/08/19 03:00 10/15/19 02:59 10/08/19 03:29 Potassium Chloride (K-Dur) 40 meq ONCE ORAL 10/08/19 09:00 10/08/19 10:00 10/08/19 08:35 Rivaroxaban (Xarelto) 15 mg DAILY ORAL 10/08/19 09:00 11/07/19 08:59 10/08/19 08:36 Sennosides (Senokot) 8.6 mg DAILY PRN ORAL Constipation 10/06/19 06:30 11/05/19 06:29 Spironolactone (Aldactone) 50 mg DAILY ORAL 10/06/19 09:00 11/05/19 08:59 10/08/19 08:36 Vancomycin HCl (Vanco rx to dose) 1 ea DAILY PRN MISC Per rx protocol 10/06/19 06:30 11/05/19 06:29 Vancomycin HCl 1 gm/Sodium Chloride 275 ml @ 183.708 mls/hr Q24H IVPB 10/07/19 00:00 10/12/19 00:00 10/08/19 00:19 Jayme Hay MD Oct 08, 2019 09:20
--- NOTE | 2019-10-08 10:42 | Diagnostic Imaging Report ---
Indication:Leg pain and swelling Technique: Grayscale and duplex Doppler imaging of the veins in both lower extremities performed in real time utilizing compression and augmentation. Comparison: None Findings: Duplex Doppler interrogation of the veins in both lower extremity is performed from the common femoral vein to the popliteal vein. Normal venous compressibility demonstrated throughout on the right. No thrombus identified. Waveform analysis shows good respiratory phasicity and augmentation. On the left side, there is partial noncompressibility of the left common femoral vein probably due to mild nonocclusive wall adherent thrombus. This is probably due to an old DVT. No evidence of acute thrombosis. IMPRESSION: No evidence of acute deep venous thrombosis involving the lower extremities. 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
[2019-10-08 12:00] VITALS: BP 93/49
--- NOTE | 2019-10-08 12:24 | NUR ---
ST NOTES: SWALLOW STATUS: PATIENT IS MORE ALERT BUT STILL VERY TIRED (PER ROLO LEE CARDIAC PROBLEMS MAKE HER TIRED AND WEAK). RESP RATE AT 18-20, Fi02 28%, SP02 66 AT TIMES WITH 2 LITERS NC. TOLERATED TSP OF NECTAR THICK LIQUID WATER X2 TOOK 5-7 SEC PRIOR TO SWALLOW, FAIR TO WEAK HYOLARYNGEAL EXCURSION, NO ORAL RESIDUE AND NO OVERT ASPIRATION. VITALS STABLE GIVEN PUREED TSP X2 APPEARED TO CHEW AND SLOWLY PUSHED BACK AND SWALLOWED AFTER 10-15 SEC NO ORAL RESIDUE NOR OVERT ASPIRATION. NO SIGNIFICANT CHANGE IN VITAL SIGNS. WILL NOD "NO" WHEN ASKED IF SHE WANTS MORE BUT WHEN IT IS STILL OFFERED TO HER, SHE WILL TAKE IT. SPEECH/VOICE STATUS: APHONIC AND NOT ABLE TO MAKE A VOICE NOR VOWEL TO IMITATION. VERY WEAK COUGH W/O VOICING. PLAN: CONTINUE WITH NGT FEEDINGS FOR NOW PRIMARY MODE OF NUTRITION/HYDRATION INITIATE LIQUIFIED PUREED LIKE NECTAR THICK SOUP CONSISTENCY TSP ONLY TOLERATED FOR ORAL GRATIFICATION WITH POSTED ASP PRECAUTIONS AND ONE TO ONE FEEDING. SEND HIGH HEAVEN SUP (GLUCERNA FORMULA PER RD) CONSIDER CALORIE COUNT BUT UNLIKELY TO MEET NUTRITION/HYDRATION NEEDS AND MAY NEED LONGER TERM NONORAL FEEDINGS ONLY IF PATIENT/FAMILY RECEPTIVE. CONSIDER MOD BARIUM SWALLOW STUDY TO FURTHER ASSESS SWALLOW, DETERMINE SILENT ASP RISK/ETIOLOGY, AND ATTEMPT TRIAL TX TECHNIQUES. 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
--- NOTE | 2019-10-08 13:20 | Surgery Progress Note ---
Surgery Progress Note Subjective Additional Comments no acute events labs improved exam stable imaging noted Objective Last 24 Hour Vital Signs Date Time Temp Pulse Resp B/P (MAP) Pulse Ox O2 Delivery O2 Flow Rate FiO2 10/08/19 12:00 2.0 10/08/19 12:00 97.0 70 16 93/49 (64) 100 10/08/19 12:00 Nasal Cannula 2.0 10/08/19 11:10 65 20 100 Nasal Cannula 2.0 28 67 20 100 10/08/19 08:00 2.0 10/08/19 08:00 72 10/08/19 08:00 Nasal Cannula 2.0 10/08/19 07:18 71 20 100 Nasal Cannula 2.0 28 70 20 100 10/08/19 07:06 100 Nasal Cannula 2.0 28 10/08/19 04:00 97.5 74 16 98/50 (66) 100 10/08/19 04:00 74 18 97 Nasal Cannula 2.0 28 71 18 96 10/08/19 04:00 Bi-pap 10/08/19 04:00 2.0 10/08/19 03:25 74 10/08/19 00:00 76 18 100 Nasal Cannula 2.0 28 72 18 98 10/08/19 00:00 Bi-pap 10/08/19 00:00 97.5 72 12 100/51 (67) 100 10/08/19 00:00 2.0 10/07/19 23:46 81 10/07/19 21:30 98 Nasal Cannula 2.0 28 10/07/19 20:00 80 10/07/19 20:00 70 18 100 Nasal Cannula 2.0 28 69 18 100 10/07/19 20:00 2.0 10/07/19 20:00 Bi-pap 10/07/19 20:00 97.8 78 12 90/64 (73) 100 10/07/19 16:00 76 10/07/19 16:00 97.8 61 16 104/45 (64) 100 10/07/19 16:00 2.0 10/07/19 16:00 Bi-pap 10/07/19 15:22 72 18 100 Nasal Cannula 2.0 28 70 18 100 I&O Intake and Output 10/07/19 10/08/19 19:00 07:00 Intake Total 620.708 ml Output Total 1000 ml 800 ml Balance -1000 ml -179.292 ml Intake Free Water 110 ml IV Total 330.708 ml Tube Feeding 180 ml Output Urine Total 1000 ml 800 ml # Bowel Movements 3 3 Dressing: other Wound: other Drains: other Cardiovascular: RSR Respiratory: decreased breath sounds Abdomen: soft, present bowel sounds Extremities: no edema, no tenderness, no cyanosis, other Laboratory Tests Test 10/08/19 04:51 Sodium Level 143 MMOL/L (136-145) Potassium Level 3.3 MMOL/L (3.5-5.1) L Chloride Level 100 MMOL/L (98-107) Carbon Dioxide Level 37 MMOL/L (21-32) H Anion Gap 6 mmol/L (5-15) Blood Urea Nitrogen 26 mg/dL (7-18) H Creatinine 0.7 MG/DL (0.55-1.30) Estimat Glomerular Filtration Rate mL/min (>60) Glucose Level 148 MG/DL (74-106) H Calcium Level 8.6 MG/DL (8.5-10.1) Total Bilirubin 2.2 MG/DL (0.2-1.0) H Direct Bilirubin 0.7 MG/DL (0.0-0.3) H Aspartate Amino Transf (AST/SGOT) 45 U/L (15-37) H Alanine Aminotransferase (ALT/SGPT) 48 U/L (12-78) Alkaline Phosphatase 91 U/L (46-116) Total Protein 6.2 G/DL (6.4-8.2) L Albumin 2.6 G/DL (3.4-5.0) L Globulin 3.6 g/dL Albumin/Globulin Ratio 0.7 (1.0-2.7) L Plan Problems: (1) Abnormal LFTs (liver function tests) Assessment & Plan: lactic acidosis t bili elevated lft's abnormal The liver is heterogeneous with surface nodularity. Doppler interrogation of the main portal vein shows patency with hepatopedal, monophasic flow. There is no biliary ductal dilatation identified. Gallbladder is absent. CBD is 7.4 mm. Accounting for age and prior cholecystectomy this could be normal. Correlate clinically. There demonstrated part of the pancreas shows no definite abnormalities. Aorta is heavily calcified. Renal echogenicity is abnormally increased bilaterally. There is no hydronephrosis. Orozco catheter noted. There is a moderate right pleural effusion. IMPRESSION: Chronic liver disease/cirrhosis. Status post cholecystectomy Right pleural effusion Medical renal disease. Orozco catheter Atherosclerotic disease trend labs okay for diet will follow with recs thank you (2) Decubitus skin ulcer Assessment & Plan: Patient had an evaluation of stage III sacral decubitus ulcer full-thickness breakdown around the area of mid sacrum. Open wound approximately 5 cm x 4 cm with no signs of active infection. Periwound erythema mild. No fluctuance. No drainage. No foul odor. Apply Thera honey followed by foam dressing daily and as needed saturation. Turn every 2 hours. Air soft mattress. Will follow with recommendations. Thank you for let me participate in patient's care Norris Davies Oct 08, 2019 13:20
--- NOTE | 2019-10-08 15:41 | NUR ---
RADIOLOGY NOTE: RIGHT UPPER PICC LINE PLACEMENT BY DR. KRISTIE MOCTEZUMA AT 1445 HRS. FA
--- NOTE | 2019-10-08 15:50 | NUR ---
NURSE NOTES: PICC placed on right upper arm, dressing intact with biopatch. O.K. to use PICC per Dr. Liu.
--- NOTE | 2019-10-08 16:11 | Diagnostic Imaging Report ---
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 The right upper extremity was prepped with alcohol. All elements of maximal sterile barrier technique were followed including usage of a cap, mask, sterile gown, sterile gloves, hand hygiene and a large sterile sheet. Sonographic evaluation of the upper extremity was performed demonstrating a patent and compressible basilic vein. Access was obtained under real-time ultrasound guidance (with utilization of sterile gel and sterile probe cover) and digital image was saved and archived. An .018 wire was introduced. Needle exchanged for a 5 Colombian peel-away sheath. Measurements were obtained. A 5 [place]ian dual-lumen Power PICC line catheter was cut to 35 cm and introduced over the wire. Peel-away sheath and wire were removed.Catheter was secured to the skin using 2-0 Prolene suture. Both ports aspirate and flush easily. Post procedure chest x-ray demonstrates good position of the PICC line catheter within the SVC. Total fluoroscopic time: seconds. Impression: Successful placement of an upper extremity PICC line catheter
--- NOTE | 2019-10-08 19:20 | NUR ---
NURSE NOTES: Pt report received from catherine Preez RN SDU ICU. pt is alert and oriented times 1. pt is on surveillance system monitor showing V pace with no abnormalities. pt is on 2 L NC sating at 98%, no acute resp distress noted. pt bed is low, locked, armed, side rails up times 3, call light within easy reach. will follow plan of care. family member nehemiah by bed side.
[2019-10-08] MEDS: Dyna-Hex 2% Top Sol 2oz TOPIC SCH (19:38)
[2019-10-08 20:00] VITALS: BP 89/52
--- NOTE | 2019-10-08 20:28 | NUR ---
NURSE NOTES: spoke to MD sanchez via Telephone about Pt being Hypotensive (please refer to Q4 vitals). is aware of pt having low blood pressure. no new orders.
--- NOTE | 2019-10-08 20:30 | NUR ---
NURSE NOTES: Family member Karis Gandara spoke to MD Mckenzie Gonzales. they have both came to a decision via telephone that the PT is now DNR/DNI. Charge nurse Jonathan LEE witnessed telephone conversation and Telephone order.
[2019-10-09] VITALS: BP 83/53
--- NOTE | 2019-10-09 00:06 | NUR ---
NURSE NOTES: spoke to Pharmacist Maya from [employer]. she reviewed current vanco trough level and current vanco med dosage. she stated to continue the same med dosage for now. will follow orders.
[2019-10-09] MEDS: Vancomycin 1 GM in NS 275 ML IVPB SCH (00:24)
[2019-10-09] MEDS: Albuterol/Ipratropium 3ml neb HHN SCH ×6 (03:28→23:00)
[2019-10-09] MEDS: Piperacillin/Tazobactam 3.375 GM in NS 110 ML IVPB SCH ×3 (03:35→18:19)
[2019-10-09] MEDS: NovoLOG Insulin Flexpen SUBQ SCH ×4 (05:35→20:08)
[2019-10-09 05:50] LABS: HEMOGLOBIN 13.7 G/DL (12.0-16.0); MEAN CORPUSCULAR VOLUME 103 FL (80-99); PLATELET COUNT 73 K/UL (150-450); RED CELL DISTRIBUTION WIDTH 13.4 % (11.6-14.8); WHITE BLOOD COUNT 7.5 K/UL (4.8-10.8)
--- NOTE | 2019-10-09 07:00 | NUR ---
NURSE NOTES: MD CARPENTER seen pt. signed POLST. POLST is in pts file/ binder.
--- NOTE | 2019-10-09 07:15 | NUR ---
HAND-OFF: Report given to Paul Blevins day shift RN SDU. Pt remains stable.
--- NOTE | 2019-10-09 07:32 | General Progress Note ---
Assessment/Plan Problem List: (1) Afib ICD Codes: I48.91 - Unspecified atrial fibrillation SNOMED: 61845154 (2) CHF exacerbation ICD Codes: I50.9 - Heart failure, unspecified SNOMED: 508796051, [id number] Qualifiers: Qualified Codes: I50.9 - Heart failure, unspecified (3) Sepsis ICD Codes: A41.9 - Sepsis, unspecified organism SNOMED: 84123013 (4) PNA (pneumonia) ICD Codes: J18.9 - Pneumonia, unspecified organism SNOMED: 017953847 (5) Decubitus skin ulcer ICD Codes: L89.90 - Pressure ulcer of unspecified site, unspecified stage SNOMED: 988953641 (6) Abnormal LFTs (liver function tests) ICD Codes: R94.5 - Abnormal results of liver function studies SNOMED: 164144802 Status: stable, not improved, unchanged Assessment/Plan: cautious diuresis monitor renal fxn echo with very poor ef follow up cxr iv abx monitor abg bipap as needed resp rx swallow rx/encourage po- feeds for now d/w dtr- agrees to dnr. conservative rx only Subjective ROS Limited/Unobtainable: No Constitutional: Reports: malaise, weakness HEENT: Reports: no symptoms Cardiovascular: Reports: no symptoms Respiratory: Reports: cough, shortness of breath Gastrointestinal/Abdominal: Reports: difficulty swallowing Genitourinary: Reports: no symptoms Neurologic/Psychiatric: Reports: pre-existing deficit Endocrine: Reports: no symptoms Hematologic/Lymphatic: Reports: no symptoms Allergies: Coded Allergies: No Known Allergies (Unverified , 10/05/19) All Systems: reviewed and negative except above Subjective no events. tolerating ngt feeds. passed swallow eval but minimal po intake/ refused. on iv abx. less congested and sob. Objective Last 24 Hour Vital Signs Date Time Temp Pulse Resp B/P (MAP) Pulse Ox O2 Delivery O2 Flow Rate FiO2 10/09/19 04:00 Nasal Cannula 2.0 10/09/19 04:00 71 10/09/19 04:00 2.0 10/09/19 03:28 76 16 98 Nasal Cannula 2.0 28 72 18 95 10/09/19 00:00 70 10/09/19 00:00 97.9 81 18 83/53 (63) 100 10/09/19 00:00 Nasal Cannula 2.0 10/09/19 00:00 2.0 10/08/19 23:05 75 18 98 Nasal Cannula 2.0 28 71 16 95 10/08/19 20:00 97.8 72 17 89/52 (64) 100 10/08/19 20:00 Nasal Cannula 2.0 10/08/19 20:00 77 10/08/19 20:00 2.0 10/08/19 19:32 95 Nasal Cannula 2.0 28 10/08/19 19:27 61 20 95 Nasal Cannula 2.0 28 56 18 92 10/08/19 16:00 80 10/08/19 16:00 2.0 10/08/19 16:00 Nasal Cannula 2.0 10/08/19 12:00 2.0 10/08/19 12:00 97.0 70 16 93/49 (64) 100 10/08/19 12:00 72 10/08/19 12:00 Nasal Cannula 2.0 10/08/19 11:10 65 20 100 Nasal Cannula 2.0 28 67 20 100 10/08/19 08:00 2.0 10/08/19 08:00 72 10/08/19 08:00 Nasal Cannula 2.0 Intake and Output 10/08/19 10/09/19 19:00 07:00 Intake Total 620.0 ml 1090.000 ml Output Total 1900 ml 500 ml Balance -1280.0 ml 590.000 ml Intake Free Water 120 ml 120 ml IV Total 110.0 ml 640.000 ml Tube Feeding 390 ml 330 ml Output Urine Total 1900 ml 500 ml # Bowel Movements 3 3 Laboratory Tests 10/08/19 23:00: Vancomycin Level Trough 12.7H 10/09/19 03:25: White Blood Count 7.5, Red Blood Count 3.80L, Hemoglobin 13.7, Hematocrit 39.0, Mean Corpuscular Volume 103H, Mean Corpuscular Hemoglobin 36.1H, Mean Corpuscular Hemoglobin Concent 35.3, Red Cell Distribution Width 13.4, Platelet Count 73L, Mean Platelet Volume 7.4, Neutrophils (%) (Auto) , Lymphocytes (%) ( Auto) , Monocytes (%) (Auto) , Eosinophils (%) (Auto) , Basophils (%) (Auto) , Magnesium Level 1.8 Height (Feet): 5 Height (Inches): 3.00 Weight (Pounds): 101 Objective General Appearance: WD/WN, lethargic, confused, cachetic, thin Neck: supple Cardiovascular: normal rate, regular rhythm Respiratory/Chest: lungs clear Abdomen: normal bowel sounds, non tender, soft, no organomegaly Edema: no edema noted Arm (L), no edema noted Arm (R), no edema noted Leg (L), no edema noted Leg (R), no edema noted Pedal (L), no edema noted Pedal (R), no edema noted Generalized Hakan Rincon MD Oct 09, 2019 07:32
[2019-10-09 07:56] LABS: ALANINE AMINOTRANSFERASE 53 U/L (12-78); ALBUMIN 2.4 G/DL (3.4-5.0); ALBUMIN/GLOBULIN RATIO 0.7 (1.0-2.7); ALKALINE PHOSPHATASE 97 U/L (46-116); ANION GAP 3 mmol/L (5-15); ASPARTATE AMINO TRANSFERASE 46 U/L (15-37); BILIRUBIN,TOTAL 1.8 MG/DL (0.2-1.0); BLOOD UREA NITROGEN 27 mg/dL (7-18); CALCIUM 8.6 MG/DL (8.5-10.1); CHLORIDE 102 MMOL/L (98-107); CREATININE 0.7 MG/DL (0.55-1.30); POTASSIUM 3.1 MMOL/L (3.5-5.1); SODIUM 146 MMOL/L (136-145)
[2019-10-09 07:57] LABS: CARBON DIOXIDE 41 MMOL/L (21-32)
[2019-10-09 08:00] VITALS: BP 87/50
[2019-10-09 08:00] LABS: BILIRUBIN,DIRECT 0.6 MG/DL (0.0-0.3)
[2019-10-09] MEDS: Pantoprazole Inj IVP SCH (08:07)
[2019-10-09] MEDS: Docusate 100mg cap ORAL SCH (08:08)
[2019-10-09] MEDS: Xarelto 15mg tab ORAL SCH (08:08)
[2019-10-09] MEDS: Midodrine 10mg tab ORAL SCH ×3 (08:08→17:03)
[2019-10-09] MEDS: Spironolactone 50mg tab ORAL SCH (08:09)
--- NOTE | 2019-10-09 09:00 | NUR ---
NURSE NOTES: Contacted and informed Dr. Rincon that patient's potassium level today is 3.1. Dr. Rincon acknowledged and ordered K-dur 30 mEq via NGT x 1. Orders entered, noted, and carried out. Will continue to monitor patient.
--- NOTE | 2019-10-09 10:05 | NUR ---
NURSE NOTES: Patient noted having eating 90% of [place] PO diet. Patient tolerated PO diet. Informed speech therapist, , per may discontinue NGT if patient tolerates 2-3 PO meals. Noted. Will continue to monitor patient.
--- NOTE | 2019-10-09 11:08 | NUR ---
NURSE NOTES: Patient noted with CO2 level of 41 from chemistry lab, patient is alert and oriented x3-4 with SpO2 of 97% on 2LNC, no SOB noted. Contacted Dr. Villanueva of lab values and assessment. Dr. Villanueva acknowledged and ordered ABG. Order entered and informed RT.
--- NOTE | 2019-10-09 11:44 | NUR ---
NURSE NOTES: Contacted and informed Dr. Villanueva of new ABG while patient is on 2LNC results. They are: pH 7.430, pCO2 59.1, pO2 108.7, HCO3 38.3, O2 saturation 97. Patient is currently on 2LNC with SpO2 of 95%, no SOB noted. Dr. Villanueva acknowledged and gave no new orders at this time. Will continue to monitor patient.
[2019-10-09 11:53] VITALS: BP 101/53
--- NOTE | 2019-10-09 12:13 | Infectious Diseases Prog Note ---
Assessment/Plan Assessment/Plan A; 1. Possible community-acquired pneumonia. 2. Congestive heart failure, systolic 3. Diabetes. 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 Cirrhosis 6. Anemia 7. Thrombocytopenia PLAN: 1. Discontinue vancomycin and continue Zosyn for now. 2. We will follow up cultures and adjust antibiotics accordingly Subjective ROS Limited/Unobtainable: Yes Constitutional: Reports: other - better appetite today Allergies: Coded Allergies: No Known Allergies (Unverified , 10/05/19) Objective Vital Signs Last 24 Hour Vital Signs Date Time Temp Pulse Resp B/P (MAP) Pulse Ox O2 Delivery O2 Flow Rate FiO2 10/09/19 11:53 97.3 73 18 101/53 (69) 100 10/09/19 10:49 74 20 100 Nasal Cannula 2.0 28 71 20 98 10/09/19 08:00 97.0 80 18 87/50 (62) 100 10/09/19 08:00 Nasal Cannula 2.0 10/09/19 08:00 2.0 10/09/19 07:47 74 10/09/19 07:45 72 20 99 Nasal Cannula 2.0 28 74 20 97 10/09/19 07:32 97 Nasal Cannula 2.0 28 10/09/19 04:00 Nasal Cannula 2.0 10/09/19 04:00 71 10/09/19 04:00 2.0 10/09/19 03:28 76 16 98 Nasal Cannula 2.0 28 72 18 95 10/09/19 00:00 70 10/09/19 00:00 97.9 81 18 83/53 (63) 100 10/09/19 00:00 Nasal Cannula 2.0 10/09/19 00:00 2.0 10/08/19 23:05 75 18 98 Nasal Cannula 2.0 28 71 16 95 10/08/19 20:00 97.8 72 17 89/52 (64) 100 10/08/19 20:00 Nasal Cannula 2.0 10/08/19 20:00 77 10/08/19 20:00 2.0 10/08/19 19:32 95 Nasal Cannula 2.0 28 10/08/19 19:27 61 20 95 Nasal Cannula 2.0 28 56 18 92 10/08/19 16:00 80 10/08/19 16:00 2.0 2/4/20 16:00 Nasal Cannula 2.0 Height (Feet): 5 Height (Inches): 3.00 Weight (Pounds): 101 General Appearance: no acute distress, cachetic HEENT: mucous membranes moist Respiratory/Chest: lungs clear Cardiovascular: normal rate Abdomen: soft, non tender Extremities: no edema Neurologic/Psychiatric: alert, responsive Musculoskeletal: atrophy Laboratory Tests Test 10/08/19 23:00 10/09/19 03:20 10/09/19 03:25 Vancomycin Level Trough 12.7 ug/mL (5.0-12.0) H Sodium Level 146 MMOL/L (136-145) H Potassium Level 3.1 MMOL/L (3.5-5.1) L Chloride Level 102 MMOL/L (98-107) Carbon Dioxide Level 41 MMOL/L (21-32) *H Anion Gap 3 mmol/L (5-15) L Blood Urea Nitrogen 27 mg/dL (7-18) H Creatinine 0.7 MG/DL (0.55-1.30) Estimat Glomerular Filtration Rate mL/min (>60) Glucose Level 142 MG/DL (74-106) H Calcium Level 8.6 MG/DL (8.5-10.1) Total Bilirubin 1.8 MG/DL (0.2-1.0) H Direct Bilirubin 0.6 MG/DL (0.0-0.3) H Aspartate Amino Transf (AST/SGOT) 46 U/L (15-37) H Alanine Aminotransferase (ALT/SGPT) 53 U/L (12-78) Alkaline Phosphatase 97 U/L (46-116) Total Protein 5.8 G/DL (6.4-8.2) L Albumin 2.4 G/DL (3.4-5.0) L Globulin 3.4 g/dL Albumin/Globulin Ratio 0.7 (1.0-2.7) L White Blood Count 7.5 K/UL (4.8-10.8) Red Blood Count 3.80 M/UL (4.20-5.40) L Hemoglobin 13.7 G/DL (12.0-16.0) Hematocrit 39.0 % (37.0-47.0) Mean Corpuscular Volume 103 FL (80-99) H Mean Corpuscular Hemoglobin 36.1 PG (27.0-31.0) H Mean Corpuscular Hemoglobin Concent 35.3 G/DL (32.0-36.0) Red Cell Distribution Width 13.4 % (11.6-14.8) Platelet Count 73 K/UL (150-450) L Mean Platelet Volume 7.4 FL (6.5-10.1) Neutrophils (%) (Auto) % (45.0-75.0) Lymphocytes (%) (Auto) % (20.0-45.0) Monocytes (%) (Auto) % (1.0-10.0) Eosinophils (%) (Auto) % (0.0-3.0) Basophils (%) (Auto) % (0.0-2.0) Magnesium Level 1.8 MG/DL (1.8-2.4) Current Medications Medications (Trade) Dose Ordered Sig/Zach Route PRN Reason Start Time Stop Time Status Last Admin Dose Admin Acetaminophen (Tylenol) 650 mg Q4H PRN ORAL Mild Pain/Temp > 100.5 10/06/19 06:30 11/05/19 06:29 Albuterol/ Ipratropium (Albuterol/ Ipratropium) 3 ml Q4HRT HHN 10/06/19 07:00 10/11/19 06:59 10/09/19 10:39 Bisacodyl (Dulcolax) 10 mg DAILYPRN PRN RECTAL Constipation 10/06/19 06:30 11/05/19 06:29 Chlorhexidine Gluconate (Elayne-Hex 2%) 1 applic DAILY@2000 TOPIC 10/08/19 20:00 11/07/19 19:59 10/08/19 19:38 Dextrose (Dextrose 50%) 25 ml Q30M PRN IV Hypoglycemia 10/06/19 06:30 11/05/19 06:29 Dextrose (Dextrose 50%) 50 ml Q30M PRN IV Hypoglycemia 10/06/19 06:30 11/05/19 06:29 10/07/19 11:43 Docusate Sodium (Colace) 200 mg DAILY ORAL 10/06/19 09:00 11/05/19 08:59 10/09/19 08:08 Furosemide (Lasix) 40 mg DAILY IV 10/06/19 09:00 11/05/19 08:59 10/09/19 08:09 Insulin Aspart (NovoLOG) BEFORE MEALS AND HS SUBQ 10/06/19 06:30 11/05/19 06:29 10/09/19 12:03 Magnesium Hydroxide (Mom) 30 ml DAILYPRN PRN ORAL Constipation 10/06/19 06:30 11/05/19 06:29 Midodrine (Pro-Amatine) 10 mg THREE TIMES A DAY ORAL 10/07/19 18:00 11/06/19 17:59 10/09/19 12:05 Nifedipine (Adalat) 10 mg Q8HR PRN ORAL SBP >170 10/06/19 06:30 11/05/19 06:29 Pantoprazole (Protonix) 40 mg DAILY IVP 10/08/19 09:00 11/07/19 08:59 10/09/19 08:07 Piperacillin Sod/ Tazobactam Sod 3.375 gm/Sodium Chloride 110 ml @ 27.5 mls/hr Q8H IVPB 10/08/19 03:00 10/15/19 02:59 10/09/19 12:01 Rivaroxaban (Xarelto) 15 mg DAILY ORAL 10/08/19 09:00 11/07/19 08:59 10/09/19 08:08 Sennosides (Senokot) 8.6 mg DAILY PRN ORAL Constipation 10/06/19 06:30 11/05/19 06:29 Spironolactone (Aldactone) 50 mg DAILY ORAL 10/06/19 09:00 11/05/19 08:59 10/09/19 08:09 Vancomycin HCl (Vanco rx to dose) 1 ea DAILY PRN MISC Per rx protocol 10/06/19 06:30 11/05/19 06:29 Vancomycin HCl 1 gm/Sodium Chloride 275 ml @ 183.708 mls/hr Q24H IVPB 10/07/19 00:00 10/12/19 00:00 10/09/19 00:24 Jayme Hay MD Oct 09, 2019 12:13
--- NOTE | 2019-10-09 12:30 | NUR ---
NURSE NOTES: Patient ate 90% of lunch PO meal. Tolerated meal. Patient is alert, on 2LNC SpO2 95%. Noted. Will continue to monitor patient.
--- NOTE | 2019-10-09 12:45 | NUR ---
NURSE NOTES: Dr. Raghav Hay seen and examined patient at bedside. Informed MD that we are unable to obtain sputum culture. MD acknowledged and ordered to discontinued sputum culture collection. Order discontinued. Will continue to monitor patient.
--- NOTE | 2019-10-09 12:55 | NUR ---
NURSE NOTES: Contacted and informed Dr. Rincon that per speech therapist if patient tolerated 2-3 PO meals, may discontinue NG-tube. Informed Dr. Rincon that patient tolerated and ate 90% of PO breakfast and lunch. Dr. Rincon acknowledged and ordered to discontinue NG-tube and tube feeding. Orders entered, noted, and carried out. Will continue to monitor patient.
--- NOTE | 2019-10-09 13:27 | NUR ---
ST NOTES: SWALLOW STATUS: PATIENT IS GETTING BETTER AND TOLERATING 90% OF TWO MEALS WITH FAMILY AND RN W/O OVERT ASPIRATION. WILL D/C NGT FOR NOW. NEW STAFF AND FAMILY AWARE OF POSTED ASPIRATION PRECAUTIONS. PLAN: CONTINUE WITH CURRENT LIQUIFIED PUREED LIKE NECTAR THICK SOUP CONSISTENCY FOR NOW WITH POSTED PRECAUTIONS.
--- NOTE | 2019-10-09 14:51 | NUR ---
NURSE NOTES: NG-tube discontinued at bedside as ordere. Tip is intact. Patient tolerated procedure, pt is on room air SpO2 97%. Daughter at bedside. Will continue to monitor patient.
--- NOTE | 2019-10-09 15:06 | Surgery Progress Note ---
Surgery Progress Note Subjective Additional Comments no acute events comfortable stable Objective Last 24 Hour Vital Signs Date Time Temp Pulse Resp B/P (MAP) Pulse Ox O2 Delivery O2 Flow Rate FiO2 10/09/19 12:00 2.0 10/09/19 12:00 Nasal Cannula 2.0 10/09/19 11:53 97.3 73 18 101/53 (69) 100 10/09/19 11:36 71 10/09/19 10:49 74 20 100 Nasal Cannula 2.0 28 71 20 98 10/09/19 08:00 97.0 80 18 87/50 (62) 100 10/09/19 08:00 Nasal Cannula 2.0 10/09/19 08:00 2.0 10/09/19 07:47 74 10/09/19 07:45 72 20 99 Nasal Cannula 2.0 28 74 20 97 10/09/19 07:32 97 Nasal Cannula 2.0 28 10/09/19 04:00 Nasal Cannula 2.0 10/09/19 04:00 71 10/09/19 04:00 2.0 10/09/19 03:28 76 16 98 Nasal Cannula 2.0 28 72 18 95 10/09/19 00:00 70 10/09/19 00:00 97.9 81 18 83/53 (63) 100 10/09/19 00:00 Nasal Cannula 2.0 10/09/19 00:00 2.0 10/08/19 23:05 75 18 98 Nasal Cannula 2.0 28 71 16 95 10/08/19 20:00 97.8 72 17 89/52 (64) 100 10/08/19 20:00 Nasal Cannula 2.0 10/08/19 20:00 77 10/08/19 20:00 2.0 10/08/19 19:32 95 Nasal Cannula 2.0 28 10/08/19 19:27 61 20 95 Nasal Cannula 2.0 28 56 18 92 10/08/19 16:00 80 10/08/19 16:00 2.0 10/08/19 16:00 Nasal Cannula 2.0 I&O Intake and Output 10/08/19 10/09/19 19:00 07:00 Intake Total 620.0 ml 1090.000 ml Output Total 1900 ml 500 ml Balance -1280.0 ml 590.000 ml Intake Free Water 120 ml 120 ml IV Total 110.0 ml 640.000 ml Tube Feeding 390 ml 330 ml Output Urine Total 1900 ml 500 ml # Bowel Movements 3 3 Dressing: other Wound: other Drains: other Cardiovascular: RSR Respiratory: decreased breath sounds Abdomen: soft, present bowel sounds Extremities: no cyanosis Laboratory Tests Test 10/08/19 23:00 10/09/19 03:20 10/09/19 03:25 10/09/19 11:55 Vancomycin Level Trough 12.7 ug/mL (5.0-12.0) H Sodium Level 146 MMOL/L (136-145) H Potassium Level 3.1 MMOL/L (3.5-5.1) L Chloride Level 102 MMOL/L (98-107) Carbon Dioxide Level 41 MMOL/L (21-32) *H Anion Gap 3 mmol/L (5-15) L Blood Urea Nitrogen 27 mg/dL (7-18) H Creatinine 0.7 MG/DL (0.55-1.30) Estimat Glomerular Filtration Rate mL/min (>60) Glucose Level 142 MG/DL (74-106) H Calcium Level 8.6 MG/DL (8.5-10.1) Total Bilirubin 1.8 MG/DL (0.2-1.0) H Direct Bilirubin 0.6 MG/DL (0.0-0.3) H Aspartate Amino Transf (AST/SGOT) 46 U/L (15-37) H Alanine Aminotransferase (ALT/SGPT) 53 U/L (12-78) Alkaline Phosphatase 97 U/L (46-116) Total Protein 5.8 G/DL (6.4-8.2) L Albumin 2.4 G/DL (3.4-5.0) L Globulin 3.4 g/dL Albumin/Globulin Ratio 0.7 (1.0-2.7) L White Blood Count 7.5 K/UL (4.8-10.8) Red Blood Count 3.80 M/UL (4.20-5.40) L Hemoglobin 13.7 G/DL (12.0-16.0) Hematocrit 39.0 % (37.0-47.0) Mean Corpuscular Volume 103 FL (80-99) H Mean Corpuscular Hemoglobin 36.1 PG (27.0-31.0) H Mean Corpuscular Hemoglobin Concent 35.3 G/DL (32.0-36.0) Red Cell Distribution Width 13.4 % (11.6-14.8) Platelet Count 73 K/UL (150-450) L Mean Platelet Volume 7.4 FL (6.5-10.1) Neutrophils (%) (Auto) % (45.0-75.0) Lymphocytes (%) (Auto) % (20.0-45.0) Monocytes (%) (Auto) % (1.0-10.0) Eosinophils (%) (Auto) % (0.0-3.0) Basophils (%) (Auto) % (0.0-2.0) Magnesium Level 1.8 MG/DL (1.8-2.4) Arterial Blood pH 7.430 (7.350-7.450) Arterial Blood Partial Pressure CO2 59.1 mmHg (35.0-45.0) *H Arterial Blood Partial Pressure O2 108.7 mmHg (75.0-100.0) H Arterial Blood HCO3 38.3 mmol/L (22.0-26.0) H Arterial Blood Oxygen Saturation 97.9 % (95-100) Arterial Blood Base Excess 11.5 (-2-2) *H Norm Test Positive Plan Problems: (1) Abnormal LFTs (liver function tests) Assessment & Plan: lactic acidosis t bili elevated lft's abnormal improving The liver is heterogeneous with surface nodularity. Doppler interrogation of the main portal vein shows patency with hepatopedal, monophasic flow. There is no biliary ductal dilatation identified. Gallbladder is absent. CBD is 7.4 mm. Accounting for age and prior cholecystectomy this could be normal. Correlate clinically. There demonstrated part of the pancreas shows no definite abnormalities. Aorta is heavily calcified. Renal echogenicity is abnormally increased bilaterally. There is no hydronephrosis. Orozco catheter noted. There is a moderate right pleural effusion. IMPRESSION: Chronic liver disease/cirrhosis. Status post cholecystectomy Right pleural effusion Medical renal disease. Orozco catheter Atherosclerotic disease trend labs okay for diet will follow with recs thank you (2) Decubitus skin ulcer Assessment & Plan: Patient had an evaluation of stage III sacral decubitus ulcer full-thickness breakdown around the area of mid sacrum. Open wound approximately 5 cm x 4 cm with no signs of active infection. Periwound erythema mild. No fluctuance. No drainage. No foul odor. Apply Thera honey followed by foam dressing daily and as needed saturation. Turn every 2 hours. Air soft mattress. Will follow with recommendations. Thank you for let me participate in patient's care Norris Davies Oct 09, 2019 15:06
[2019-10-09 16:00] VITALS: BP 85/52
--- NOTE | 2019-10-09 17:53 | NUR ---
NURSE NOTES: Patient states 8/10 leg pain on left leg, site with known chronic DVT per venous duplex results, MD aware of chronic DVT patient is on Xarelto 15 mg PO Daily. Site noted with no swelling, redness. Patient has no SOB, pt is on 2LNC SpO2 100%. Gave patient PRN Tylenol for pain. Patient also noted with x 1 red tinged sputum, no SOB noted. Contacted and informed Dr. Rincon of assessments. Dr. Rincon acknowledged and ordered to continue Tyelnol 650 mg PO Q4hr PRN for paint. Noted. Will continue to monitor patient.
--- NOTE | 2019-10-09 18:21 | Pulmonology Progress Note ---
Assessment/Plan Assessment/Plan Pulmonary Progress Note Assessment/Plan CHF pulmonary edema acute respiratory failure pulmonary congestion sepsis hypoxemia severe PCM PLAN no new issues care noted monitor fluids respiratory care acid base better antibiotics empiric and taper repeat imaging care noted impression, plan, and exam edited and reviewed in detail care discussed with RN Subjective ROS Limited/Unobtainable: Yes Allergies: Coded Allergies: No Known Allergies (Unverified , 10/05/19) Subjective care noted respiratory care reviewed on oxygen low flow weak Objective Vital Signs Noted Objective WDWN cachectic reduced breath sounds bilaterally with some rhonchi [id number] without MRG NABS nontender no HSM no CCE nonfocal reduced skin turgor reviewed and edited Microbiology Date/Time Source Procedure Growth Status 10/06/19 00:15 Blood Blood Culture - Preliminary NO GROWTH AFTER 48 HOURS Resulted 10/06/19 00:00 Blood Blood Culture - Preliminary NO GROWTH AFTER 48 HOURS Resulted Laboratory Tests 10/08/19 04:51: Sodium Level 143, Potassium Level 3.3L, Chloride Level 100, Carbon Dioxide Level 37H, Anion Gap 6, Blood Urea Nitrogen 26H, Creatinine 0.7, Estimat Glomerular Filtration Rate , Glucose Level 148H, Calcium Level 8.6, Total Bilirubin 2.2H, Direct Bilirubin 0.7H, Aspartate Amino Transf (AST/SGOT) 45H, Alanine Aminotransferase (ALT/SGPT) 48, Alkaline Phosphatase 91, Total Protein 6.2L, Albumin 2.6L, Globulin 3.6, Albumin/Globulin Ratio 0.7L Current Medications Medications (Trade) Dose Ordered Sig/Zach Route PRN Reason Start Time Stop Time Status Last Admin Dose Admin Acetaminophen (Tylenol) 650 mg Q4H PRN ORAL Mild Pain/Temp > 100.5 10/06/19 06:30 11/05/19 06:29 Albuterol/ Ipratropium (Albuterol/ Ipratropium) 3 ml Q4HRT HHN 10/06/19 07:00 10/11/19 06:59 10/08/19 07:06 Bisacodyl (Dulcolax) 10 mg DAILYPRN PRN RECTAL Constipation 10/06/19 06:30 11/05/19 06:29 Chlorhexidine Gluconate (Elayne-Hex 2%) 1 applic DAILY@2000 TOPIC 10/08/19 20:00 11/07/19 19:59 Dextrose (Dextrose 50%) 25 ml Q30M PRN IV Hypoglycemia 10/06/19 06:30 11/05/19 06:29 Dextrose (Dextrose 50%) 50 ml Q30M PRN IV Hypoglycemia 10/06/19 06:30 11/05/19 06:29 10/07/19 11:43 Docusate Sodium (Colace) 200 mg DAILY ORAL 10/06/19 09:00 11/05/19 08:59 10/06/19 08:57 Furosemide (Lasix) 40 mg DAILY IV 10/06/19 09:00 11/05/19 08:59 10/07/19 08:10 Heparin Sodium/ Sodium Chloride (Heparin 1000 units/500ml Premix) 1,000 unit ONCE IV 10/08/19 05:45 10/08/19 16:00 Insulin Aspart (NovoLOG) BEFORE MEALS AND HS SUBQ 10/06/19 06:30 11/05/19 06:29 10/08/19 06:17 Lidocaine HCl (Xylocaine 1% 30ml) 30 ml ONCE INJ 10/08/19 05:45 10/08/19 16:00 Magnesium Hydroxide (Mom) 30 ml DAILYPRN PRN ORAL Constipation 10/06/19 06:30 11/05/19 06:29 Midodrine (Pro-Amatine) 10 mg THREE TIMES A DAY ORAL 10/07/19 18:00 11/06/19 17:59 Nifedipine (Adalat) 10 mg Q8HR PRN ORAL SBP >170 10/06/19 06:30 11/05/19 06:29 Pantoprazole (Protonix) 40 mg DAILY IVP 10/08/19 09:00 11/07/19 08:59 Piperacillin Sod/ Tazobactam Sod 3.375 gm/Sodium Chloride 110 ml @ 27.5 mls/hr Q8H IVPB 10/08/19 03:00 10/15/19 02:59 10/08/19 03:29 Potassium Chloride (K-Dur) 40 meq ONCE ORAL 10/08/19 09:00 10/08/19 10:00 Rivaroxaban (Xarelto) 15 mg DAILY ORAL 10/08/19 09:00 11/07/19 08:59 Sennosides (Senokot) 8.6 mg DAILY PRN ORAL Constipation 10/06/19 06:30 11/05/19 06:29 Spironolactone (Aldactone) 50 mg DAILY ORAL 10/06/19 09:00 11/05/19 08:59 10/07/19 08:11 Vancomycin HCl (Vanco rx to dose) 1 ea DAILY PRN MISC Per rx protocol 10/06/19 06:30 11/05/19 06:29 Vancomycin HCl 1 gm/Sodium Chloride 275 ml @ 183.708 mls/hr Q24H IVPB 10/07/19 00:00 10/12/19 00:00 10/08/19 00:19 Subjective ROS Limited/Unobtainable: No Allergies: Coded Allergies: No Known Allergies (Unverified , 10/05/19) Objective Last 24 Hour Vital Signs Date Time Temp Pulse Resp B/P (MAP) Pulse Ox O2 Delivery O2 Flow Rate FiO2 10/09/19 16:32 76 18 100 Nasal Cannula 2.0 28 72 17 98 10/09/19 16:00 Nasal Cannula 2.0 10/09/19 16:00 74 10/09/19 16:00 2.0 10/09/19 12:00 2.0 10/09/19 12:00 Nasal Cannula 2.0 10/09/19 11:53 97.3 73 18 101/53 (69) 100 10/09/19 11:36 71 10/09/19 10:49 74 20 100 Nasal Cannula 2.0 28 71 20 98 10/09/19 08:00 97.0 80 18 87/50 (62) 100 10/09/19 08:00 Nasal Cannula 2.0 10/09/19 08:00 2.0 10/09/19 07:47 74 10/09/19 07:45 72 20 99 Nasal Cannula 2.0 28 74 20 97 10/09/19 07:32 97 Nasal Cannula 2.0 28 10/09/19 04:00 Nasal Cannula 2.0 10/09/19 04:00 71 10/09/19 04:00 2.0 10/09/19 03:28 76 16 98 Nasal Cannula 2.0 28 72 18 95 10/09/19 00:00 70 10/09/19 00:00 97.9 81 18 83/53 (63) 100 10/09/19 00:00 Nasal Cannula 2.0 10/09/19 00:00 2.0 10/08/19 23:05 75 18 98 Nasal Cannula 2.0 28 71 16 95 10/08/19 20:00 97.8 72 17 89/52 (64) 100 10/08/19 20:00 Nasal Cannula 2.0 10/08/19 20:00 77 10/08/19 20:00 2.0 10/08/19 19:32 95 Nasal Cannula 2.0 28 10/08/19 19:27 61 20 95 Nasal Cannula 2.0 28 56 18 92 Intake and Output 10/08/19 10/09/19 19:00 07:00 Intake Total 620.0 ml 1120.000 ml Output Total 1900 ml 500 ml Balance -1280.0 ml 620.000 ml Intake Free Water 120 ml 120 ml IV Total 110.0 ml 640.000 ml Tube Feeding 390 ml 360 ml Output Urine Total 1900 ml 500 ml # Bowel Movements 3 3 Laboratory Tests 10/08/19 23:00: Vancomycin Level Trough 12.7H 10/09/19 03:20: Sodium Level 146H, Potassium Level 3.1L, Chloride Level 102, Carbon Dioxide Level 41*H, Anion Gap 3L, Blood Urea Nitrogen 27H, Creatinine 0.7, Estimat Glomerular Filtration Rate , Glucose Level 142H, Calcium Level 8.6, Total Bilirubin 1.8H, Direct Bilirubin 0.6H, Aspartate Amino Transf (AST/SGOT) 46H, Alanine Aminotransferase (ALT/SGPT) 53, Alkaline Phosphatase 97, Total Protein 5.8L, Albumin 2.4L, Globulin 3.4, Albumin/Globulin Ratio 0.7L 10/09/19 03:25: White Blood Count 7.5, Red Blood Count 3.80L, Hemoglobin 13.7, Hematocrit 39.0, Mean Corpuscular Volume 103H, Mean Corpuscular Hemoglobin 36.1H, Mean Corpuscular Hemoglobin Concent 35.3, Red Cell Distribution Width 13.4, Platelet Count 73L, Mean Platelet Volume 7.4, Neutrophils (%) (Auto) , Lymphocytes (%) ( Auto) , Monocytes (%) (Auto) , Eosinophils (%) (Auto) , Basophils (%) (Auto) , Magnesium Level 1.8 10/09/19 11:55: Arterial Blood pH 7.430, Arterial Blood Partial Pressure CO2 59.1*H, Arterial Blood Partial Pressure O2 108.7H, Arterial Blood HCO3 38.3H, Arterial Blood Oxygen Saturation 97.9, Arterial Blood Base Excess 11.5*H, Norm Test Positive Current Medications Medications (Trade) Dose Ordered Sig/Zach Route PRN Reason Start Time Stop Time Status Last Admin Dose Admin Acetaminophen (Tylenol) 650 mg Q4H PRN ORAL Mild Pain/Temp > 100.5 10/06/19 06:30 11/05/19 06:29 10/09/19 17:04 Albuterol/ Ipratropium (Albuterol/ Ipratropium) 3 ml Q4HRT HHN 10/06/19 07:00 10/11/19 06:59 10/09/19 16:32 Bisacodyl (Dulcolax) 10 mg DAILYPRN PRN RECTAL Constipation 10/06/19 06:30 11/05/19 06:29 Chlorhexidine Gluconate (Elayne-Hex 2%) 1 applic DAILY@2000 TOPIC 10/08/19 20:00 11/07/19 19:59 10/08/19 19:38 Dextrose (Dextrose 50%) 25 ml Q30M PRN IV Hypoglycemia 10/06/19 06:30 11/05/19 06:29 Dextrose (Dextrose 50%) 50 ml Q30M PRN IV Hypoglycemia 10/06/19 06:30 11/05/19 06:29 10/07/19 11:43 Docusate Sodium (Colace) 200 mg DAILY ORAL 10/06/19 09:00 11/05/19 08:59 10/09/19 08:08 Furosemide (Lasix) 40 mg DAILY IV 10/06/19 09:00 11/05/19 08:59 10/09/19 08:09 Insulin Aspart (NovoLOG) BEFORE MEALS AND HS SUBQ 10/06/19 06:30 11/05/19 06:29 10/09/19 17:05 Magnesium Hydroxide (Mom) 30 ml DAILYPRN PRN ORAL Constipation 10/06/19 06:30 11/05/19 06:29 Midodrine (Pro-Amatine) 10 mg THREE TIMES A DAY ORAL 10/07/19 18:00 11/06/19 17:59 10/09/19 17:03 Nifedipine (Adalat) 10 mg Q8HR PRN ORAL SBP >170 10/06/19 06:30 11/05/19 06:29 Pantoprazole (Protonix) 40 mg DAILY IVP 10/08/19 09:00 11/07/19 08:59 10/09/19 08:07 Piperacillin Sod/ Tazobactam Sod 3.375 gm/Sodium Chloride 110 ml @ 27.5 mls/hr Q8H IVPB 10/08/19 03:00 10/15/19 02:59 10/09/19 18:19 Rivaroxaban (Xarelto) 15 mg DAILY ORAL 10/08/19 09:00 11/07/19 08:59 10/09/19 08:08 Sennosides (Senokot) 8.6 mg DAILY PRN ORAL Constipation 10/06/19 06:30 11/05/19 06:29 Spironolactone (Aldactone) 50 mg DAILY ORAL 10/06/19 09:00 11/05/19 08:59 10/09/19 08:09 Amrit Benavidez MD Oct 09, 2019 18:21
--- NOTE | 2019-10-09 19:22 | NUR ---
HAND-OFF: Report given to ROSA Llamas.
--- NOTE | 2019-10-09 19:23 | NUR ---
NURSE NOTES: received pt from Paul LEE., pt is AOx4 Welsh speaker but unable to speak it out. pt crump on 2L of NC O2sat is at 98%. no SOB noted and no Respiratory distress at this moment. pt states little discomfort on the left leg which Dr. Rincon aware of, will keep monitor pt and advised to pt to not move left leg. jackson cath is intact, patent, and drainng well with gravity. pt has PICC line and clean, dry, patent, and intact. bed at the lowest postiion, alaremd, and locked. call light within reach. will continue to monitor pt with plan of care.
[2019-10-09] MEDS: Dyna-Hex 2% Top Sol 2oz TOPIC SCH (20:08)
[2019-10-09 20:11] VITALS: BP 91/47
--- NOTE | 2019-10-09 23:30 | NUR ---
NURSE NOTES: changed right PICC line dressing with Sterile dressing. no s/s of infection, it is dry, clean, intact, and patent. call light within reach. no SOB noted.
[2019-10-10] MEDS: Piperacillin/Tazobactam 3.375 GM in NS 110 ML IVPB SCH ×3 (03:10→18:35)
[2019-10-10] MEDS: Albuterol/Ipratropium 3ml neb HHN SCH ×6 (03:27→23:05)
[2019-10-10] MEDS: NovoLOG Insulin Flexpen SUBQ SCH ×4 (05:30→21:00)
[2019-10-10 05:33] LABS: ALANINE AMINOTRANSFERASE 48 U/L (12-78); ALBUMIN 2.3 G/DL (3.4-5.0); ALBUMIN/GLOBULIN RATIO 0.7 (1.0-2.7); ALKALINE PHOSPHATASE 86 U/L (46-116); ASPARTATE AMINO TRANSFERASE 35 U/L (15-37); BLOOD UREA NITROGEN 19 mg/dL (7-18); CALCIUM 8.6 MG/DL (8.5-10.1); CHLORIDE 103 MMOL/L (98-107); CREATININE 0.5 MG/DL (0.55-1.30); POTASSIUM 3.2 MMOL/L (3.5-5.1); SODIUM 148 MMOL/L (136-145)
[2019-10-10 06:09] LABS: CARBON DIOXIDE > 45 MMOL/L (21-32)
[2019-10-10 06:26] LABS: BILIRUBIN,DIRECT 0.6 MG/DL (0.0-0.3)
--- NOTE | 2019-10-10 06:36 | NUR ---
NURSE NOTES: notified Dr. patel regarding Carbondioxide greater than 45. ABG stat order received. noted and carry on.
--- NOTE | 2019-10-10 06:43 | NUR ---
NURSE NOTES: aware regarding potassium 3.2 and received order. noted and will carry on
--- NOTE | 2019-10-10 07:37 | NUR ---
RESPIRATORY NOTE: ABG drawn and reported to Amrit LEE. Patent needs to be placed on BiPAP at this time however patient's daughter would like to feed her first. Will continue to monitor. RN notified.
--- NOTE | 2019-10-10 07:43 | NUR ---
HAND-OFF: Report given to Amrit LEE. pt is stable condition
[2019-10-10 08:00] VITALS: BP 94/52
[2019-10-10] MEDS: Midodrine 10mg tab ORAL SCH ×3 (08:42→18:35)
[2019-10-10] MEDS: Docusate 100mg cap ORAL SCH (08:43)
[2019-10-10] MEDS: Spironolactone 50mg tab ORAL SCH (08:43)
[2019-10-10] MEDS: Pantoprazole Inj IVP SCH (08:43)
--- NOTE | 2019-10-10 08:55 | Pulmonology Progress Note ---
Assessment/Plan Assessment/Plan CHF pulmonary edema acute respiratory failure pulmonary congestion sepsis hypoxemia severe PCM worsening hypercapnia PLAN care noted repeat ABG may need BIPAP follow up cxr and abg monitor fluids and keep negative respiratory care acid base better antibiotics noted monitor imaging care noted impression, plan, and exam edited and reviewed in detail care discussed with RN Subjective ROS Limited/Unobtainable: Yes Allergies: Coded Allergies: No Known Allergies (Unverified , 10/05/19) Subjective care noted respiratory care reviewed on oxygen low flow worsening co2 retention Objective Last 24 Hour Vital Signs Date Time Temp Pulse Resp B/P (MAP) Pulse Ox O2 Delivery O2 Flow Rate FiO2 10/10/19 07:37 69 18 100 Nasal Cannula 2.0 28 67 16 98 10/10/19 07:26 100 Nasal Cannula 2.0 28 10/10/19 04:00 2.0 10/10/19 04:00 Nasal Cannula 2.0 10/10/19 03:30 70 10/10/19 03:27 72 14 100 Nasal Cannula 2.0 28 71 14 100 10/10/19 00:00 Nasal Cannula 2.0 10/09/19 23:36 73 10/09/19 23:00 75 15 100 Nasal Cannula 2.0 28 74 14 99 10/09/19 20:11 97.7 70 16 91/47 (62) 100 10/09/19 20:00 2.0 10/09/19 20:00 Nasal Cannula 2.0 10/09/19 19:36 74 20 100 Nasal Cannula 2.0 28 71 18 100 10/09/19 19:35 100 Nasal Cannula 2.0 28 10/09/19 19:01 71 10/09/19 16:32 76 18 100 Nasal Cannula 2.0 28 72 17 98 10/09/19 16:00 Nasal Cannula 2.0 10/09/19 16:00 74 10/09/19 16:00 2.0 10/09/19 16:00 97.2 70 18 85/52 (63) 100 10/09/19 12:00 2.0 10/09/19 12:00 Nasal Cannula 2.0 10/09/19 11:53 97.3 73 18 101/53 (69) 100 10/09/19 11:36 71 10/09/19 10:49 74 20 100 Nasal Cannula 2.0 28 71 20 98 Intake and Output 10/09/19 10/10/19 19:00 07:00 Intake Total 390.0 ml 165.0 ml Output Total 1700 ml 310 ml Balance -1310.0 ml -145.0 ml Intake Free Water 100 ml IV Total 110.0 ml 165.0 ml Tube Feeding 180 ml Output Urine Total 1700 ml 310 ml # Bowel Movements 3 1 Objective WDWN cachectic reduced breath sounds bilaterally with some rhonchi [id number] without MRG NABS nontender no HSM no CCE nonfocal reduced skin turgor reviewed and edited Laboratory Tests 10/09/19 11:55: Arterial Blood pH 7.430, Arterial Blood Partial Pressure CO2 59.1*H, Arterial Blood Partial Pressure O2 108.7H, Arterial Blood HCO3 38.3H, Arterial Blood Oxygen Saturation 97.9, Arterial Blood Base Excess 11.5*H, Norm Test Positive 10/10/19 03:15: Sodium Level 148H, Potassium Level 3.2L, Chloride Level 103, Carbon Dioxide Level > 45*H, Blood Urea Nitrogen 19H, Creatinine 0.5L, Estimat Glomerular Filtration Rate , Glucose Level 113H, Calcium Level 8.6, Total Bilirubin 2.0H, Direct Bilirubin 0.6H, Aspartate Amino Transf (AST/SGOT) 35, Alanine Aminotransferase (ALT/SGPT) 48, Alkaline Phosphatase 86, Total Protein 5.7L, Albumin 2.3L, Globulin 3.4, Albumin/Globulin Ratio 0.7L 10/10/19 07:25: Arterial Blood pH 7.424, Arterial Blood Partial Pressure CO2 72.6*H, Arterial Blood Partial Pressure O2 201.1H, Arterial Blood HCO3 46.5*H, Arterial Blood Oxygen Saturation 99.2, Arterial Blood Base Excess 17.9*H, Norm Test Positive Current Medications Medications (Trade) Dose Ordered Sig/Zach Route PRN Reason Start Time Stop Time Status Last Admin Dose Admin Acetaminophen (Tylenol) 650 mg Q4H PRN ORAL Mild Pain/Temp > 100.5 10/06/19 06:30 11/05/19 06:29 10/09/19 17:04 Albuterol/ Ipratropium (Albuterol/ Ipratropium) 3 ml Q4HRT HHN 10/06/19 07:00 10/11/19 06:59 10/10/19 07:27 Bisacodyl (Dulcolax) 10 mg DAILYPRN PRN RECTAL Constipation 10/06/19 06:30 11/05/19 06:29 Chlorhexidine Gluconate (Elayne-Hex 2%) 1 applic DAILY@2000 TOPIC 10/08/19 20:00 11/07/19 19:59 10/09/19 20:08 Dextrose (Dextrose 50%) 25 ml Q30M PRN IV Hypoglycemia 10/06/19 06:30 11/05/19 06:29 Dextrose (Dextrose 50%) 50 ml Q30M PRN IV Hypoglycemia 10/06/19 06:30 11/05/19 06:29 10/07/19 11:43 Docusate Sodium (Colace) 200 mg DAILY ORAL 10/06/19 09:00 11/05/19 08:59 10/09/19 08:08 Furosemide (Lasix) 40 mg DAILY IV 10/06/19 09:00 11/05/19 08:59 10/09/19 08:09 Insulin Aspart (NovoLOG) BEFORE MEALS AND HS SUBQ 10/06/19 06:30 11/05/19 06:29 10/09/19 17:05 Magnesium Hydroxide (Mom) 30 ml DAILYPRN PRN ORAL Constipation 10/06/19 06:30 11/05/19 06:29 Midodrine (Pro-Amatine) 10 mg THREE TIMES A DAY ORAL 10/07/19 18:00 11/06/19 17:59 10/09/19 17:03 Nifedipine (Adalat) 10 mg Q8HR PRN ORAL SBP >170 10/06/19 06:30 11/05/19 06:29 Pantoprazole (Protonix) 40 mg DAILY IVP 10/08/19 09:00 11/07/19 08:59 10/09/19 08:07 Piperacillin Sod/ Tazobactam Sod 3.375 gm/Sodium Chloride 110 ml @ 27.5 mls/hr Q8H IVPB 10/08/19 03:00 10/15/19 02:59 10/10/19 03:10 Potassium Chloride (K-Dur) 40 meq ONCE ORAL 10/10/19 08:00 10/10/19 10:00 Rivaroxaban (Xarelto) 15 mg DAILY ORAL 10/08/19 09:00 11/07/19 08:59 10/09/19 08:08 Sennosides (Senokot) 8.6 mg DAILY PRN ORAL Constipation 10/06/19 06:30 11/05/19 06:29 Spironolactone (Aldactone) 50 mg DAILY ORAL 10/06/19 09:00 11/05/19 08:59 10/09/19 08:09 Mason Villanueva MD Oct 10, 2019 08:55
[2019-10-10] MEDS: Xarelto 15mg tab ORAL SCH (09:00)
--- NOTE | 2019-10-10 09:16 | NUR ---
NURSE NOTES: Dr. Villanueva made aware of abg results with PCO2 of 72.6, assess patient at the bedside and patient is awake and able to communicate with daughter who is at the bedside. no orders given at this time and monitor at this time.
--- NOTE | 2019-10-10 10:09 | NUR ---
NURSE NOTES: Dr. Rincon aware of medication Lasix 40mg IV to be held dur to BP of 94/52 and Xeralto 15mg PO since PLT is 73. no further orders given at this time.
--- NOTE | 2019-10-10 11:14 | NUR ---
RD ASSESSMENT & RECOMMENDATIONS SEE CARE ACTIVITY FOR COMPLETE ASSESSMENT DAILY ESTIMATED NEEDS: Needs based on Underweight, wound 48.4kg 30-35 kcals/kg [id number] total kcals 1.25-1.5 g protein/kg 61-73 g total protein Fluid per MD, on lasix NUTRITION DIAGNOSIS: Increased kcal and pro needs r/t wound healing and wasting as evidenced by sacral wound, eval pending, pt w/ generalized moderate to severe muscle and fat wasting. CURRENT DIET:Regular liq puree texture w/ NTL PO DIET RECOMMENDATIONS: Liberalized REGULAR DIET / texture per [employer] OPERATOR ENTERAL NUTRITION RECOMMENDATIONS: Glucerna 1.2 @55ml/hr x24 hrs to provide 1320ml, 1584 kcal, 73g pro, 1063ml free H2O - Obtain GI access, initiate Glucerna 1.2 @low rate 15ml/hr. - Advance as tolerated 10ml/hr q4-6 hrs to goal - Flush per MD. HOB over 30 degrees ADDITIONAL RECOMMENDATIONS: 1) Maintain calibrated bed scale wts 2) Glucerna TID w/ meals 3) Wound care: w/ diet order add JERRY BID + Vit C 250mg BID + MVI w/ min daily 4) Continuous oral hygiene care-> pt appears to have severe dry mouth 5) TF recs as above as needed 6) Rec added D5 w/ NPO status to prevent hypoglycemia
[2019-10-10 12:00] VITALS: BP 102/58
--- NOTE | 2019-10-10 12:22 | Infectious Diseases Prog Note ---
Assessment/Plan Assessment/Plan A; 1. Possible community-acquired pneumonia. 2. Congestive heart failure, systolic 3. Diabetes. 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 Cirrhosis 6. Anemia 7. Thrombocytopenia 8. Hypercapnic respiratory failure PLAN: 1. continue Zosyn for now. 2. We will follow up cultures and adjust antibiotics accordingly Subjective ROS Limited/Unobtainable: Yes Constitutional: Denies: fever Allergies: Coded Allergies: No Known Allergies (Unverified , 10/05/19) Objective Vital Signs Last 24 Hour Vital Signs Date Time Temp Pulse Resp B/P (MAP) Pulse Ox O2 Delivery O2 Flow Rate FiO2 10/10/19 12:00 75 10/10/19 12:00 97.7 70 23 102/58 (73) 100 10/10/19 12:00 30 10/10/19 12:00 Nasal Cannula 2.0 10/10/19 08:00 Nasal Cannula 2.0 10/10/19 08:00 2.0 10/10/19 08:00 97.3 62 14 94/52 (66) 97 10/10/19 08:00 68 10/10/19 07:37 69 18 100 Nasal Cannula 2.0 28 67 16 98 10/10/19 07:37 71 18 100 Nasal Cannula 2.0 28 69 18 99 10/10/19 07:26 100 Nasal Cannula 2.0 28 10/10/19 04:00 2.0 10/10/19 04:00 Nasal Cannula 2.0 10/10/19 03:30 70 10/10/19 03:27 72 14 100 Nasal Cannula 2.0 28 71 14 100 10/10/19 00:00 Nasal Cannula 2.0 10/09/19 23:36 73 10/09/19 23:00 75 15 100 Nasal Cannula 2.0 28 74 14 99 10/09/19 20:11 97.7 70 16 91/47 (62) 100 10/09/19 20:00 2.0 10/09/19 20:00 Nasal Cannula 2.0 10/09/19 19:36 74 20 100 Nasal Cannula 2.0 28 71 18 100 10/09/19 19:35 100 Nasal Cannula 2.0 28 10/09/19 19:01 71 10/09/19 16:32 76 18 100 Nasal Cannula 2.0 28 72 17 98 10/09/19 16:00 Nasal Cannula 2.0 10/09/19 16:00 74 10/09/19 16:00 2.0 10/09/19 16:00 97.2 70 18 85/52 (63) 100 Height (Feet): 5 Height (Inches): 3.00 Weight (Pounds): 101 General Appearance: cachetic HEENT: mucous membranes moist Respiratory/Chest: lungs clear Cardiovascular: normal rate Abdomen: soft, non tender Extremities: no edema Neurologic/Psychiatric: alert, responsive Laboratory Tests Test 10/10/19 03:15 10/10/19 07:25 Sodium Level 148 MMOL/L (136-145) H Potassium Level 3.2 MMOL/L (3.5-5.1) L Chloride Level 103 MMOL/L (98-107) Carbon Dioxide Level > 45 MMOL/L (21-32) *H Blood Urea Nitrogen 19 mg/dL (7-18) H Creatinine 0.5 MG/DL (0.55-1.30) L Estimat Glomerular Filtration Rate mL/min (>60) Glucose Level 113 MG/DL (74-106) H Calcium Level 8.6 MG/DL (8.5-10.1) Total Bilirubin 2.0 MG/DL (0.2-1.0) H Direct Bilirubin 0.6 MG/DL (0.0-0.3) H Aspartate Amino Transf (AST/SGOT) 35 U/L (15-37) Alanine Aminotransferase (ALT/SGPT) 48 U/L (12-78) Alkaline Phosphatase 86 U/L (46-116) Total Protein 5.7 G/DL (6.4-8.2) L Albumin 2.3 G/DL (3.4-5.0) L Globulin 3.4 g/dL Albumin/Globulin Ratio 0.7 (1.0-2.7) L Arterial Blood pH 7.424 (7.350-7.450) Arterial Blood Partial Pressure CO2 72.6 mmHg (35.0-45.0) *H Arterial Blood Partial Pressure O2 201.1 mmHg (75.0-100.0) H Arterial Blood HCO3 46.5 mmol/L (22.0-26.0) *H Arterial Blood Oxygen Saturation 99.2 % (95-100) Arterial Blood Base Excess 17.9 (-2-2) *H Norm Test Positive Current Medications Medications (Trade) Dose Ordered Sig/Zach Route PRN Reason Start Time Stop Time Status Last Admin Dose Admin Acetaminophen (Tylenol) 650 mg Q4H PRN ORAL Mild Pain/Temp > 100.5 10/06/19 06:30 11/05/19 06:29 10/09/19 17:04 Albuterol/ Ipratropium (Albuterol/ Ipratropium) 3 ml Q4HRT HHN 10/06/19 07:00 10/11/19 06:59 10/10/19 10:45 Bisacodyl (Dulcolax) 10 mg DAILYPRN PRN RECTAL Constipation 10/06/19 06:30 11/05/19 06:29 Chlorhexidine Gluconate (Elayne-Hex 2%) 1 applic DAILY@2000 TOPIC 10/08/19 20:00 11/07/19 19:59 10/09/19 20:08 Dextrose (Dextrose 50%) 25 ml Q30M PRN IV Hypoglycemia 10/06/19 06:30 11/05/19 06:29 Dextrose (Dextrose 50%) 50 ml Q30M PRN IV Hypoglycemia 10/06/19 06:30 11/05/19 06:29 10/07/19 11:43 Docusate Sodium (Colace) 200 mg DAILY ORAL 10/06/19 09:00 11/05/19 08:59 10/10/19 08:43 Furosemide (Lasix) 40 mg DAILY IV 10/06/19 09:00 11/05/19 08:59 10/09/19 08:09 Insulin Aspart (NovoLOG) BEFORE MEALS AND HS SUBQ 10/06/19 06:30 11/05/19 06:29 10/10/19 11:35 Magnesium Hydroxide (Mom) 30 ml DAILYPRN PRN ORAL Constipation 10/06/19 06:30 11/05/19 06:29 Midodrine (Pro-Amatine) 10 mg THREE TIMES A DAY ORAL 10/07/19 18:00 11/06/19 17:59 10/10/19 08:42 Nifedipine (Adalat) 10 mg Q8HR PRN ORAL SBP >170 10/06/19 06:30 11/05/19 06:29 Pantoprazole (Protonix) 40 mg DAILY IVP 10/08/19 09:00 11/07/19 08:59 10/10/19 08:43 Piperacillin Sod/ Tazobactam Sod 3.375 gm/Sodium Chloride 110 ml @ 27.5 mls/hr Q8H IVPB 10/08/19 03:00 10/15/19 02:59 10/10/19 11:32 Rivaroxaban (Xarelto) 15 mg DAILY ORAL 10/08/19 09:00 11/07/19 08:59 10/09/19 08:08 Sennosides (Senokot) 8.6 mg DAILY PRN ORAL Constipation 10/06/19 06:30 11/05/19 06:29 Spironolactone (Aldactone) 50 mg DAILY ORAL 10/06/19 09:00 11/05/19 08:59 10/10/19 08:43 Jayme Hay MD Oct 10, 2019 12:22
--- NOTE | 2019-10-10 14:19 | General Progress Note ---
Assessment/Plan Problem List: (1) Afib ICD Codes: I48.91 - Unspecified atrial fibrillation SNOMED: 68727513 (2) CHF exacerbation ICD Codes: I50.9 - Heart failure, unspecified SNOMED: 818843297, 77716751496552 Qualifiers: Qualified Codes: I50.9 - Heart failure, unspecified (3) Sepsis ICD Codes: A41.9 - Sepsis, unspecified organism SNOMED: 04176828 (4) PNA (pneumonia) ICD Codes: J18.9 - Pneumonia, unspecified organism SNOMED: 113401248 (5) Decubitus skin ulcer ICD Codes: L89.90 - Pressure ulcer of unspecified site, unspecified stage SNOMED: 698851564 (6) Abnormal LFTs (liver function tests) ICD Codes: R94.5 - Abnormal results of liver function studies SNOMED: 830778913 Status: stable, not improved, unchanged Assessment/Plan: diuresis monitor renal fxn/labs follow up cxr iv abx monitor abg wean o2 bipap as needed resp rx swallow rx/encourage po- feeds for now d/w dtr- agrees to dnr. conservative rx only dc planning tomorrow if stable Subjective ROS Limited/Unobtainable: No Constitutional: Reports: malaise, weakness Cardiovascular: Reports: no symptoms Respiratory: Reports: cough Gastrointestinal/Abdominal: Reports: no symptoms Genitourinary: Reports: no symptoms Neurologic/Psychiatric: Reports: no symptoms Endocrine: Reports: no symptoms Hematologic/Lymphatic: Reports: no symptoms Allergies: Coded Allergies: No Known Allergies (Unverified , 10/05/19) All Systems: reviewed and negative except above Subjective no events. eating better. ngt removed. decreased sob. remains on iv abx. Objective Last 24 Hour Vital Signs Date Time Temp Pulse Resp B/P (MAP) Pulse Ox O2 Delivery O2 Flow Rate FiO2 10/10/19 12:00 75 10/10/19 12:00 97.7 70 23 102/58 (73) 100 10/10/19 12:00 30 10/10/19 12:00 Nasal Cannula 2.0 10/10/19 10:55 75 20 100 Bi-Pap 28 72 20 97 10/10/19 10:33 70 29 100 Facial 28 10/10/19 08:00 Nasal Cannula 2.0 10/10/19 08:00 2.0 10/10/19 08:00 97.3 62 14 94/52 (66) 97 10/10/19 08:00 68 10/10/19 07:37 69 18 100 Nasal Cannula 2.0 28 67 16 98 10/10/19 07:37 71 18 100 Nasal Cannula 2.0 28 69 18 99 10/10/19 07:26 100 Nasal Cannula 2.0 28 10/10/19 04:00 2.0 10/10/19 04:00 Nasal Cannula 2.0 10/10/19 03:30 70 10/10/19 03:27 72 14 100 Nasal Cannula 2.0 28 71 14 100 10/10/19 00:00 Nasal Cannula 2.0 10/09/19 23:36 73 10/09/19 23:00 75 15 100 Nasal Cannula 2.0 28 74 14 99 10/09/19 20:11 97.7 70 16 91/47 (62) 100 10/09/19 20:00 2.0 10/09/19 20:00 Nasal Cannula 2.0 10/09/19 19:36 74 20 100 Nasal Cannula 2.0 28 71 18 100 10/09/19 19:35 100 Nasal Cannula 2.0 28 10/09/19 19:01 71 10/09/19 16:32 76 18 100 Nasal Cannula 2.0 28 72 17 98 10/09/19 16:00 Nasal Cannula 2.0 10/09/19 16:00 74 10/09/19 16:00 2.0 10/09/19 16:00 97.2 70 18 85/52 (63) 100 Intake and Output 10/09/19 10/10/19 19:00 07:00 Intake Total 390.0 ml 165.0 ml Output Total 1700 ml 310 ml Balance -1310.0 ml -145.0 ml Intake Free Water 100 ml IV Total 110.0 ml 165.0 ml Tube Feeding 180 ml Output Urine Total 1700 ml 310 ml # Bowel Movements 3 1 Laboratory Tests 10/10/19 03:15: Sodium Level 148H, Potassium Level 3.2L, Chloride Level 103, Carbon Dioxide Level > 45*H, Blood Urea Nitrogen 19H, Creatinine 0.5L, Estimat Glomerular Filtration Rate , Glucose Level 113H, Calcium Level 8.6, Total Bilirubin 2.0H, Direct Bilirubin 0.6H, Aspartate Amino Transf (AST/SGOT) 35, Alanine Aminotransferase (ALT/SGPT) 48, Alkaline Phosphatase 86, Total Protein 5.7L, Albumin 2.3L, Globulin 3.4, Albumin/Globulin Ratio 0.7L 10/10/19 07:25: Arterial Blood pH 7.424, Arterial Blood Partial Pressure CO2 72.6*H, Arterial Blood Partial Pressure O2 201.1H, Arterial Blood HCO3 46.5*H, Arterial Blood Oxygen Saturation 99.2, Arterial Blood Base Excess 17.9*H, Norm Test Positive Height (Feet): 5 Height (Inches): 3.00 Weight (Pounds): 101 Objective General Appearance: WD/WN,alert. follow commands. cachetic, thin Neck: supple Cardiovascular: normal rate, regular rhythm Respiratory/Chest: lungs clear Abdomen: normal bowel sounds, non tender, soft, no organomegaly Edema: no edema noted Arm (L), no edema noted Arm (R), no edema noted Leg (L), no edema noted Leg (R), no edema noted Pedal (L), no edema noted Pedal (R), no edema noted Generalized Hakan Rincon MD Oct 10, 2019 14:19
--- NOTE | 2019-10-10 14:34 | NUR ---
ST NOTES: SWALLOW STATUS: PATIENT SEEN FOR DYSPHAGIA. GOALS FOR INTAKE MET AT 90% MOST OF THE TIME (75% ONE TIME) WHEN FED BY HER DAUGHTER ON A LIQUIFIED PUREED LIKE NECTAR THICK SOUP DIET. PER RN, JOSE, AND HER DTR., THE PATIENT GETS TIRED AND EATS SLOWLY SO AN UPGRADE IT NOT RECOMMENDED AT THIS TIME. PATIENTS NEEDS ENERGY CONSERVATION. GOALS MET FOR NEW STAFF AND DTR EDUCATED/TRAINED IN ASP PRECAUTIONS. UNABLE TO COMPLETE MOD BARIUM SWALLOW STUDY DUE TO SCHEDULE CONFLICTS. PLAN: CONTINUE WITH PLAN OF CARE AND CURRENT DIET/LIQUIDS WITH POSTED ASPIRATION PRECAUTIONS.
--- NOTE | 2019-10-10 15:33 | Surgery Progress Note ---
Surgery Progress Note Subjective Additional Comments no acute events abg noted tolerating tf Objective Last 24 Hour Vital Signs Date Time Temp Pulse Resp B/P (MAP) Pulse Ox O2 Delivery O2 Flow Rate FiO2 10/10/19 12:00 75 10/10/19 12:00 97.7 70 23 102/58 (73) 100 10/10/19 12:00 30 10/10/19 12:00 Nasal Cannula 2.0 10/10/19 10:55 75 20 100 Bi-Pap 28 72 20 97 10/10/19 10:33 70 29 100 Facial 28 10/10/19 08:00 Nasal Cannula 2.0 10/10/19 08:00 2.0 10/10/19 08:00 97.3 62 14 94/52 (66) 97 10/10/19 08:00 68 10/10/19 07:37 69 18 100 Nasal Cannula 2.0 28 67 16 98 10/10/19 07:37 71 18 100 Nasal Cannula 2.0 28 69 18 99 10/10/19 07:26 100 Nasal Cannula 2.0 28 10/10/19 04:00 2.0 10/10/19 04:00 Nasal Cannula 2.0 10/10/19 03:30 70 10/10/19 03:27 72 14 100 Nasal Cannula 2.0 28 71 14 100 10/10/19 00:00 Nasal Cannula 2.0 10/09/19 23:36 73 10/09/19 23:00 75 15 100 Nasal Cannula 2.0 28 74 14 99 10/09/19 20:11 97.7 70 16 91/47 (62) 100 10/09/19 20:00 2.0 10/09/19 20:00 Nasal Cannula 2.0 10/09/19 19:36 74 20 100 Nasal Cannula 2.0 28 71 18 100 10/09/19 19:35 100 Nasal Cannula 2.0 28 10/09/19 19:01 71 10/09/19 16:32 76 18 100 Nasal Cannula 2.0 28 72 17 98 10/09/19 16:00 Nasal Cannula 2.0 10/09/19 16:00 74 10/09/19 16:00 2.0 10/09/19 16:00 97.2 70 18 85/52 (63) 100 I&O Intake and Output 10/09/19 10/10/19 19:00 07:00 Intake Total 390.0 ml 165.0 ml Output Total 1700 ml 310 ml Balance -1310.0 ml -145.0 ml Intake Free Water 100 ml IV Total 110.0 ml 165.0 ml Tube Feeding 180 ml Output Urine Total 1700 ml 310 ml # Bowel Movements 3 1 Dressing: saturated Wound: other Drains: other Cardiovascular: RSR Respiratory: decreased breath sounds Abdomen: soft, present bowel sounds, non-distended Extremities: no tenderness, no cyanosis, other Laboratory Tests Test 10/10/19 03:15 10/10/19 07:25 Sodium Level 148 MMOL/L (136-145) H Potassium Level 3.2 MMOL/L (3.5-5.1) L Chloride Level 103 MMOL/L (98-107) Carbon Dioxide Level > 45 MMOL/L (21-32) *H Blood Urea Nitrogen 19 mg/dL (7-18) H Creatinine 0.5 MG/DL (0.55-1.30) L Estimat Glomerular Filtration Rate mL/min (>60) Glucose Level 113 MG/DL (74-106) H Calcium Level 8.6 MG/DL (8.5-10.1) Total Bilirubin 2.0 MG/DL (0.2-1.0) H Direct Bilirubin 0.6 MG/DL (0.0-0.3) H Aspartate Amino Transf (AST/SGOT) 35 U/L (15-37) Alanine Aminotransferase (ALT/SGPT) 48 U/L (12-78) Alkaline Phosphatase 86 U/L (46-116) Total Protein 5.7 G/DL (6.4-8.2) L Albumin 2.3 G/DL (3.4-5.0) L Globulin 3.4 g/dL Albumin/Globulin Ratio 0.7 (1.0-2.7) L Arterial Blood pH 7.424 (7.350-7.450) Arterial Blood Partial Pressure CO2 72.6 mmHg (35.0-45.0) *H Arterial Blood Partial Pressure O2 201.1 mmHg (75.0-100.0) H Arterial Blood HCO3 46.5 mmol/L (22.0-26.0) *H Arterial Blood Oxygen Saturation 99.2 % (95-100) Arterial Blood Base Excess 17.9 (-2-2) *H Norm Test Positive Plan Problems: (1) Abnormal LFTs (liver function tests) Assessment & Plan: lactic acidosis t bili elevated lft's abnormal stable The liver is heterogeneous with surface nodularity. Doppler interrogation of the main portal vein shows patency with hepatopedal, monophasic flow. There is no biliary ductal dilatation identified. Gallbladder is absent. CBD is 7.4 mm. Accounting for age and prior cholecystectomy this could be normal. Correlate clinically. There demonstrated part of the pancreas shows no definite abnormalities. Aorta is heavily calcified. Renal echogenicity is abnormally increased bilaterally. There is no hydronephrosis. Orozco catheter noted. There is a moderate right pleural effusion. IMPRESSION: Chronic liver disease/cirrhosis. Status post cholecystectomy Right pleural effusion Medical renal disease. Orozco catheter Atherosclerotic disease trend labs okay for diet will follow with recs thank you (2) Decubitus skin ulcer Assessment & Plan: Patient had an evaluation of stage III sacral decubitus ulcer full-thickness breakdown around the area of mid sacrum. Open wound approximately 5 cm x 4 cm with no signs of active infection. Periwound erythema mild. No fluctuance. No drainage. No foul odor. Apply Thera honey followed by foam dressing daily and as needed saturation. Turn every 2 hours. Air soft mattress. Will follow with recommendations. Thank you for let me participate in patient's care DAILY ESTIMATED NEEDS: Needs based on Underweight, wound 48.4kg 30-35 kcals/kg 7079-6900 total kcals 1.25-1.5 g protein/kg 61-73 g total protein Fluid per MD, on lasix NUTRITION DIAGNOSIS: Increased kcal and pro needs r/t wound healing and wasting as evidenced by sacral wound, eval pending, pt w/ generalized moderate to severe muscle and fat wasting. CURRENT DIET:Regular liq puree texture w/ NTL PO DIET RECOMMENDATIONS: Liberalized REGULAR DIET / texture per [employer]ICIAN ENTERAL NUTRITION RECOMMENDATIONS: Glucerna 1.2 @55ml/hr x24 hrs to provide 1320ml, 1584 kcal, 73g pro, 1063ml free H2O - Obtain GI access, initiate Glucerna 1.2 @low rate 15ml/hr. - Advance as tolerated 10ml/hr q4-6 hrs to goal - Flush per MD. HOB over 30 degrees ADDITIONAL RECOMMENDATIONS: 1) Maintain calibrated bed scale wts 2) Glucerna TID w/ meals 3) Wound care: w/ diet order add JERRY BID + Vit C 250mg BID + MVI w/ min daily 4) Continuous oral hygiene care-> pt appears to have severe dry mouth 5) TF recs as above as needed 6) Rec added D5 w/ NPO status to prevent hypoglycemia Norris Davies Oct 10, 2019 15:33
--- NOTE | 2019-10-10 19:37 | NUR ---
HAND-OFF: Report given to ROSA Santos. daughter is at the bedside with patient assisting with needs, patient remains talkative and responsive to touch and light pain,
--- NOTE | 2019-10-10 19:40 | NUR ---
NURSE NOTES: Received report from ROSA Marcus. Pt. observed resting in bed; awake and alert x3-4. Pt is on tele monitor with a HR of 82 noted, no signs/sx of cardiac distress noted. Pt remains on RA with no s/sx of respiratory distress noted. Lungs sounds noted to be diminished bilaterally upon auscultation. O2 saturation of 97% noted at this time. Orozco catheter noted and remains patent draining to gravity; urine yellow/straw in color. Right upper arm PICC line noted which remains asymptomatic, intact and patent. Dressing change last performed on 10/08/19 and remains dry and intact. Pt denies pain at this time. Family remains present at bedside. Pt remains resting in bed; bed remains in lowest position with safety wheels engaged, call light within easy reach, bed alarm on, side rails up x3 and bed alarm activated. Will continue plan of care. Will continue to monitor.
[2019-10-10 20:00] VITALS: BP 109/66
[2019-10-10] MEDS: Dyna-Hex 2% Top Sol 2oz TOPIC SCH (20:06)
--- NOTE | 2019-10-10 20:30 | NUR ---
NURSE NOTES: Pt provided with a partial bed bath and oral care. Pt declines full bed bath and linen change at this time and noted to be pushing staff away. Will reattempt later. Pt remains resting in bed; bed remains in lowest position with safety wheels engaged, call light within easy reach, bed alarm on, side rails up x3 and bed alarm activated. Will continue plan of care. Will continue to monitor.
[2019-10-11] VITALS: BP 104/68
[2019-10-11] MEDS: Piperacillin/Tazobactam 3.375 GM in NS 110 ML IVPB SCH ×2 (02:05→11:25)
[2019-10-11] MEDS: Albuterol/Ipratropium 3ml neb HHN SCH (03:17)
[2019-10-11 04:00] VITALS: BP 114/72
[2019-10-11] MEDS: NovoLOG Insulin Flexpen SUBQ SCH ×2 (05:47→11:37)
--- NOTE | 2019-10-11 05:55 | NUR ---
NURSE NOTES: Spoke with Dr Rincon regarding labs confirmed new orders fo ABG, CBC and CMP Will carry out orders. Will continue to monitor.
--- NOTE | 2019-10-11 07:20 | NUR ---
NURSE NOTES: Report received from Jake LEE.Pt sitting up on high fowlers in bed eating breakfast feed by daughter,awake alert follows command,,in no resp distress denies any c/o pain or discomfort,SR on the monitor,skin warm and dry with IV PICC line to NICK intact,SR up x2 HOB elevated bed lock in lowest position ,will continue with plans of care
--- NOTE | 2019-10-11 07:51 | General Progress Note ---
Assessment/Plan Problem List: (1) Afib ICD Codes: I48.91 - Unspecified atrial fibrillation SNOMED: 30312472 (2) CHF exacerbation ICD Codes: I50.9 - Heart failure, unspecified SNOMED: 217978683, [id number] Qualifiers: Qualified Codes: I50.9 - Heart failure, unspecified (3) Sepsis ICD Codes: A41.9 - Sepsis, unspecified organism SNOMED: 03203234 (4) PNA (pneumonia) ICD Codes: J18.9 - Pneumonia, unspecified organism SNOMED: 580053573 (5) Decubitus skin ulcer ICD Codes: L89.90 - Pressure ulcer of unspecified site, unspecified stage SNOMED: 039166983 (6) Abnormal LFTs (liver function tests) ICD Codes: R94.5 - Abnormal results of liver function studies SNOMED: 181565131 Status: stable, not improved, unchanged Assessment/Plan: diuresis monitor renal fxn/labs follow up cxr iv abx monitor abg wean o2 bipap as needed resp rx swallow rx/encourage po- feeds for now d/w dtr- agrees to dnr. conservative rx only dc planning pending review of labs Subjective ROS Limited/Unobtainable: No Constitutional: Reports: malaise, weakness HEENT: Reports: no symptoms Cardiovascular: Reports: no symptoms Respiratory: Reports: cough, shortness of breath Gastrointestinal/Abdominal: Reports: no symptoms Genitourinary: Reports: no symptoms Neurologic/Psychiatric: Reports: no symptoms Endocrine: Reports: no symptoms Hematologic/Lymphatic: Reports: no symptoms Allergies: Coded Allergies: No Known Allergies (Unverified , 10/05/19) All Systems: reviewed and negative except above Subjective no events. eating better. more alert. less sob. labs pending. family at the bedside Objective Last 24 Hour Vital Signs Date Time Temp Pulse Resp B/P (MAP) Pulse Ox O2 Delivery O2 Flow Rate FiO2 10/11/19 06:42 100 Nasal Cannula 2.0 28 10/11/19 04:00 98.0 85 20 114/72 (86) 96 10/11/19 04:00 Room Air 10/11/19 03:43 80 10/11/19 03:17 92 16 100 Nasal Cannula 2.0 28 89 16 100 10/11/19 00:00 Room Air 10/11/19 00:00 98.2 82 20 104/68 (80) 97 10/10/19 23:35 80 10/10/19 23:05 80 12 100 Nasal Cannula 2.0 28 75 12 100 10/10/19 21:22 76 100 10/10/19 20:00 2.0 10/10/19 20:00 Room Air 10/10/19 20:00 98.1 75 20 109/66 (80) 94 10/10/19 19:29 80 20 100 Room Air 21 78 20 96 10/10/19 19:25 95 Room Air 21 10/10/19 19:22 64 10/10/19 16:00 76 10/10/19 16:00 30 10/10/19 16:00 Nasal Cannula 2.0 10/10/19 15:49 78 20 100 Room Air 28 76 20 98 10/10/19 12:32 75 29 100 Facial 28 10/10/19 12:00 75 10/10/19 12:00 97.7 70 23 102/58 (73) 100 10/10/19 12:00 30 10/10/19 12:00 Nasal Cannula 2.0 10/10/19 10:55 75 20 100 Bi-Pap 28 72 20 97 10/10/19 10:33 70 29 100 Facial 28 10/10/19 08:00 Nasal Cannula 2.0 10/10/19 08:00 2.0 10/10/19 08:00 97.3 62 14 94/52 (66) 97 10/10/19 08:00 68 Intake and Output 10/10/19 10/11/19 18:59 06:59 Intake Total 220.0 ml Output Total 125 ml 300 ml Balance -125 ml -80.0 ml IV Total 220.0 ml Output Urine Total 125 ml 300 ml Height (Feet): 5 Height (Inches): 3.00 Weight (Pounds): 101 Objective General Appearance: WD/WN,alert. follow commands. cachetic, thin Neck: supple Cardiovascular: normal rate, regular rhythm Respiratory/Chest: lungs clear Abdomen: normal bowel sounds, non tender, soft, no organomegaly Edema: no edema noted Arm (L), no edema noted Arm (R), no edema noted Leg (L), no edema noted Leg (R), no edema noted Pedal (L), no edema noted Pedal (R), no edema noted Generalized Hakan Rincon MD Oct 11, 2019 07:51
[2019-10-11] MEDS ORDERED: ZOSYN 3.373.375 GM/1 IVPB (07:53)
[2019-10-11] MEDS ORDERED: FUROSEMIDE40 MG ORAL (07:53)
[2019-10-11] MEDS ORDERED: ASCORBIC ACID500 M4 ORAL (07:53)
[2019-10-11] MEDS ORDERED: ALDACTONE50 MG ORAL (07:53)
[2019-10-11] MEDS ORDERED: XARELTO15 MG ORAL (07:53)
[2019-10-11 08:35] LABS: HEMATOCRIT 45.5 % (37.0-47.0); HEMOGLOBIN 15.3 G/DL (12.0-16.0); MEAN CORPUSCULAR VOLUME 105 FL (80-99); PLATELET COUNT 75 K/UL (150-450); RED BLOOD COUNT 4.32 M/UL (4.20-5.40); RED CELL DISTRIBUTION WIDTH 13.8 % (11.6-14.8); WHITE BLOOD COUNT 6.1 K/UL (4.8-10.8)
[2019-10-11 09:00] LABS: ALANINE AMINOTRANSFERASE 43 U/L (12-78); ALBUMIN 2.4 G/DL (3.4-5.0); ALBUMIN/GLOBULIN RATIO 0.6 (1.0-2.7); ALKALINE PHOSPHATASE 88 U/L (46-116); ANION GAP 4 mmol/L (5-15); ASPARTATE AMINO TRANSFERASE 41 U/L (15-37); BILIRUBIN,TOTAL 2.3 MG/DL (0.2-1.0); BLOOD UREA NITROGEN 25 mg/dL (7-18); CALCIUM 9.2 MG/DL (8.5-10.1); CARBON DIOXIDE 40 MMOL/L (21-32); CHLORIDE 104 MMOL/L (98-107); CREATININE 0.6 MG/DL (0.55-1.30); POTASSIUM 4.5 MMOL/L (3.5-5.1); SODIUM 148 MMOL/L (136-145)
[2019-10-11] MEDS: Xarelto 15mg tab ORAL SCH (09:00)
[2019-10-11] MEDS ORDERED: Ascorbic Acid 500mg tab ORAL SCH (09:00)
[2019-10-11 09:01] LABS: BILIRUBIN,DIRECT 0.7 MG/DL (0.0-0.3)
--- NOTE | 2019-10-11 09:10 | NUR ---
RADIOLOGY DEPT., CHEST X-RAY DONE.P.DYE
[2019-10-11] MEDS: Docusate 100mg cap ORAL SCH (09:27)
[2019-10-11] MEDS: Midodrine 10mg tab ORAL SCH ×2 (09:28→15:28)
[2019-10-11] MEDS: Spironolactone 50mg tab ORAL SCH (09:28)
--- NOTE | 2019-10-11 09:58 | Infectious Diseases Prog Note ---
Assessment/Plan Assessment/Plan antibiotics : zosyn A 1. pneumonia 2. CHF 3. cirrhosis 4. thrombocytopenia 5. rectal VRE colonization P 1. continue zosyn 1 more day 2. will follow up cultures Subjective ROS Limited/Unobtainable: Yes Allergies: Coded Allergies: No Known Allergies (Unverified , 10/05/19) Objective Vital Signs Last 24 Hour Vital Signs Date Time Temp Pulse Resp B/P (MAP) Pulse Ox O2 Delivery O2 Flow Rate FiO2 10/11/19 09:04 83 16 100 Nasal Cannula 2.0 28 10/11/19 06:42 100 Nasal Cannula 2.0 28 10/11/19 04:00 98.0 85 20 114/72 (86) 96 10/11/19 04:00 Room Air 10/11/19 03:43 80 10/11/19 03:17 92 16 100 Nasal Cannula 2.0 28 89 16 100 10/11/19 00:00 Room Air 10/11/19 00:00 98.2 82 20 104/68 (80) 97 10/10/19 23:35 80 10/10/19 23:05 80 12 100 Nasal Cannula 2.0 28 75 12 100 10/10/19 21:22 76 100 10/10/19 20:00 2.0 10/10/19 20:00 Room Air 10/10/19 20:00 98.1 75 20 109/66 (80) 94 10/10/19 19:29 80 20 100 Room Air 21 78 20 96 10/10/19 19:25 95 Room Air 21 10/10/19 19:22 64 10/10/19 16:00 76 10/10/19 16:00 30 10/10/19 16:00 Nasal Cannula 2.0 10/10/19 15:49 78 20 100 Room Air 28 76 20 98 10/10/19 12:32 75 29 100 Facial 28 10/10/19 12:00 75 10/10/19 12:00 97.7 70 23 102/58 (73) 100 10/10/19 12:00 30 10/10/19 12:00 Nasal Cannula 2.0 10/10/19 10:55 75 20 100 Bi-Pap 28 72 20 97 10/10/19 10:33 70 29 100 Facial 28 Height (Feet): 5 Height (Inches): 3.00 Weight (Pounds): 101 Respiratory/Chest: lungs clear Cardiovascular: normal rate, regular rhythm, no gallop/murmur Abdomen: soft, non tender Extremities: no edema Laboratory Tests Test 10/11/19 08:20 10/11/19 09:05 White Blood Count 6.1 K/UL (4.8-10.8) Red Blood Count 4.32 M/UL (4.20-5.40) Hemoglobin 15.3 G/DL (12.0-16.0) Hematocrit 45.5 % (37.0-47.0) Mean Corpuscular Volume 105 FL (80-99) H Mean Corpuscular Hemoglobin 35.3 PG (27.0-31.0) H Mean Corpuscular Hemoglobin Concent 33.5 G/DL (32.0-36.0) Red Cell Distribution Width 13.8 % (11.6-14.8) Platelet Count 75 K/UL (150-450) L Mean Platelet Volume 8.9 FL (6.5-10.1) Neutrophils (%) (Auto) % (45.0-75.0) Lymphocytes (%) (Auto) % (20.0-45.0) Monocytes (%) (Auto) % (1.0-10.0) Eosinophils (%) (Auto) % (0.0-3.0) Basophils (%) (Auto) % (0.0-2.0) Differential Total Cells Counted 100 Neutrophils % (Manual) 92 % (45-75) H Lymphocytes % (Manual) 6 % (20-45) L Monocytes % (Manual) 2 % (1-10) Eosinophils % (Manual) 0 % (0-3) Basophils % (Manual) 0 % (0-2) Band Neutrophils 0 % (0-8) Platelet Estimate Decreased L Platelet Morphology Normal Macrocytosis 1+ Sodium Level 148 MMOL/L (136-145) H Potassium Level 4.5 MMOL/L (3.5-5.1) Chloride Level 104 MMOL/L (98-107) Carbon Dioxide Level 40 MMOL/L (21-32) H Anion Gap 4 mmol/L (5-15) L Blood Urea Nitrogen 25 mg/dL (7-18) H Creatinine 0.6 MG/DL (0.55-1.30) Estimat Glomerular Filtration Rate mL/min (>60) Glucose Level 177 MG/DL (74-106) H Calcium Level 9.2 MG/DL (8.5-10.1) Total Bilirubin 2.3 MG/DL (0.2-1.0) H Direct Bilirubin 0.7 MG/DL (0.0-0.3) H Aspartate Amino Transf (AST/SGOT) 41 U/L (15-37) H Alanine Aminotransferase (ALT/SGPT) 43 U/L (12-78) Alkaline Phosphatase 88 U/L (46-116) Total Protein 6.1 G/DL (6.4-8.2) L Albumin 2.4 G/DL (3.4-5.0) L Globulin 3.7 g/dL Albumin/Globulin Ratio 0.6 (1.0-2.7) L Arterial Blood pH 7.439 (7.350-7.450) Arterial Blood Partial Pressure CO2 55.8 mmHg (35.0-45.0) *H Arterial Blood Partial Pressure O2 155.6 mmHg (75.0-100.0) H Arterial Blood HCO3 37.0 mmol/L (22.0-26.0) H Arterial Blood Oxygen Saturation 99.1 % (95-100) Arterial Blood Base Excess 10.5 (-2-2) *H Norm Test Positive Current Medications Medications (Trade) Dose Ordered Sig/Zach Route PRN Reason Start Time Stop Time Status Last Admin Dose Admin Acetaminophen (Tylenol) 650 mg Q4H PRN ORAL Mild Pain/Temp > 100.5 10/06/19 06:30 11/05/19 06:29 10/09/19 17:04 Ascorbic Acid (Vitamin C) 250 mg DAILY ORAL 10/11/19 09:00 11/10/19 08:59 10/11/19 09:28 Bisacodyl (Dulcolax) 10 mg DAILYPRN PRN RECTAL Constipation 10/06/19 06:30 11/05/19 06:29 Chlorhexidine Gluconate (Elayne-Hex 2%) 1 applic DAILY@2000 TOPIC 10/08/19 20:00 11/07/19 19:59 10/10/19 20:06 Dextrose (Dextrose 50%) 25 ml Q30M PRN IV Hypoglycemia 10/06/19 06:30 11/05/19 06:29 Dextrose (Dextrose 50%) 50 ml Q30M PRN IV Hypoglycemia 10/06/19 06:30 11/05/19 06:29 10/07/19 11:43 Docusate Sodium (Colace) 200 mg DAILY ORAL 10/06/19 09:00 11/05/19 08:59 10/11/19 09:27 Furosemide (Lasix) 40 mg DAILY IV 10/06/19 09:00 11/05/19 08:59 10/11/19 09:28 Insulin Aspart (NovoLOG) BEFORE MEALS AND HS SUBQ 10/06/19 06:30 11/05/19 06:29 10/10/19 16:55 Magnesium Hydroxide (Mom) 30 ml DAILYPRN PRN ORAL Constipation 10/06/19 06:30 11/05/19 06:29 Midodrine (Pro-Amatine) 10 mg THREE TIMES A DAY ORAL 10/07/19 18:00 11/06/19 17:59 10/11/19 09:28 Multivitamins (Multivitamins) 1 tab DAILY ORAL 10/11/19 09:00 11/10/19 08:59 10/11/19 09:28 Nifedipine (Adalat) 10 mg Q8HR PRN ORAL SBP >170 10/06/19 06:30 11/05/19 06:29 Pantoprazole (Protonix) 40 mg DAILY ORAL 10/11/19 09:00 11/10/19 08:59 10/11/19 09:28 Piperacillin Sod/ Tazobactam Sod 3.375 gm/Sodium Chloride 110 ml @ 27.5 mls/hr Q8H IVPB 10/08/19 03:00 10/15/19 02:59 10/11/19 02:05 Rivaroxaban (Xarelto) 15 mg DAILY ORAL 10/08/19 09:00 11/07/19 08:59 10/09/19 08:08 Sennosides (Senokot) 8.6 mg DAILY PRN ORAL Constipation 10/06/19 06:30 11/05/19 06:29 Spironolactone (Aldactone) 50 mg DAILY ORAL 10/06/19 09:00 11/05/19 08:59 10/11/19 09:28 Dalila Zuniga MD Oct 11, 2019 09:58
[2019-10-11 10:00] VITALS: BP 118/80
--- NOTE | 2019-10-11 10:50 | NUR ---
NURSE NOTES: Seen by Dr Rincon,discharge orders given.
--- NOTE | 2019-10-11 11:02 | NUR ---
*-* DISCHARGE PLANNING *-* PATIENT HAS BEEN REFERRED BACK TO: [facility] P; [phone] F: [phone] S/W DEE[facility] AT [facility] PATIENT HAS BEEN ACCEPTED TO RM# [facility]-C SKILLED
--- NOTE | 2019-10-11 11:25 | Surgery Progress Note ---
Surgery Progress Note Subjective Additional Comments no acute events stable comfortable exam unchanged Objective Last 24 Hour Vital Signs Date Time Temp Pulse Resp B/P (MAP) Pulse Ox O2 Delivery O2 Flow Rate FiO2 10/11/19 10:00 98.2 84 22 118/80 (93) 97 10/11/19 09:04 83 16 100 Nasal Cannula 2.0 28 10/11/19 06:42 100 Nasal Cannula 2.0 28 10/11/19 04:00 98.0 85 20 114/72 (86) 96 10/11/19 04:00 Room Air 10/11/19 03:43 80 10/11/19 03:17 92 16 100 Nasal Cannula 2.0 28 89 16 100 10/11/19 00:00 Room Air 10/11/19 00:00 98.2 82 20 104/68 (80) 97 10/10/19 23:35 80 10/10/19 23:05 80 12 100 Nasal Cannula 2.0 28 75 12 100 10/10/19 21:22 76 100 10/10/19 20:00 2.0 10/10/19 20:00 Room Air 10/10/19 20:00 98.1 75 20 109/66 (80) 94 10/10/19 19:29 80 20 100 Room Air 21 78 20 96 10/10/19 19:25 95 Room Air 21 10/10/19 19:22 64 10/10/19 16:00 76 10/10/19 16:00 30 10/10/19 16:00 Nasal Cannula 2.0 10/10/19 15:49 78 20 100 Room Air 28 76 20 98 10/10/19 12:32 75 29 100 Facial 28 10/10/19 12:00 75 10/10/19 12:00 97.7 70 23 102/58 (73) 100 10/10/19 12:00 30 10/10/19 12:00 Nasal Cannula 2.0 I&O Intake and Output 10/10/19 10/11/19 19:00 07:00 Intake Total 220.0 ml Output Total 125 ml 300 ml Balance -125 ml -80.0 ml IV Total 220.0 ml Output Urine Total 125 ml 300 ml Dressing: other Wound: other Drains: other Cardiovascular: RSR Respiratory: decreased breath sounds Abdomen: soft, present bowel sounds Extremities: no cyanosis Laboratory Tests Test 10/11/19 08:20 10/11/19 09:05 White Blood Count 6.1 K/UL (4.8-10.8) Red Blood Count 4.32 M/UL (4.20-5.40) Hemoglobin 15.3 G/DL (12.0-16.0) Hematocrit 45.5 % (37.0-47.0) Mean Corpuscular Volume 105 FL (80-99) H Mean Corpuscular Hemoglobin 35.3 PG (27.0-31.0) H Mean Corpuscular Hemoglobin Concent 33.5 G/DL (32.0-36.0) Red Cell Distribution Width 13.8 % (11.6-14.8) Platelet Count 75 K/UL (150-450) L Mean Platelet Volume 8.9 FL (6.5-10.1) Neutrophils (%) (Auto) % (45.0-75.0) Lymphocytes (%) (Auto) % (20.0-45.0) Monocytes (%) (Auto) % (1.0-10.0) Eosinophils (%) (Auto) % (0.0-3.0) Basophils (%) (Auto) % (0.0-2.0) Differential Total Cells Counted 100 Neutrophils % (Manual) 92 % (45-75) H Lymphocytes % (Manual) 6 % (20-45) L Monocytes % (Manual) 2 % (1-10) Eosinophils % (Manual) 0 % (0-3) Basophils % (Manual) 0 % (0-2) Band Neutrophils 0 % (0-8) Platelet Estimate Decreased L Platelet Morphology Normal Macrocytosis 1+ Sodium Level 148 MMOL/L (136-145) H Potassium Level 4.5 MMOL/L (3.5-5.1) Chloride Level 104 MMOL/L (98-107) Carbon Dioxide Level 40 MMOL/L (21-32) H Anion Gap 4 mmol/L (5-15) L Blood Urea Nitrogen 25 mg/dL (7-18) H Creatinine 0.6 MG/DL (0.55-1.30) Estimat Glomerular Filtration Rate mL/min (>60) Glucose Level 177 MG/DL (74-106) H Calcium Level 9.2 MG/DL (8.5-10.1) Total Bilirubin 2.3 MG/DL (0.2-1.0) H Direct Bilirubin 0.7 MG/DL (0.0-0.3) H Aspartate Amino Transf (AST/SGOT) 41 U/L (15-37) H Alanine Aminotransferase (ALT/SGPT) 43 U/L (12-78) Alkaline Phosphatase 88 U/L (46-116) Total Protein 6.1 G/DL (6.4-8.2) L Albumin 2.4 G/DL (3.4-5.0) L Globulin 3.7 g/dL Albumin/Globulin Ratio 0.6 (1.0-2.7) L Arterial Blood pH 7.439 (7.350-7.450) Arterial Blood Partial Pressure CO2 55.8 mmHg (35.0-45.0) *H Arterial Blood Partial Pressure O2 155.6 mmHg (75.0-100.0) H Arterial Blood HCO3 37.0 mmol/L (22.0-26.0) H Arterial Blood Oxygen Saturation 99.1 % (95-100) Arterial Blood Base Excess 10.5 (-2-2) *H Norm Test Positive Plan Problems: (1) Abnormal LFTs (liver function tests) Assessment & Plan: lactic acidosis t bili elevated lft's abnormal stable The liver is heterogeneous with surface nodularity. Doppler interrogation of the main portal vein shows patency with hepatopedal, monophasic flow. There is no biliary ductal dilatation identified. Gallbladder is absent. CBD is 7.4 mm. Accounting for age and prior cholecystectomy this could be normal. Correlate clinically. There demonstrated part of the pancreas shows no definite abnormalities. Aorta is heavily calcified. Renal echogenicity is abnormally increased bilaterally. There is no hydronephrosis. Orozco catheter noted. There is a moderate right pleural effusion. IMPRESSION: Chronic liver disease/cirrhosis. Status post cholecystectomy Right pleural effusion Medical renal disease. Orozco catheter Atherosclerotic disease trend labs okay for diet will follow with recs thank you (2) Decubitus skin ulcer Assessment & Plan: Patient had an evaluation of stage III sacral decubitus ulcer full-thickness breakdown around the area of mid sacrum. Open wound approximately 5 cm x 4 cm with no signs of active infection. Periwound erythema mild. No fluctuance. No drainage. No foul odor. Apply Thera honey followed by foam dressing daily and as needed saturation. Turn every 2 hours. Air soft mattress. Will follow with recommendations. Thank you for let me participate in patient's care DAILY ESTIMATED NEEDS: Needs based on Underweight, wound 48.4kg 30-35 kcals/kg 0328-3830 total kcals 1.25-1.5 g protein/kg 61-73 g total protein Fluid per MD, on lasix NUTRITION DIAGNOSIS: Increased kcal and pro needs r/t wound healing and wasting as evidenced by sacral wound, eval pending, pt w/ generalized moderate to severe muscle and fat wasting. CURRENT DIET:Regular liq puree texture w/ NTL PO DIET RECOMMENDATIONS: Liberalized REGULAR DIET / texture per RIB SAWYER ENTERAL NUTRITION RECOMMENDATIONS: Glucerna 1.2 @55ml/hr x24 hrs to provide 1320ml, 1584 kcal, 73g pro, 1063ml free H2O - Obtain GI access, initiate Glucerna 1.2 @low rate 15ml/hr. - Advance as tolerated 10ml/hr q4-6 hrs to goal - Flush per MD. HOB over 30 degrees ADDITIONAL RECOMMENDATIONS: 1) Maintain calibrated bed scale wts 2) Glucerna TID w/ meals 3) Wound care: w/ diet order add JERRY BID + Vit C 250mg BID + MVI w/ min daily 4) Continuous oral hygiene care-> pt appears to have severe dry mouth 5) TF recs as above as needed 6) Rec added D5 w/ NPO status to prevent hypoglycemia Norris Davies Oct 11, 2019 11:25
[2019-10-11 12:00] VITALS: BP 136/65
--- NOTE | 2019-10-11 12:54 | Diagnostic Imaging Report ---
Indication: Dyspnea Comparison: 10/07/2019 A single view chest radiograph was obtained. Findings: Hazy opacities noted bilaterally at the lung bases consistent with pleural effusions. Groundglass opacities and prominent pulmonary vascularity noted throughout the lungs unchanged from the last study. A PICC line is been passed and is in good position with the tip in the SVC. IMPRESSION: PICC line in good position. CHF. Bilateral pleural effusions unchanged
--- NOTE | 2019-10-11 13:45 | NUR ---
NURSE NOTES: Report called out to [facility],spoke with Siam RN,updated re pt's status, V/S,medications.Pt with NICK PICC line and Orozco catheter ,receiving RN requested not to remove them.
[2019-10-11] MEDS ORDERED: 1/2 NS 1000ml IV ONE (16:04)
[2019-10-11] MEDS ORDERED: Tubing IV Secondary IV ONE (16:04)
[2019-10-11] MEDS ORDERED: NS 275ml ONE ×2 (16:04)
--- NOTE | 2019-10-11 16:05 | NUR ---
NURSE NOTES: Pt discharged and out of the unit per callie accompanied by ambulance personnel and son awake,alert in no resp distress no signs of pain or discomfort. with Orozco catheter and NICK PICC LINE per request of receiving staff interpreter.
--- NOTE | 2019-10-11 17:40 | Pulmonology Progress Note ---
Assessment/Plan Assessment/Plan CHF pulmonary edema acute respiratory failure pulmonary congestion sepsis hypoxemia severe PCM worsening hypercapnia PLAN care noted repeat ABG noted may need BIPAP at the snf follow up cxr and abg periodically monitor fluids and keep negative respiratory care acid base better and stable for dc antibiotics noted seen earlier DNR care noted impression, plan, and exam edited and reviewed in detail care discussed with RN Subjective ROS Limited/Unobtainable: Yes Allergies: Coded Allergies: No Known Allergies (Unverified , 10/05/19) Subjective care noted respiratory care reviewed on oxygen low flow seen earlier Objective Last 24 Hour Vital Signs Date Time Temp Pulse Resp B/P (MAP) Pulse Ox O2 Delivery O2 Flow Rate FiO2 10/11/19 16:00 Room Air 10/11/19 16:00 88 10/11/19 12:00 97.8 70 22 136/65 (88) 97 10/11/19 12:00 Room Air 10/11/19 11:27 78 10/11/19 10:00 98.2 84 22 118/80 (93) 97 10/11/19 09:04 83 16 100 Nasal Cannula 2.0 28 10/11/19 08:00 86 10/11/19 08:00 Room Air 10/11/19 06:42 100 Nasal Cannula 2.0 28 10/11/19 04:00 98.0 85 20 114/72 (86) 96 10/11/19 04:00 Room Air 10/11/19 03:43 80 10/11/19 03:17 92 16 100 Nasal Cannula 2.0 28 89 16 100 10/11/19 00:00 Room Air 10/11/19 00:00 98.2 82 20 104/68 (80) 97 10/10/19 23:35 80 10/10/19 23:05 80 12 100 Nasal Cannula 2.0 28 75 12 100 10/10/19 21:22 76 100 10/10/19 20:00 2.0 10/10/19 20:00 Room Air 10/10/19 20:00 98.1 75 20 109/66 (80) 94 10/10/19 19:29 80 20 100 Room Air 21 78 20 96 10/10/19 19:25 95 Room Air 21 10/10/19 19:22 64 Intake and Output 10/10/19 10/11/19 19:00 07:00 Intake Total 220.0 ml Output Total 125 ml 300 ml Balance -125 ml -80.0 ml IV Total 220.0 ml Output Urine Total 125 ml 300 ml Objective WDWN cachectic reduced breath sounds bilaterally without rhonchi or wheeze [id number] without MRG NABS nontender no HSM no CCE nonfocal improved skin turgor reviewed and edited Laboratory Tests 10/11/19 08:20: White Blood Count 6.1, Red Blood Count 4.32, Hemoglobin 15.3, Hematocrit 45.5, Mean Corpuscular Volume 105H, Mean Corpuscular Hemoglobin 35.3H, Mean Corpuscular Hemoglobin Concent 33.5, Red Cell Distribution Width 13.8, Platelet Count 75L, Mean Platelet Volume 8.9, Neutrophils (%) (Auto) , Lymphocytes (%) ( Auto) , Monocytes (%) (Auto) , Eosinophils (%) (Auto) , Basophils (%) (Auto) , Differential Total Cells Counted 100, Neutrophils % (Manual) 92H, Lymphocytes % (Manual) 6L, Monocytes % (Manual) 2, Eosinophils % (Manual) 0, Basophils % ( Manual) 0, Band Neutrophils 0, Platelet Estimate DecreasedL, Platelet Morphology Normal, Macrocytosis 1+, Sodium Level 148H, Potassium Level 4.5, Chloride Level 104, Carbon Dioxide Level 40H, Anion Gap 4L, Blood Urea Nitrogen 25H, Creatinine 0.6, Estimat Glomerular Filtration Rate , Glucose Level 177H, Calcium Level 9.2, Total Bilirubin 2.3H, Direct Bilirubin 0.7H, Aspartate Amino Transf (AST/SGOT) 41H, Alanine Aminotransferase (ALT/SGPT) 43, Alkaline Phosphatase 88, Total Protein 6.1L, Albumin 2.4L, Globulin 3.7, Albumin/ Globulin Ratio 0.6L 10/11/19 09:05: Arterial Blood pH 7.439, Arterial Blood Partial Pressure CO2 55.8*H, Arterial Blood Partial Pressure O2 155.6H, Arterial Blood HCO3 37.0H, Arterial Blood Oxygen Saturation 99.1, Arterial Blood Base Excess 10.5*H, Norm Test Positive Mason Villanueva MD Oct 11, 2019 17:40
--- NOTE | 2019-10-13 17:39 | Discharge Summary ---
Discharge Summary Discharge Summary _ DATE OF ADMISSION: 10/06/2019 DATE OF DISCHARGE: 10/11/2019 CONSULTANTS: Dr. Prakash Zuniga BRIEF HOSPITAL COURSE: The patient is an 84-year-old female. She has history of congestive heart failure, sick sinus syndrome status post pacemaker, hyponatremia, dementia and transferred from retirement facility due to acute onset of shortness of breath. On evaluation in the emergency room. The patient had an x-ray evidence of possible pneumonia and congestive heart failure. She was started on broad-spectrum antibiotics. She required BiPAP for respiratory support. She was then admitted for evaluation of acute respiratory failure with shortness of breath secondary to congestive heart failure exacerbation, cannot rule out underlying pneumonia. She was admitted on monitored floor. She was given IV antibiotics Zosyn and vancomycin. She was placed on cautious diuresis. She was continued on BiPAP support. ABG was monitored. She had multiple peripheral IV draw. A PICC line was placed on the right upper extremity. She was eventually tapered off the BiPAP. Patient had a elevated bilirubin. LFTs were elevated. Abdominal ultrasound showed chronic liver disease/cirrhosis. Status post cholecystectomy. She failed swallow evaluation. NG tube was inserted. She was started on tube feeding. Echocardiogram showed poor ejection fraction. Surveillance blood work showed worsening CO2 retention. She was given been BiPAP PRN. Patient had a stage III sacral decubitus ulcer full-thickness breakdown around the area of the mid sacrum. She was given wound care. She was placed on air soft mattress, with frequent repositioning and offloading. Daughter agreed to DNR. Patient was given conservative treatment. NG tube was discontinued. She was placed on liquefied pured like nectar thick soup diet. She was placed on strict aspiration precautions. Patient was discharged back to skilled nursing. FINAL DIAGNOSES: Acute CHF exacerbation Community-acquired pneumonia Acute respiratory failure requiring BiPAP, resolved Pulmonary edema Pulmonary congestion Sepsis Atrial fibrillation Thrombocytopenia Hypoxemia Severe protein calorie malnutrition Worsening hypercapnia Abnormal LFTs due to chronic liver disease Stage III sacral decubitus ulcer present on admission DISPOSITION: DC back to SNF DISCHARGE MEDICATIONS: Refer to Discharge Medication List. I have been assigned to complete a discharge summary on this account, I was not involved with the patient's management.--ISRAEL Parikh Jacqueline Robles NP Oct 13, 2019 17:39
--- NOTE | 2019-10-17 01:15 | Progress Note ---
DATE: 10/16/2019 NAHUN SANCHEZ Amrit Schmitt M.D. DR: ANNIE JOB#: [id number] CC:
== END 2019-10-11 16:05 | DRG 871 ==
LOC: EDBD 23:36 → EMR 10-06 00:05 → EDBEDREQ 10-06 03:02 → 2W 10-06 03:47
PROC: 5A09557 Assistance with Respiratory Ventilation, Greater than 96 Consecutive Hours, Continuous Positive Airway Pressure (ICD-10-PCS; principal; 2019-10-06)
PROC: 02HV33Z Insertion of Infusion Device into Superior Vena Cava, Percutaneous Approach (ICD-10-PCS; 2019-10-08)
PROC: B548ZZA Ultrasonography of Superior Vena Cava, Guidance (ICD-10-PCS; 2019-10-08)
PROC: B5181ZA Fluoroscopy of Superior Vena Cava using Low Osmolar Contrast, Guidance (ICD-10-PCS; 2019-10-08)
DX: A41.9 Sepsis, unspecified organism (principal); L89.153 Pressure ulcer of sacral region, stage 3; I21.4 Non-ST elevation (NSTEMI) myocardial infarction; J96.22 Acute and chronic respiratory failure with hypercapnia; E43 Unspecified severe protein-calorie malnutrition; I50.23 Acute on chronic systolic (congestive) heart failure; G93.41 Metabolic encephalopathy; J18.9 Pneumonia, unspecified organism; R64 Cachexia; I82.512 Chronic embolism and thrombosis of left femoral vein; E87.2 Acidosis; E87.1 Hypo-osmolality and hyponatremia; Z68.1 Body mass index [BMI] 19.9 or less, adult; R65.20 Severe sepsis without septic shock; E87.5 Hyperkalemia; D69.6 Thrombocytopenia, unspecified; I48.91 Unspecified atrial fibrillation; I49.5 Sick sinus syndrome; D64.9 Anemia, unspecified; E11.9 Type 2 diabetes mellitus without complications; K74.60 Unspecified cirrhosis of liver; I70.0 Atherosclerosis of aorta; F03.90 Unspecified dementia, unspecified severity, without behavioral disturbance, psychotic disturbance, mood disturbance, and anxiety; Z79.4 Long term (current) use of insulin; Z95.0 Presence of cardiac pacemaker; Z90.49 Acquired absence of other specified parts of digestive tract
CPT/HCPCS: 36415; 36569; 36600; 71045; 74018; 76700; 76937; 80053; 80202; 81003; 82150; 82248; 82803; 82962; 83605; 83690; 83735; 83880; 84100; 84484; 85007; 85025; 85610; 85651; 85730; 86140; 87040; 87081; 93005; 93306; 93970; 94640; 94660; 94664; 96365; 96367; 96375; 99291; J1815; J7030; J7620; J8499